=== PATIENT | female | born 1950 | race Caucasian/White ===

== ENCOUNTER 2023-11-27 09:58 | Outpatient (CLI) | payer OTHER, SELFPAY ==
--- NOTE | ~2023-11-27 | XR_ITS ---
Clinical Indication: Shortness of breath PA and lateral views of the chest: Comparison: None Findings: The lungs are clear, without evidence of focal consolidation or pleural effusion. Cardiome diastinal silhouette is within normal limits. Bones and soft tissues are unremarkable. Impression: Normal chest. Reviewed, dictated and finalized at [facility]. IAC TECHNOLOGIST Impression: Normal chest.
== END 2023-11-27 09:59 | disposition home or self-care (01) ==
PROVIDERS: PCP Family Medicine; Visit Provider Nurse Practitioner Family
DX: R06.02 Shortness of breath (principal)
CPT/HCPCS: 71046

== ENCOUNTER 2024-01-12 10:48 | Outpatient (CLI) | payer OTHER, SELFPAY ==
[2024-01-12 14:11] LABS: Alanine Aminotransferase 56 U/L (6-35); Albumin Level 4.4 g/dL (3.5-5.1); Alkaline Phosphatase 78 U/L (38-126); Anion Gap 4 mmol/L (8-16); Aspartate Amino Transferase 59 U/L (14-36); Bilirubin,Total 0.4 mg/dL (0.2-1.3); Blood Urea Nitrogen 28 mg/dL (7-17); Calcium 9.7 mg/dL (8.4-10.2); Carbon Dioxide 33 mmol/L (22-30); Chloride 99 mmol/L (98-107); Estimated Glomerular Filt Rate > 60; Glucose 169 mg/dL (65-110); Potassium 4.3 mmol/L (3.4-5.0); Sodium 136 mmol/L (137-145)
[2024-01-12 22:14] LABS: Hemoglobin A1C 8.6 % (<5.7)
== END 2024-01-12 10:49 | disposition home or self-care (01) ==
LOC: ANHGOSHLAB 10:50
PROVIDERS: PCP Family Medicine; Visit Provider Family Medicine
DX: E11.9 Type 2 diabetes mellitus without complications (principal); I10 Essential (primary) hypertension
CPT/HCPCS: 36415; 80053; 83036

== ENCOUNTER 2024-01-23 13:11 | Outpatient (CLI) | payer OTHER, SELFPAY ==
--- NOTE | ~2024-01-23 | XR_ITS ---
EXAMINATION: XR barium swallow DATE: 01/23/2024 14:00 INDICATION: Dysphagia. Choking on food. Hoarseness. TECHNIQUE: The patient drank thick barium, gas-producing crystals, and thin barium. Fluoroscopy of th e hypopharynx and esophagus was performed. Fluoroscopy exposure time was 0.4 minutes. The total numbe r of images was 263. The dose-area product was 1.631 Gy-cm^2. COMPARISON: None. FINDINGS: There is no mass or stricture of the esophagus. There is decreased primary and secondary es ophageal peristalsis. Abnormal tertiary waves were noted. There is no hiatal hernia. IMPRESSION: 1. Moderate esophageal dysmotility. Reviewed, dictated and finalized at location A.
== END 2024-01-23 13:12 | disposition home or self-care (01) ==
PROVIDERS: PCP Family Medicine; Visit Provider Family Medicine
DX: R13.19 Other dysphagia (principal); K22.4 Dyskinesia of esophagus
CPT/HCPCS: 74220

== ENCOUNTER 2024-02-10 09:49 | Outpatient (CLI) | payer OTHER, SELFPAY ==
--- NOTE | 2024-02-10 16:46 | WPDPFTINT ---
PFT Procedure Performed PFT Procedure Performed Spirometry with Pre/Post Bronchodilator Plethysmography (Lung Vol) Diffusing Cap (DLCO) Flow Vol Loop PFT Interpretation This is a pulmonary function test with pre and post-bronchodilator spirometry, plethysmography and diffusing capacity. The test was performed and results interpreted in accordance with the 2019 and 2005 ATS/ERS Task Force guidelines respectively using the Global Lung Function Initiative-2012 reference equations. Patient demonstrated good effort and cooperation. Reproducibility criteria were met. The quality of the pre bronchodilator spirometry maneuver was Grade A and post bronchodilator spirometry maneuver was Grade A. Findings: Spirometry: There is decreased maximal expiratory airflow at low lung volumes with concave expiratory flow tracing. The contour the inspiratory flow tracing is normal. The pre bronchodilator FVC is 1.95 L, 76% predicted. The pre bronchodilator FEV1 is 1.32 L, 66% predicted. The pre bronchodilator FEV1: FVC ratio is 68%. The post bronchodilator FVC is 2.13 L, representing a 9% increase. The post bronchodilator FEV1 is 1.56 L, representing an 18% increase. The post bronchodilator FEV1: FVC ratio 73%. The total lung capacity is 3.87 L, 82% predicted. The slow vital capacity is 2.20 L, 85% predicted. The functional residual capacity is 2.22 L, 82% predicted. The residual volume is 1.67 L, 76% predicted. Diffusing capacity: The diffusing capacity unadjusted for hemoglobin and carboxyhemoglobin is 15.6, 80% predicted. The diffusing capacity adjusted for alveolar volume is 4.09, 94% predicted. Impression: The slow vital capacity is greater than forced vital capacity with a mildly concave expiratory tracing a mildly decreased FEV1 with a normal FEV1: FVC ratio. This is suggestive of small airways disease. There is significant improvement after inhaling a single dose of albuterol. The lung volumes are normal. The diffusing capacity is normal. There are no prior studies for comparison
== END 2024-02-10 09:50 | disposition home or self-care (01) ==
LOC: ANHPFT 09:53
PROVIDERS: PCP Family Medicine; Visit Provider Family Medicine
DX: R06.02 Shortness of breath (principal)
CPT/HCPCS: 94060; 94726; 94729

== ENCOUNTER 2024-03-11 11:41 | Outpatient (CLI) | payer OTHER, SELFPAY ==
[2024-03-11 17:26] LABS: Anion Gap 7 mmol/L (4-12); Blood Urea Nitrogen 27 mg/dL (7-17); Calcium 9.5 mg/dL (8.4-10.2); Carbon Dioxide 34 mmol/L (22-30); Chloride 98 mmol/L (98-107); Estimated Glomerular Filt Rate > 60; Glucose 199 mg/dL (65-110); Potassium 3.5 mmol/L (3.4-5.0); Sodium 139 mmol/L (137-145)
[2024-03-11 18:22] LABS: Hemoglobin A1C 7.2 % (<5.7)
== END 2024-03-11 11:42 | disposition home or self-care (01) ==
LOC: ANHGOSHLAB 11:44
PROVIDERS: PCP Family Medicine
DX: R06.09 Other forms of dyspnea (principal); E87.70 Fluid overload, unspecified; Z79.899 Other long term (current) drug therapy
CPT/HCPCS: 36415; 80048; 83036

== ENCOUNTER 2024-09-06 12:42 | Outpatient (CLI) | payer OTHER, SELFPAY ==
--- NOTE | ~2024-09-06 | DEXA_ITS ---
Bone Density Report Name: MYNOR BRUNO Age: 73 Sex: Female Ethnicity: White Date of : 1950 Indication: postmenopausal; screening for osteoporosis; height loss; prior fracture; asthma or emphysema; hysterectomy; Referring Provider: JOE BANUELOS Study: Bone densitometry was performed. Exam Date: September 06, 2024 Accession number: [id number] Bone Density: Region BMD T-score Z-score Classification AP Spine(L1-L4) 1.411 3.3 5.6 Normal World Health Organization criteria for BMD impression classify patients as: Normal (T-score at or above -1.0), Osteopenia (T-score between -1.0 and -2.5), or Osteoporosis (T-score at or below -2.5). Clinical Information Provided by Patient: Has had a low trauma fracture Has the following medical conditions: Asthma or Emphysema, Hysterectomy Patient maximum height was 63.0 No regular weight bearing exercise Drinks caffeinated beverages Onset of menses at age 14 Number of children 1 Impression: The patient has normal bone mass. The patient has risk factors, including: previous fracture. Discussion: LOW RISK OF FRACTURE; BONE DENSITY IS WELL ABOVE THE MINIMUM DESIRABLE LEVEL AND ABOVE AVERAGE FOR AGE AND SEX AT ALL SKELETAL SITES TESTED. This person's bone density is above expected limits for age and sex. This is rarely clinically significant, but should be pursued if there are significant musculoskeletal complaints. The patient should follow a healthful lifestyle (good nutrition with adequate calcium and vitamin D, and appropriate weight-bearing exercise). Follow-Up: Consider repeating this study in 5 years or sooner if there is some new clinical indication. Reported by: ABENA on 09/06/2024 1:18:00 PM. Reviewed, dictated and finalized at location [facility]
== END 2024-09-06 12:43 | disposition home or self-care (01) ==
LOC: ANHIMG 12:42
PROVIDERS: PCP Family Medicine; Visit Provider Family Medicine
DX: Z78.0 Asymptomatic menopausal state (principal)
CPT/HCPCS: 77080

== ENCOUNTER 2024-11-15 14:42 | Outpatient (CLI) | payer MEDICARE, SELFPAY ==
--- NOTE | ~2024-11-15 | XR_ITS ---
EXAMINATION: XR cervical spine 4-5V DATE: 11/15/2024 15:08 INDICATION: Left shoulder and neck pain. TECHNIQUE: 6 views of cervical spine including flexion and extension views were obtained. COMPARISON: None. FINDINGS: There is 5 degrees levocurvature of cervicothoracic spine. There is kyphosis of cervical sp ine. Spine is hypomobile with flexion and extension. There is 2 mm retrolisthesis of C6 on C7. Verteb ral body heights are normal. There is severely decreased disc height at C3-C4, C4-C5, C5-C6, and C6-C 7 with interbody fusion at C4-C5 and C6-C7. There is multilevel facet joint osteoarthritis, severe on the right at C2-C3. There are laminectomies from C3 to C6. There is instrumentation of the laminecto mies from C4 to C6. There is mild central canal stenosis at C4-C5, C5-C6, and C6-C7 with posterior de compression. No prevertebral soft tissue swelling. IMPRESSION: 1. Severe cervical spondylosis. Reviewed, dictated and finalized at location A. [place] ROUTE SUPERVISOR
--- NOTE | ~2024-11-15 | XR_ITS ---
EXAMINATION: XR shoulder LT min 2V DATE: 11/15/2024 15:08 INDICATION: Left shoulder pain. TECHNIQUE: 4 views of left shoulder were obtained. COMPARISON: None. FINDINGS: Alignment is normal. No fracture. There is moderate osteoarthritis of glenohumeral joint an d acromioclavicular joint. There is calcific tendinitis of the rotator cuff. IMPRESSION: 1. Polyarticular osteoarthritis. 2. Calcific tendinitis of the rotator cuff. Reviewed, dictated and finalized at location A. E DIRECTOR
== END 2024-11-15 14:43 | disposition home or self-care (01) ==
LOC: GOSHIMG 14:43
PROVIDERS: PCP Family Medicine; Visit Provider Family Medicine
DX: M19.012 Primary osteoarthritis, left shoulder (principal); M75.32 Calcific tendinitis of left shoulder; M43.02 Spondylolysis, cervical region; Z91.81 History of falling
CPT/HCPCS: 72050; 73030

== ENCOUNTER 2025-03-11 14:53 | Outpatient (CLI) | payer MEDICARE, SELFPAY ==
--- OUTSIDE RECORDS SUMMARY | 2025-03-11 14:56 | XMS_ITS | Clinical Summary ---
Author Organization [facility] Address [address] [place] [address] Care Team Providers Care Clinical Dietetic Technician Name Role Phone Unavailable Primary Care Provider Unavailabl e Source Comments [facility],non-owned Affiliates and Associated Physician Practices is amultiple site organization consisting of ambulatory clinics and hospital sitesin [place], [place], [place]. This disclosure is being madepursuant to the Care Everywhere program and may not contain all information available regarding this patient. Last updated 18.[facility] Social History Tobacco Use Types Packs/Day Years Used Date Smoking Tobacco: Never Assessed Comments Unknown Sex and Gender Information Value Date Recorded Sex Assigned at Not on file Legal Sex Female 11:30 AM CDT Gender Identity Not on file Sexual Orientation Not on file Plan of Treatment Health Maintenance Due Date Last Done Comments BONE DENSITY TESTING 1950 COLOGUARD (AGES 45-75) - COL ON CA SCREENING 1950 COLON MONITORING 1950 COLONOSCOPY - COLON CA SCREENING 1950 CT COLONOGRAPHY - COLON CA SCREENING 1950 Colorectal Cancer Screening 1950 FIT - COLON CA SCREENING 1950 FLEX SIG - COLON CA SCREENING 1950 LIPID TESTING 1950 MAMMOGRAM 1950 HEPATITIS C SCREENING 10/03/1969 DTAP/TDAP/TD VACCINES (1 - Tdap) 1970 PNEUMOCOCCAL VACCINE 50+ (1 of 1 - PCV) 2001 ZOSTER VACCINE (1 of 2) 2001 COVID-19 VACCINE ( - 2023-2 5 season) 2024 DEPRESSION SCREENING 10/20/2024 MEDICARE AWV CALENDAR YEAR 2024 INFLUENZA VACCINE (Season Ended) 2025 Respiratory Syncytial Virus (RSV) Vaccine Pt: or over 60 yrs (1 - 1-dose 75+ series) 2026 HEPATITIS B VACCINE Aged Out No longe r eligible based on patient's age to complete this topic HIB VACCINE Aged Out No longer eligi ble based on patient's age to complete this topic HPV VACCINE Aged Out No longer eligi ble based on patient's age to complete this topic MENINGOCOCCAL (Group B) VACC INE SHARED DECISION-MAKING Aged Out No longer eligibl e based on patient's age to complete this topic MENINGOCOCCAL GROUPS A/C/Y/W VACCINE Aged Out No longer eligible b ased on patient's age to complete this topic Insurance [employer] MANAGED MEDICARE ADV
--- OUTSIDE RECORDS SUMMARY | 2025-03-11 14:56 | XMS_ITS | Encounter Summary ---
Author Organization [facility] Address [address] [place] [address] Care Team Providers Care Electric Bath Attendant Name Role Phone Unavailable Primary Care Provider Unavailabl e Encounter Details Date Type Department Care Team (Late st Contact Info) Description 05/07/2023 Lab Requisition [facility] - DermPath Lab [address] [place] [address] Gilma Perez DO [address] [place] [address] Social History Tobacco Use Types Packs/Day Years Used Date Smoking Tobacco: Never Assessed Comments Unknown Sex and Gender Information Value Date Recorded Sex Assigned at Not on file Legal Sex Female 11:30 AM CDT Gender Identity Not on file Sexual Orientation Not on file documented as of this encounter Plan of Treatment Not on file documented as of this encounter Procedures Procedure Name Priority Date/Time Associated Diagnosis Comments DERMATOPATHOLOGY Routine 05/07/2023 11:1 3 AM CDT documented in this encounter Results * DERMATOPATHOLOGY (05/07/2023 11:13 AM CDT) Case Report Dermatopathology Report Case: [id number] Authorizing Provider: Gilma Perez DO Collected: 05/07/2023 11:13 AM Ordering Location: [facility] Received: 05/08/2023 09:10 AM Pathologist: Yaa Arboleda MD Specimen: Skin, left inframammary 12:49 PM CDT DERMATOPATHOLOGY LABORATORY Final Diagnosis Specimen A. SKIN, left inframammary: BENIGN VERRUCOUS KERATOSIS, INFLAMED (L82.1) EPIDERMAL NECROSIS SUGGESTIVE OF EXCORIATION (L98.499) 12:49 PM CDT DERMATOPATHOLOGY LABORATORY at 1249 CDT Clinical History BVK-IR vs. SCC 3 12:49 PM CDT DERMATOPATHOLOGY LABORATORY Gross Description Specimen A: Received is one formalin filled container labeled with the patient's name and designated left inframammary. The specimen consists of a shave biopsy measuring [id number]. Jar 0. 3 12:49 PM CDT DERMATOPATHOLOGY LABORATORY Microscopic Description Specimen A. SKIN, left inframammary: Sections show hyperkeratosis, papillomatosis, hypergranulosis, and acanthosis. Inflammatory cells are present within the dermis. These histological findings can be seen in a verruca vulgaris or a seborrheic keratosis. The epidermis is focally necrotic and covered with a scale-crust. There is fibrin at the base. 3 12:49 PM CDT DERMATOPATHOLOGY LABORATORY Disclaimer An external and internal positive and negative controls are appropriate for the histochemical, immunohistochemical and immunofluorescence stain(s) in this case (if any), except where stated explicitly. The performance characteristics of the stain(s) cited in this report were developed and its performance characteristic determined by the Dermatopathology Laboratory at [facility], directed by Dr. Kushal Andrade. These tests need not be, and therefore are not, approved by the [place] Food and Drug Administration. The tests are used for clinical purposes. Billing Codes Specimen Charges Stain Charges 69618 1 3 12:49 PM CDT DERMATOPATHOLOGY LABORATORY Embedded Images 3 12:49 PM CDT DERMATOPATHOLOGY LABORATORY Pathology/Cytolo gy TISSUE SPECIMEN FROM SKIN / Unknown 05/07/2023 11:13 AM CDT 05/08/2023 9:10 AM CDT us Gilma Perez DO LAB - PATHOLOGY/CYTOLOGY ORDERABLES Final Result DERMATOPATHOLOGY LABORATORY [facility] - Department of Dermatology [address] [place] [address], [facility] [phone] documented in this encounter Visit Diagnoses Not on filedocumented in this encounter
[2025-03-11 18:47] LABS: Alanine Aminotransferase 70 U/L (6-35); Albumin Level 4.3 g/dL (3.5-5.1); Alkaline Phosphatase 66 U/L (38-126); Anion Gap 6 mmol/L (4-12); Aspartate Amino Transferase 78 U/L (14-36); Bilirubin,Total 0.2 mg/dL (0.2-1.3); Blood Urea Nitrogen 17 mg/dL (7-17); Calcium 9.3 mg/dL (8.4-10.2); Carbon Dioxide 33 mmol/L (22-30); Chloride 96 mmol/L (98-107); Estimated Glomerular Filt Rate > 60; Glucose 151 mg/dL (65-110); Potassium 3.7 mmol/L (3.4-5.0); Sodium 135 mmol/L (137-145)
== END 2025-03-11 14:54 | disposition home or self-care (01) ==
LOC: ANHGOSHLAB 14:54
PROVIDERS: PCP Family Medicine; Visit Provider Family Medicine
DX: E83.51 Hypocalcemia (principal); I10 Essential (primary) hypertension
CPT/HCPCS: 36415; 80053

== ENCOUNTER 2025-04-06 07:48 | Outpatient (CLI) | payer MEDICARE, SELFPAY ==
--- NOTE | ~2025-04-06 | MR_ITS ---
MRI of the abdomen: Clinical indication: Neoplasm of unspecified behavior of the digestive system. Technique: Coronal SSFSE ARC, WATER:coronal LAVA-FLEX, Coronal 2D FIESTA FatSat, Axial SSFSE BH ARC, Axial 3D DualEcho BH, Axial SSFSE-IR, Axial DWI b=500, Axial 2D FIESTA FatSat, pre and dynamic postco ntrast Axial LAVA ARC, postcontrast Coronal In and Opposed phase LAVA FLEX. Following intravenous adm inistration of 14 cc MultiHance gadolinium, T1-weighted fat-sat imaging was performed in the axial an d coronal planes. Findings: Gallbladder absent. The common bile duct is unremarkable. No filling defects are seen withi n the CBD. No evidence of intrahepatic biliary ductal dilatation. The pancreatic duct is normal in si ze. Diffuse signal loss in the liver on out of phase images relative to in phase images is compatible wit h diffuse fatty infiltration. No focal hepatic mass seen. Spleen, adrenals, kidneys appear normal. Se veral small cystic lesions are scattered in the pancreas, largest measuring 9 mm. The aorta and the p araaortic regions appear normal. Impression: Several small cystic pancreatic lesions, which could reflect small IPMNs. Consider follow-up exam in one year. Diffuse fatty infiltration of liver. Reviewed, dictated and finalized at location . Impression: Several small cystic pancreatic lesions, which could reflect small IPMNs. Consi solo follow-up exam in one year. Diffuse fatty infiltration of liver.
== END 2025-04-06 07:49 | disposition home or self-care (01) ==
PROVIDERS: PCP Family Medicine; Visit Provider Internal Medicine Gastroenterology
DX: K86.2 Cyst of pancreas (principal); K76.0 Fatty (change of) liver, not elsewhere classified; D49.0 Neoplasm of unspecified behavior of digestive system
CPT/HCPCS: 74183; 76376; A9577

== ENCOUNTER 2025-06-09 03:01 | Day surgery (SDC) | payer MEDICARE, SELFPAY ==
[2025-05-24 14:30] VITALS: BMI 29.8
[2025-06-09 08:13] VITALS: BP 161/60; PULSE 73; RESP 16; TEMP 36.4; O2SAT 96; BMI 29.8
[2025-06-09] MEDS: SIMETHICONE ORAL SUSPENSION 20 MG/0.3 ML 30 ML BOTTLE 1.8 ML PO (08:15)
[2025-06-09] MEDS: LACTATED RINGERS 1,000 ML 150 ML IV CONT (08:22)
--- NOTE | 2025-06-09 09:09 | WPDANESEPPF ---
Anes - Initial Pre Proc Eval Procedure: Operation Date: 06/09/25 09:30 Proposed Procedures p Esophagogastroduodenoscopy - Rustam Montoya MD Date/Time: 06/09/25 09:09 Surgeon: Rustam Montoya MD Pre Op Diagnosis: Dysphagia, unspecified Patient Data Age: 74 Gender: F Height: 1.57 m Weight: 74 kg Last Vital Signs Temp 36.4 C L 06/09/25 08:13 Pulse 73 06/09/25 08:13 Resp 16 06/09/25 08:13 BP 161/60 H 06/09/25 08:13 Pulse Ox 96 06/09/25 08:13 O2 Del Method Room Air 06/09/25 08:13 Allergies Allergy/AdvReac Type Severity Reaction Status Date / Time adhesive tape Allergy Mild Blister Verified 06/09/25 08:11 codeine Allergy Mild Hallucinati Verified 06/09/25 08:11 ng lisinopril Allergy Mild Hallucinati Verified 06/09/25 08:11 ng [id number]-KPS-BxD Reductase Allergy Mild Rash Verified 06/09/25 08:11 Inhibitor sulfa antibiotics Allergy Mild Abdominal Uncoded 06/09/25 08:11 Pain DIPHENHYDRAMINE HCL AdvReac Mild Itching Uncoded 06/09/25 08:11 Home Medications ?Medication ?Instructions ?Recorded ?Confirmed ?Type blood sugar diagnostic (FreeStyle #100 ea 12/15/23 03/11/25 Rx Lite Strips) lancets 33 gauge #100 ea 12/15/23 03/11/25 Rx furosemide 20 mg tablet 20 mg PO DAILY PRN edema 07/19/24 05/24/25 History glipizide 10 mg tablet 10 mg PO BID #180 tabs 07/29/24 06/09/25 Rx fluticasone 250 mcg-salmeterol 50 1 inh inhalation BID #180 ea 08/18/24 06/09/25 Rx mcg/dose blistr powdr for inhalation (Advair Diskus) albuterol sulfate 90 mcg/actuation 2 puff inhalation Q4H PRN 10/01/24 05/24/25 Rx aerosol inhaler shortness of breath or wheezing #25.5 grams potassium chloride 10 mEq 10 meq PO DAILY PRN with furosemide 11/15/24 05/24/25 History tablet,extended release duloxetine 20 mg capsule,delayed 20 mg PO DAILY #90 caps 01/07/25 06/09/25 Rx release levothyroxine 88 mcg tablet 88 mcg PO DAILY #90 tabs 03/10/25 06/09/25 Rx baclofen 10 mg tablet 10 mg PO BID #180 tabs 03/11/25 06/09/25 Rx metformin 500 mg tablet,extended 1,000 mg (2 x 500 mg) PO BID #360 03/11/25 06/09/25 Rx release 24 hr (Glucophage XR) tabs metoprolol succinate 100 mg 100 mg PO DAILY 03/11/25 06/09/25 History tablet,extended release 24 hr ezetimibe 10 mg tablet 10 mg PO DAILY #90 tabs 03/22/25 06/09/25 Rx omeprazole 20 mg capsule,delayed 20 mg PO DAILY #90 caps 04/08/25 06/09/25 Rx release alprazolam 0.5 mg tablet 0.5 mg PO QHS #90 tabs 05/09/25 06/09/25 Rx fluticasone propionate 50 2 spray intranasal BID #48 grams 05/19/25 06/09/25 Rx mcg/actuation nasal spray,suspension (Flonase Allergy Relief) aspirin 325 mg tablet,delayed 325 mg PO DAILY 05/24/25 06/09/25 History release candesartan 32 1 tablet PO DAILY #90 tabs 05/30/25 06/09/25 Rx mg-hydrochlorothiazide 12.5 mg tablet hydralazine 50 mg tablet 50 mg PO TID #270 tabs 06/07/25 06/09/25 Rx Laboratory Tests 06/09/25 08:28 POC Capillary Glucose 160 H mg/dl (65-105) Patient hx anesthesia problems: none Family hx anesthesia problems: none Results Review: All pre-operative results and documents have been reviewed as part of the pre-operative evaluation. [facility] [place] Past Medical History Medical History Lymphedema of both lower extremities History of atrial fibrillation (~2014) Asthmatic pulmonary eosinophilia CHF (congestive heart failure) Elevated LFTs Type 2 diabetes mellitus without complications Family history of colon cancer Diabetic neuropathy Carotid stenosis, bilateral Macular degeneration of both eyes Right foot drop Pedal edema Osteoarthritis Environmental allergies Hypothyroidism (acquired) Essential (primary) hypertension Hyperlipidemia Anxiety Surgical History Surgical History History of total right hip replacement (~2014) History of total left hip replacement (~2012) History of cholecystectomy (~2004) History of surgery on right wrist (~1981) repair of wrist tendon and ligament tears History of hysterectomy (~1980) History of cervical spinal surgery (~10/2017) History of lumbosacral spine surgery x 10/2017, 12/2017 Family History Family History Other Colon polyp Heart disease Dementia Hypertension Brain abscess due to Zeina species Social History Social History Smoking status: Never smoker Alcohol intake: never Substance use: never Substance use type: does not use Lack of Transportation: No Lack of Food: Never True Current Housing: I Have Housing Concerned About Future Housing: No Difficulty Paying Gas/Electric Bills: No Difficulty Paying for Meds: No Currently Unemployed: No Education: High School Diploma/GED Difficulty w/ Childcare or Family Care: No Occupation/Education: retired Gender identity (if verbalized by the patient): Female Agree to blood products: Yes Anes - Eval Final PreProcedure Day of Procedure 06/09/25 09:09 Patient weight: obese Heart: regular rate and rhythm Lungs: clear to auscultation Airway: Mallampati scale class II Neurological: alert and oriented Last oral intake: >/= 8 hours ASA classification: III Emergent: no Anesthetic plan: proceed Anesthesia type and monitoring: general GIVS and standard monitoring Results Review: All pre-operative results and documents have been reviewed as part of the pre-operative evaluation. Informed Consent: The patient's anesthetic plan and its attendant risks and benefits were discussed with the patient/family/POA. Questions were solicited and answers provided to the satisfaction of the patient/family/POA.
--- NOTE | 2025-06-09 09:17 | PM.IMHP ---
H&P: HPI History of Present Illness Date/Time: 06/09/25 09:17 Chief Complaint: Dysphagia Narrative: the patient has been having dysphagia to solids and liquids for over a year. A barium swallow done in January 2024 shows dysmotility and suspicion for achalasia. She is here for EGD. Review of Systems Review of Systems: All systems reviewed & are unremarkable except as noted in HPI and below PMFSH Past Medical History Medical History Lymphedema of both lower extremities History of atrial fibrillation (~2014) Asthmatic pulmonary eosinophilia CHF (congestive heart failure) Elevated LFTs Type 2 diabetes mellitus without complications Family history of colon cancer Diabetic neuropathy Carotid stenosis, bilateral Macular degeneration of both eyes Right foot drop Pedal edema Osteoarthritis Environmental allergies Hypothyroidism (acquired) Essential (primary) hypertension Hyperlipidemia Anxiety Surgical History Surgical History History of total right hip replacement (~2014) History of total left hip replacement (~2012) History of cholecystectomy (~2004) History of surgery on right wrist (~1981) repair of wrist tendon and ligament tears History of hysterectomy (~1980) History of cervical spinal surgery (~10/2017) History of lumbosacral spine surgery x 10/2017, 12/2017 Family History Family History Other Colon polyp Heart disease Dementia Hypertension Brain abscess due to Zeina species Social History Social History Smoking status: Never smoker Alcohol intake: never Substance use: never Substance use type: does not use Lack of Transportation: No Lack of Food: Never True Current Housing: I Have Housing Concerned About Future Housing: No Difficulty Paying Gas/Electric Bills: No Difficulty Paying for Meds: No Currently Unemployed: No Education: High School Diploma/GED Difficulty w/ Childcare or Family Care: No Occupation/Education: retired Gender identity (if verbalized by the patient): Female Agree to blood products: Yes Meds Home Medications and Allergies Home Medications ?Medication ?Instructions ?Recorded ?Confirmed ?Type blood sugar diagnostic (FreeStyle #100 ea 12/15/23 03/11/25 Rx Lite Strips) lancets 33 gauge #100 ea 12/15/23 03/11/25 Rx furosemide 20 mg tablet 20 mg PO DAILY PRN edema 07/19/24 05/24/25 History glipizide 10 mg tablet 10 mg PO BID #180 tabs 07/29/24 06/09/25 Rx fluticasone 250 mcg-salmeterol 50 1 inh inhalation BID #180 ea 08/18/24 06/09/25 Rx mcg/dose blistr powdr for inhalation (Advair Diskus) albuterol sulfate 90 mcg/actuation 2 puff inhalation Q4H PRN 10/01/24 05/24/25 Rx aerosol inhaler shortness of breath or wheezing #25.5 grams potassium chloride 10 mEq 10 meq PO DAILY PRN with furosemide 11/15/24 05/24/25 History tablet,extended release duloxetine 20 mg capsule,delayed 20 mg PO DAILY #90 caps 01/07/25 06/09/25 Rx release levothyroxine 88 mcg tablet 88 mcg PO DAILY #90 tabs 03/10/25 06/09/25 Rx baclofen 10 mg tablet 10 mg PO BID #180 tabs 03/11/25 06/09/25 Rx metformin 500 mg tablet,extended 1,000 mg (2 x 500 mg) PO BID #360 03/11/25 06/09/25 Rx release 24 hr (Glucophage XR) tabs metoprolol succinate 100 mg 100 mg PO DAILY 03/11/25 06/09/25 History tablet,extended release 24 hr ezetimibe 10 mg tablet 10 mg PO DAILY #90 tabs 03/22/25 06/09/25 Rx omeprazole 20 mg capsule,delayed 20 mg PO DAILY #90 caps 04/08/25 06/09/25 Rx release alprazolam 0.5 mg tablet 0.5 mg PO QHS #90 tabs 05/09/25 06/09/25 Rx fluticasone propionate 50 2 spray intranasal BID #48 grams 05/19/25 06/09/25 Rx mcg/actuation nasal spray,suspension (Flonase Allergy Relief) aspirin 325 mg tablet,delayed 325 mg PO DAILY 05/24/25 06/09/25 History release candesartan 32 1 tablet PO DAILY #90 tabs 05/30/25 06/09/25 Rx mg-hydrochlorothiazide 12.5 mg tablet hydralazine 50 mg tablet 50 mg PO TID #270 tabs 06/07/25 06/09/25 Rx Allergies Allergy/AdvReac Type Severity Reaction Status Date / Time adhesive tape Allergy Mild Blister Verified 06/09/25 08:11 codeine Allergy Mild Hallucinati Verified 06/09/25 08:11 ng lisinopril Allergy Mild Hallucinati Verified 06/09/25 08:11 ng Fluhhlh-ELY-KeR Reductase Allergy Mild Rash Verified 06/09/25 08:11 Inhibitor sulfa antibiotics Allergy Mild Abdominal Uncoded 06/09/25 08:11 Pain DIPHENHYDRAMINE HCL AdvReac Mild Itching Uncoded 06/09/25 08:11 Vital Signs Vital Signs - 24 hr 06/09/25 08:13 Temperature 97.5 F L Pulse Rate 73 Respiratory Rate 16 Blood Pressure 161/60 H Pulse Oximetry 96 Oxygen Delivery Room Air Exam Const: General: cooperative and healthy appearing Resp: Effort & Inspection: normal respiratory effort and able to speak in complete sentences Auscultation: clear to auscultation bilaterally Cardio: Rate: regular rate Rhythm: regular rhythm GI: Inspection: normal to inspection GI Palp: No No hepatosplenomegaly present Auscultation: normal bowel sounds Rectal Exam: deferred Skin: General skin exam: normal color Psych: Appearance: grossly normal Mental Status: mental status grossly normal Assessment and Plan Assessment and plan (1) Dysphagia: Code(s): R13.10 - Dysphagia, unspecified Status: Acute Assessment and Plan: The patient is deemed a good candidate for the procedure. Consent signed. Will proceed.
[2025-06-09] MEDS: BENZOCAINE (*SP) 60 ML SPRAY CAN (HURRICAINE) 1 SPRAY MUCOUS MEM (09:20)
--- NOTE | 2025-06-09 09:29 | S_PTH ---
PATIENT: Rosario Walton LOC: [facility] U#:[id number] AGE/SX: 74/F ROOM: RE06/09/[address]: Rustam Montoya MD : [id number] BED: DIS: 06/09/2025 SPEC #: [id number] RECD: 06/09/25 11:39 STATUS: AJIT REQ #: [id number] [place]ADE: 06/09/25 09:[address]: Rustam Montoya DEPT: [facility] Surgical RECD BY: Amaris Prakash ENTERED: 06/09/25 11:40 SP TYPE: Surgical OTHR DR: Silverio Hall MD Tissues: A - Esophageal Biopsy Procedures: Hematoxylin and Eosin Stain Gross and Microscopic Level 4
[2025-06-09 09:35] VITALS: BP 134/66; PULSE 65; RESP 29; O2SAT 98
[2025-06-09 09:45] VITALS: BP 144/74; PULSE 65; RESP 19; O2SAT 98
[2025-06-09 09:55] VITALS: BP 150/76; PULSE 64; RESP 18; O2SAT 98
== END 2025-06-09 10:08 | disposition home or self-care (01) ==
PROVIDERS: PCP Family Medicine; Visit Provider Internal Medicine Gastroenterology
PROC: 0DJ08ZZ Inspection of Upper Intestinal Tract, Via Natural or Artificial Opening Endoscopic (ICD-10-PCS; CPT 43239; principal; 2025-06-09 09:30)
DX: K21.00 Gastro-esophageal reflux disease with esophagitis, without bleeding (principal); K29.51 Unspecified chronic gastritis with bleeding; E78.5 Hyperlipidemia, unspecified; E03.9 Hypothyroidism, unspecified; E11.40 Type 2 diabetes mellitus with diabetic neuropathy, unspecified; F41.9 Anxiety disorder, unspecified; I11.9 Hypertensive heart disease without heart failure; I50.9 Heart failure, unspecified; I48.91 Unspecified atrial fibrillation; J82.83 Eosinophilic asthma; H35.30 Unspecified macular degeneration; M19.90 Unspecified osteoarthritis, unspecified site; E66.9 Obesity, unspecified; Z68.29 Body mass index [BMI] 29.0-29.9, adult; Z79.84 Long term (current) use of oral hypoglycemic drugs; Z79.51 Long term (current) use of inhaled steroids; Z79.82 Long term (current) use of aspirin; Z98.890 Other specified postprocedural states; Z90.49 Acquired absence of other specified parts of digestive tract; Z98.1 Arthrodesis status; Z86.79 Personal history of other diseases of the circulatory system; Z80.0 Family history of malignant neoplasm of digestive organs; Z83.719 Family history of colon polyps, unspecified; Z82.49 Family history of ischemic heart disease and other diseases of the circulatory system
CPT/HCPCS: 43239; 82948; 88305; J2003; J2704; J7120

== ENCOUNTER 2025-09-03 13:20 | Outpatient (CLI) | payer MEDICARE, SELFPAY ==
--- NOTE | ~2025-09-03 | MR_ITS ---
EXAMINATION: MR brain/brain stem wo con DATE: 09/03/2025 14:09 INDICATION: Headache, unspecified. TECHNIQUE: Magnetic resonance imaging (MRI) of the brain and brainstem was performed without intravenous contrast. COMPARISON: None. FINDINGS: There are scattered areas of nonspecific increased T2-weighted signal intensity in the cerebral white matter, which is within normal limits for the patient's age. There is no intracranial hemorrhage, acute infarction, or abnormal intracranial mass lesion. The ventricles are normal in size. There are likely changes of ocular lens replacement surgeries. The mastoid air cells are normal. The paranasal sinuses are clear. IMPRESSION: 1. Normal aging brain. Reviewed, dictated and finalized at location E. [facility] [employer] IMPRESSION: 1. Normal aging brain.
--- OUTSIDE RECORDS SUMMARY | 2025-09-03 13:23 | XMS_ITS | Clinical Summary ---
Author Organization [facility] Address [address] [place] [address] Care Team Providers Care Wildlife Biostation Research Ecologist Name Role Phone Unavailable Primary Care Provider Unavailabl e Source Comments [facility],non-owned Affiliates and Associated Physician Practices is amultiple site organization consisting of ambulatory clinics and hospital sitesin [place], [place], [place] and [place]. This disclosure is being madepursuant to the Care Everywhere program and may not contain all information available regarding this patient. Last updated 18.[facility] Encounters Date Type Department Care Team Description 06/17/2025 Telephone [facility] [address] [place] [address] Steve Gauthier, MIS Scheduling Outreach (Esophageal manometry) 06/16/2025 Telephone [facility] [address] [place] [address] Steve Gauthier, RN Scheduling Outreach (Esophageal manometry scheduling attempt x2) 06/13/2025 Telephone [facility] [address] [place] [address] Steve Gauthier RN Scheduling Outreach (Esophageal manometry scheduling attempt x1) 06/13/2025 Telephone [facility] [address] [place] [address] Steve Gauthier, RN Returned Call from Last 3 Months Social History Tobacco Use Types Packs/Day Years [...] 2001 ZOSTER VACCINE (1 of 2) 2001 DEPRESSION SCREENING 10/20/2024 MEDICARE AWV CALENDAR YEAR 2024 COVID-19 VACCINE (1 - 2023-2 5 season) 2025 INFLUENZA VACCINE (#1) 2025 Respiratory Syncytial Virus (RSV) Vaccine Pt: [...] patient's age to complete this topic Insurance [facility] MANAGED MEDICARE ADV [facility] MANAGED MEDICARE ADV SELF PAY NO INSURANCE Member Subscriber Plan / Payer (Ef fective for All Dates) Name:Rosario Walton Member ID:Not on file Relation to Subscriber:Not on file Name:ROSARIO WALTON Subscriber ID:Not on file (Home) Address: [address] [place] [id number] Payer ID:Not on file Group ID:Not on file Type:Self Pay Address: [place], [place]
--- OUTSIDE RECORDS SUMMARY | 2025-09-03 13:23 | XMS_ITS | Data Portability ---
Author Organization [facility] OFFICE Address [address] [place] [phone] Assessment No assessment recorded. Plan of Treatment Reminders Order Date Submit Date Provider Last Modified By Organization Details Last Modified Time Details Appointments None recorded . Lab None recorded . Referral None recorded . Procedures None recorded . Surgeries None recorded . Imaging electroc ardiogra m 2018 019 oalmousalli Not available 9 15:11:51 electroc ardiogra m 2018 019 AIDE Not available 9 18:33:34 electroc ardiogra m 2018 019 AIDE Not available 9 12:59:28 Medication Orders Repatha SureClic k 140 mg/mL subcutan eous pen injector 2018 019 [email or web address] [facility], [address] [place], [address], 1 12:28:44 Repatha SureClic k 140 mg/mL subcutan eous pen injector 2018 019 [facility], [address] [place], [address], 9 14:38:18 Repatha SureClic k 140 mg/mL subcutan eous pen injector 2018 019 [facility], [address] [place], [address], 03/12/201 9 10:41:44 Patient TargetsNo targets recorded. Patient Instructions Encounter Date Encounter Id Patient Instructions Last Modified By Organization Details Last Modified Time 12/29/2018 [id number] palpitations: care instructions [email or web address] Not available 12/29/2018 10:39:49 sleep apnea: care instructions oalmousalli Not available 12/29/2018 10:39:49 atrial fibrillation: care instructions [email or web address] Not available 12/29/2018 10:39:49 high cholesterol: care instructions [email or web address] Not available 12/29/2018 10:39:49 Weight loss 20 pounds Exercise advised Low cholesterol diet advised Low sodium diet advised. Not available 12/29/2018 10:18:04 This document was scribed by Madhavi MONROY Not available 12/29/2018 10:17:58 02/02/2019 [id number] palpitations: care instructions [email or web address] Not available 02/02/2019 15:11:51 sleep apnea: care instructions oalmousalli Not available 02/02/2019 15:11:51 atrial fibrillation: care instructions oalmousalli Not available 02/02/2019 15:11:51 high cholesterol: care instructions oalmousalli Not available 02/02/2019 15:11:51 Exercise advised Low cholesterol diet advised Low sodium diet advised. [email or web address] Not available 02/05/2019 21:41:00 08/03/2019 [id number] palpitations: care instructions mzabad Not available 08/03/2019 15:47:31 sleep apnea: care instructions mzabad Not available 08/03/2019 15:47:31 atrial fibrillation: care instructions mzabad Not available 08/03/2019 15:47:31 high cholesterol: care instructions mzabad Not available 08/03/2019 15:47:31 Weight loss 20 pounds Exercise advised Low cholesterol diet advised Low sodium diet advised Not available 08/03/2019 14:55:04 Scribed by Lilian Perez PA-C Not available 08/03/2019 14:55:11 09/07/2021 [id number] palpitations: care instructions oalmousalli Not available 09/07/2021 13:05:15 sleep apnea: care instructions oalmousalli Not available 09/07/2021 13:05:15 atrial fibrillation: care instructions oalmousalli Not available 09/07/2021 13:05:15 high cholesterol: care instructions oalmousalli Not available 09/07/2021 13:05:15 Exercise advised Low cholesterol diet advised Low sodium diet advised. [email or web address] Not available 09/07/2021 13:04:31 11/28/2021 [id number] palpitations: care instructions [email or web address] Not available 11/28/2021 14:09:36 high cholesterol: care instructions [email or web address] Not available 11/28/2021 14:09:36 leg and ankle edema: care instructions [email or web address] Not available 11/28/2021 14:09:36 Reason for Referral None Reported. Results Created Date Observation Date Name Description Value Unit Range Abnormal Flag Note LastModifiedBy Organization Detail LastModifiedTime 02/03/20 19 02/02/2019 elect rocodin diogr am Result EKG : Incomp lete R BBB. Low voltag e in chest leads. Poor R progre ssion in chest leads. Not Available Adonay Ying MD [address] [facility] [address], [place], [address], 02/02/2019 14:43:11 12/30/19 19 12/29/2018 elect alisa buenogr am No observ ation record ed. [email or web address] Not Available 2018 17:14:27 01/30/20 19 01/18/2019 CT, angio gram, chest , w/wo contr ast No observ ation record ed. Not Available 01/29 15:13:59 02/03/20 19 02/02/2019 elect alisa diogr am No observ ation record ed. [email or web address] Not Available 02/02 17:07:54 08/11/2008/03/2019 elect alisa buenogr am No observ ation record ed. [email or web address] Not Available 2018 10:55:35 08/17/20 19 08/05/2019 teresa r monit or No observ ation record ed. [email or web address] Not Available 2018 17:05:18 04/05/20 20 03/16/2020 US, carot id arter y No observ ation record ed. [email or web address] Not Available 2019 16:16:24 09/20/20 21 09/07/2021 elect rocar diogr am No observ ation record ed. [email or web address] Not Available 2020 11:12:34 09/25/2009/17/2021 US, echoc ardio gram No observ ation record ed. [email or web address] [facility] [address], [place], [address], 09/27/2021 12:46:44 10/01/2009/17/2021 US, echoc ardio gram No observ ation record ed. [email or web address] Not Available 2020 13:49:04 12/05/19 22 11/28/2021 elect rocar diogr am No observ ation record ed. [email or web address] Not Available 12/05 11:00:38 Result Notes None recorded. Problems Name Problem SNOMED Code Status Onset Date Resolution Date Notes Provider Name and Address Organization Details Recorded Time Menopause Active Barth [place] - [facility] 8 16:58:08 Degenerati ve disorder of macula 944767016 Active Barth [place] [facility] 8 16:58:08 Depressive disorder 90319438 Active Barth [place] [facility] 8 16:58:08 Non-organi c sleep disorder 437554701 Active Barth [place] [facility] 8 16:58:08 Atrial fibrillati on 05441974 Active Barth [place] [facility] 8 16:58:09 Benign hypertensi on 70297908 Active 2015 [facility] [place] [facility] 6 03:13:46 Hyperlipid emia 33934177 Active 2015 [place] [facility] 6 03:14:54 Diabetes mellitus 08705569 Active 2015 [place] [facility] 6 03:15:38 Transient ischemia 78542683 Active 2015 attacks(le ft side) Lary [place]al[place] [facility] 8 16:58:08 Hypothyroi dism 17081942 Active 2015 Med [place], [place] - [facility] 6 03:17:32 Anxiety 94819277 Active 2015 Lary [place]al[place] [facility] 8 16:58:09 History of depression 421702114 Active 2015 Lary [place] [facility] 8 16:58:08 Osteoarthr itis 081416737 Active 2015 prMacular degenerati on [place] [facility] 6 03:19:04 Palpitatio ns 62333062 Active 2015 Lary [place] [facility] 8 16:58:09 Pre-surger y evaluation Active 2015 Lary [place] [facility] 8 16:58:08 Obstructiv e sleep apnea syndrome 66443473 Active 2015 Lary Sarahkari [place] [facility] 8 16:58:09 Obesity 276919609 Active 2015 Lary [place] [facility] 8 16:58:08 Spinal stenosis in cervical region 67493621 Active 2016 Lary [place] [facility] 8 16:58:09 Dyspnea on exertion 33052114 Active 2017 Zackery [place] [facility] 8 16:54:18 Abdominal weakness 877983190 Active 2021 Mac Esqu[place] [facility] 2 14:05:56 Edema 589979560 Active 2021 Mac Esqu[place] [facility] 2 14:06:03 Problem Notes None recorded. Procedures Surgical History Date Name Laterality Status Provider Name and Address Organization Details Recorded Time Cholecystectomy completed Barth [place] - [facility] 05/20/2016 05:14:20 Hysterectomy completed Barth Mesto [place] - [facility] 05/20/2016 05:14:34 Imaging Results None recorded. Procedure Notes None recorded. Medical Equipment None Reported. Allergies Allergen ID Allergen Name Allergen Category Reaction Reaction Severity Criticality Documentation Date Start Date Code Code System Note Provider Name and Address Organization Details Recorded Time 6306 Bactrim medicatio n Not available Not available Not available 03/22/2018 95947 9 RxNorm Lary Smith[place] - [facility] 8 16:56:47 6307 codeine medicatio n Not available Not available Not available 03/22/2018 2670 RxNorm Lary [place] [facility] 8 16:56:47 6308 Product containin g 3-hydroxy -3-methyl glutaryl- coenzyme A reductase inhibitor (product) medicatio n other Not available Not available 03/22/2018 31018 009 SNOMED Lary [place]al[place] [facility] 8 16:56:47 6309 hydrochlo rothiazid e / lisinopri l medicatio n Not available Not available Not available 03/22/2018 43579 8 RxNorm Lary [place] [facility] 8 16:56:47 6310 duloxetin e medicatio n nausea Not available Not available 03/22/2018 56263 RxNorm Lary [place] [facility] 8 16:56:47 6311 Substance with sulfonami de structure and antibacte rial mechanism of action (substanc e) medicatio n Not available Not available Not available 03/22/2018 43289 8003 SNOMED Lary [place]al[place] [facility] 8 16:56:47 Medications Name Sig Start Date Stop Date Status Note LastModified by Organization Details LastModified Time accu-chek guide w/device kit active Not Available Not Available Not Available celecoxib 200 mg capsule 03/25 completed Not Available Not Available Not Available amoxicilli n 500 mg capsule active Not Available Not Available Not Available pioglitazo ne 15 mg tablet 03/25 completed Not Available Not Available Not Available fluconazol e 100 mg tablet 08/03 completed Not Available Not Available Not Available hydralazin e 10 mg tablet 12/29 completed Not Available Not Available Not Available venlafaxin e ER 75 mg capsule,ex tended release 24 hr 12/29 completed Not Available Not Available Not Available candesarta n 32 mg-hydroch lorothiazi de 12.5 mg tablet TAKE 1 TABLET BY MOUTH EVERY MORNING active Not Available Not Available No t Available gabapentin 600 mg tablet 03/25 completed Not Available Not Available Not Available doxycyclin e hyclate 100 mg capsule 08/03 completed Not Available Not Available Not Available paroxetine 10 mg tablet 03/25 completed Not Available Not Available Not Available clindamyci n HCl 300 mg capsule 03/25 completed Not Available Not Available Not Available trazodone 50 mg tablet active Not Available Not Available Not Available ketoconazo le 200 mg tablet 03/25 completed Not Available Not Available Not Available azithromyc in 250 mg tablet 12/29 completed Not Available Not Available Not Available fluconazol e 150 mg tablet 03/25 completed Not Available Not Available Not Available metoprolol succinate ER 50 mg tablet,ext ended release 24 hr TAKE 1 TABLET BY MOUTH EVERY DAY FOR HYPERTEN ROSALEE 12/29 completed Not Available Not Available Not Available bacitracin 500 unit/gram eye ointment 12/29 completed Not Available Not Available Not Available sucralfate 1 gram tablet 03/25 completed Not Available Not Available Not Available promethazi ne 12.5 mg tablet 03/25 completed Not Available Not Available Not Available ondansetro n HCl 4 mg tablet 03/25 completed Not Available Not Available Not Available clonazepam 0.5 mg tablet 03/25 completed Not Available Not Available Not Available metoprolol succinate ER 100 mg tablet,ext ended release 24 hr 1 tab, OD active Not Available Not Available No t Available venlafaxin e ER 150 mg capsule,ex tended release 24 hr TK 1 C PO QD active Not Available Not Available No t Available Accu-Chek Softclix Lancets active Not Available Not Available Not Available hydralazin e 25 mg tablet 12/29 completed Not Available Not Available Not Available amlodipine 2.5 mg tablet 12/29 completed Not Available Not Available Not Available potassium chloride ER 10 mEq tablet,ext ended release TK 1 T PO QD active Not Available Not Available No t Available clopidogre l 75 mg tablet TAKE 1 TABLET BY MOUTH DAILY 09/07 completed Not Available Not Available Not Available amlodipine 5 mg tablet 08/03 completed Not Available Not Available Not Available doxepin 10 mg capsule 03/25 completed Not Available Not Available Not Available ciprofloxa rita 500 mg tablet TK 1 T PO Q 12 H active pt no longer takes 021 nj Not Available Not Available Not Available tramadol 50 mg tablet 03/25 completed Not Available Not Available Not Available acetaminop hen 500 mg tablet Take 1 tablet as needed by oral route. active Not Available Not Available No t Available bupropion HCl SR 100 mg tablet,12 hr sustained- release TAKE 1 TABLET BY MOUTH TWICE DAILY 12/29 completed Not Available Not Available Not Available glimepirid e 2 mg tablet OD 11/28 completed pt no longer takes 021 nj Not Available Not Available Not Available glimepirid e 1 mg tablet TK 1 T PO QD 11/28 completed pt no longer takes 021 nj Not Available Not Available Not Available pantoprazo le 20 mg tablet,del ayed release TK 1 T PO QD UTD active pt no longer takes 021 nj Not Available Not Available Not Available levothyrox ine 75 mcg tablet TAKE 1 TABLET BY MOUTH EVERY DAY IN THE MORNING active Not Available Not Available No t Available meloxicam 7.5 mg tablet TAKE 1 TABLET BY MOUTH EVERY DAY IN THE MORNING NEEDED active Not Available Not Available No t Available bupropion HCl 100 mg tablet bid 03/25 completed Not Available Not Available Not Available levothyrox ine 88 mcg tablet active Not Available Not Available Not Available alprazolam 0.5 mg tablet TAKE 1 TABLET BY MOUTH THREE TIMES DAILY NEEDED active Not Available Not Available No t Available alprazolam 0.25 mg tablet 03/25 completed Not Available Not Available Not Available amitriptyl ine 25 mg tablet 1 Tab, OD 08/06 completed Not Available Not Available Not Available prednisolo ne acetate 1 % eye drops,susp ension 12/29 completed Not Available Not Available Not Available baclofen 10 mg tablet TAKE 1 TABLET BY MOUTH UP TO TWICE DAILY NEEDED FOR SPASMS active Not Available Not Available No t Available benzonatat e 100 mg capsule active pt no longer takes 021 nj Not Available Not Available Not Available cephalexin 500 mg capsule 03/25 completed Not Available Not Available Not Available paroxetine 20 mg tablet 03/25 completed Not Available Not Available Not Available oseltamivi r 75 mg capsule 12/29 completed Not Available Not Available Not Available metformin 1,000 mg tablet TK 1 T PO BID active Not Available Not Available No t Available tobramycin 0.3 % eye drops PRN active Not Available Not Available Not Available gabapentin 300 mg capsule Take 1 capsule( s) twice a day by oral route. 12/29 completed Not Available Not Available Not Available omeprazole 20 mg capsule,de layed release TAKE 1 CAPSULE BY MOUTH EVERY DAY DIRECTED active pt no longer takes 021 nj Not Available Not Available Not Available montelukas t 10 mg tablet TAKE 1 TABLET BY MOUTH EVERY DAY AT BEDTIME 11/28 completed Not Available Not Available Not Available hydralazin e 50 mg tablet 1 tab bid active Not Available Not Available No t Available mupirocin 2 % topical ointment APPLY A SMALL AMOUNT TO THE AFFECTED AREA BY TOPICAL ROUTE 3 TIMES PER DAY active Not Available Not Available No t Available furosemide 20 mg tablet TK 1 T PO QD active Not Available Not Available No t Available triamcinol one acetonide 0.1 % lotion APPLY TOPICALL Y TO THE AFFECTED AREA TWICE DAILY active Not Available Not Available No t Available ibuprofen 600 mg tablet 03/25 completed Not Available Not Available Not Available cefuroxime axetil 500 mg tablet 03/25 completed Not Available Not Available Not Available methylpred nisolone 4 mg tablets in a dose pack 03/25 completed Not Available Not Available Not Available losartan 50 mg-hydroch lorothiazi de 12.5 mg tablet QD 03/25 completed Not Available Not Available Not Available clotrimazo le 1 % topical cream 03/25 completed Not Available Not Available Not Available sertraline 50 mg tablet Take 1 tablet every day by oral route at bedtime. 03/25 completed Not Available Not Available Not Available amoxicilli n 875 mg-potassi um clavulanat e 125 mg tablet 03/25 completed Not Available Not Available Not Available Aspir-Earnestine 325 mg tablet,del ayed release Take every 24 hours by oral route. 11/28 completed pt no longer takes 021 nj Not Available Not Available Not Available oxycodone 5 mg tablet 03/25 completed Not Available Not Available Not Available neomycin-p olymyxin-h ydrocort 3.5 mg-10,000 unit/mL-1 % ear drops,susp ADMINIST ER 3 DROPS INTO EACH EAR THREE TIMES DAILY active pt no longer takes 021 nj Not Available Not Available Not Available ezetimibe 10 mg tablet TAKE 1 TABLET BY MOUTH EVERY DAY active Not Available Not Available No t Available cyclobenza josie 5 mg tablet 03/25 completed Not Available Not Available Not Available olmesartan 40 mg-hydroch lorothiazi de 12.5 mg tablet 08/03 completed Not Available Not Available Not Available cholestyra mine (with sugar) 4 gram oral powder active Not Available Not Available Not Available duloxetine 30 mg capsule,de layed release 03/25 completed Not Available Not Available Not Available duloxetine 60 mg capsule,de layed release 03/25 completed Not Available Not Available Not Available omega-3 acid ethyl esters 1 gram capsule Take 2 capsules twice a day by oral route. 11/28 completed pt no longer takes 021 nj Not Available Not Available Not Available Boostrix Tdap 2.5 Lf unit-8 mcg-5 Lf/0.5 mL intramuscu lar suspension 12/29 completed Not Available Not Available Not Available metformin ER 1,000 mg tablet,ext ended release 24 hr Take 1 tablet twice a day by oral route. 12/29 completed Not Available Not Available Not Available Lyrica 75 mg capsule 03/25 completed Not Available Not Available Not Available Lyrica 150 mg capsule Take 1 capsule twice a day by oral route, PRN 08/06 completed Not Available Not Available Not Available losartan 100 mg-hydroch lorothiazi de 12.5 mg tablet Take every 24 hours by oral route. 08/06 completed Not Available Not Available Not Available Zostavax (PF) 19,400 unit/0.65 mL subcutaneo us suspension 03/25 completed Not Available Not Available Not Available Janumet 50 mg-1,000 mg tablet 11/28 completed pt no longer takes 021 nj Not Available Not Available Not Available Twinrix (PF) 720 ORI unit-20 mcg/mL intramuscu lar syringe 03/25 completed Not Available Not Available Not Available Twinrix (PF) 720 ORI unit-20 mcg/mL intramuscu lar suspension 03/25 completed Not Available Not Available Not Available zinc oxide 40 % topical ointment APPLY EXTERNAL LY TO THE AFFECTED AREA EVERY DAY 12/29 completed Not Available Not Available Not Available Nucynta 50 mg tablet 03/25 completed Not Available Not Available Not Available Onglyza 5 mg tablet 03/25 completed Not Available Not Available Not Available Dexilant 60 mg capsule, delayed release 03/25 completed Not Available Not Available Not Available Nesina 25 mg tablet 03/25 completed Not Available Not Available Not Available Farxiga 5 mg tablet 08/03 completed Not Available Not Available Not Available Jardiance 10 mg tablet 12/29 completed Not Available Not Available Not Available Repatha SureClick 140 mg/mL subcutaneo us pen injector Inject 1 mL every 2 weeks by subcutan eous route. active Not Available Not Available No t Available Repatha Syringe [id number] 03/25 completed Not Available Not Available Not Available fluticason e prop.50 mcg spray,susp en-sod.chl oride 0.9% nasal spray kit Take by nasal route as needed. active Not Available Not Available No t Available Accu-Chek Guide test strips TAKE 1 TABLET BY MOUTH THREE TIMES DAILY active Not Available Not Available No t Available Shingrix (PF) 50 mcg/0.5 mL intramuscu lar suspension , kit 12/29 completed Not Available Not Available Not Available COVID-19 test specimen collection TEST DIRECTED TODAY active Not Available Not Available No t Available Vitals Date Recorded Body height Body mass index (BMI) Body weight Heart rate Oxygen saturation Oxygen saturation in Arterial blood by Pulse oximetry Systolic And Diastolic Provider Name and Address Organization Details Last Updated DateTime 2 160.02 cm 28.2 kg/m2 82549.1 9 g 68 /min 98 % 98 % 174/86 mm[Hg] Kristan [place] - [facility] 2 12:32:45 Date Recorded Body height Body mass index (BMI) Body weight Oxygen saturation Oxygen saturation in Arterial blood by Pulse oximetry Heart rate Systolic And Diastolic Provider Name and Address Organization Details Last Updated DateTime 9 160.02 cm 29.1 kg/m2 35050.1 5 g 97 % 97 % 77 /min 140/86 mm[Hg] ALE VALENTE [facility] 9 09:43:42 Date Recorded Body height Heart rate Oxygen saturation Oxygen saturation in Arterial blood by Pulse oximetry Body mass index (BMI) Body weight Systolic And Diastolic Provider Name and Address Organization Details Last Updated DateTime 9 160.02 cm 90 /min 95 % 95 % 29 kg/m2 69967.7 9 g 138/72 mm[Hg] ASTER Lux [facility] 9 14:38:18 Date Recorded Body height Body mass index (BMI) Body weight Heart rate Oxygen saturation Oxygen saturation in Arterial blood by Pulse oximetry Systolic And Diastolic Provider Name and Address Organization Details Last Updated DateTime 9 160.02 cm 29.2 kg/m2 61599.7 4 g 72 /min 96 % 96 % 120/70 mm[Hg] Everett Cortes [facility] 9 14:34:55 Date Recorded Body weight Oxygen saturation Oxygen saturation in Arterial blood by Pulse oximetry Heart rate Systolic And Diastolic Provider Name and Address Organization Details Last Updated DateTime 1 65073.5 1 g 97 % 97 % 67 /min 152/82 mm[Hg] MIMI KAY [facility] 1 12:31:26 Social History Question Answer Notes LastModified by Organizat ion Details LastModified Time Tobacco Smoking Status Never Smoker Not Available [facility] 08/22/2020 03:30:19 What Is Your Level Of Caffeine Consumption? Moderate [id number] Information not available 08/22/2020 Marital Status [email or web address] Informatio n not available 03/22/2018 What Was The Date Of Your Most Recent Tobacco Screening? 02/02/2019 [id number] Information not available 08/22/2020 How Many Years Have You Smoked Tobacco? 0 [id number] Information not available 08/22/2020 Sex: Unknown Functional Status None recorded. Mental Status None recorded. Family History Relationship Description Onset Age of this Age Resolved Age Notes LastModified by Organization Details LastModified Time Father Father 80's with colon Cancer , had apical aneury sm. hmesto Not available 05/20/2016 05:15:50 Mother Family history of Mother alive with problem colon resect ion [email or web address] Not available 05/20/2016 05:16:07 Medical History Condition Response Diabetes Y Hyperlipidemia Y Atrial Fibrillation Y Thyroid Disease Y Hypertension Y Depression Y Gynecological HistoryNo gynecological history recorded. Obstetrics History GPAL:G 0 P 0 0 0 0 Immunizations Vaccine Type Date Status Note Provider Nam e and Address Organization Details Recorded Time Td(adult) unspecified formulation 6 completed Barth Mesto null, [facility] 03/22/2018 16:58:50 Pneumococcal conjugate PCV 13 6 completed Barth Mesto null, [facility] 03/22/2018 16:58:50 Hep A, adult 7 completed Barth Mesto null, [facility] 03/22/2018 16:58:50 Hep A, adult 7 completed Barth [place] [facility] 03/22/2018 16:58:50 pneumococcal polysaccharide PPV23 7 completed Barth M[facility], [facility] 03/22/2018 16:58:50 Influenza, split virus, quadrivalent, preservative 5 completed Barth [place] [facility] 03/22/2018 16:58:50 zoster live 6 completed Barth Mesto null, [facility] 03/22/2018 16:58:50 Influenza, split virus, trivalent, preservative 6 completed Barth [place] [facility] 03/22/2018 16:58:50 Past Encounters Encounter ID Performer Location Encounter Start Date Encounter Closed Date Diagnosis/Indication Diagnosis SNOMED-CT Code Diagnosis ICD10 Code Diagnosis IMO Codes Diagnosis Note [id number] Zackery Del Castillo MD [facility] [address] [place] [address] 05/21/2016 13:58:23 05/21/2016 18:25:12 Benign hypertension [id number] I10 Patient's blood pressure is well-contr olled on present medical therapy. Patient is tolerating , without difficulty , the current medication s. I have not made changes to the current regimen. Patient was advised to eat a low-sodium diet (2 grams sodium or less daily). BP diary. Hyperlipidemia 91175005 E78.5 Good control. Continue Repatha. Pre-surger y evaluation [id number] Z01.818 Patient presents with progressiv e exertional dyspnea and fatigue with atypical features. Given the history, exam findings and high cardiac risk factors, I feel additional investigat ion is warranted. I have made arrangemen ts in the near future for a pharmacolo gic stress nuclear test due to reduced functional capacity or conduction abnormalit y. The procedure was discussed with the patient, and risks, benefits, and alternativ e options were explained. I have asked the patient to curtail exercise and activities until our investigat ion is complete. Studies that were recommende d for evaluation include: an echocardio gram to evaluate left ventricula r function and any structural heart disease or valvular abnormalit y, with follow-up for abnormal studies as directed. Obstructiv e sleep apnea syndrome [id number] G47.33 Pt had sleep study positive for THOMAS. Unable to tolerate CPAP or any face mask. Dental appliance attempted but could not be fitted. Dental appliance through another provider recommende d. Follow-up mild pulm. HTN on repeat echo. [id number] Zackery Del Castillo MD [facility] [address] [place] [address] 03/25/2018 15:33:21 03/27/2018 11:07:30 Benign hypertension [id number] I10 Patient's blood pressure is well-contr olled on present medical therapy. Patient is tolerating , without difficulty , the current medication s. I have not made changes to the current regimen. Patient is advised to maintain a blood pressure diary. Patient was advised to eat a low-sodium diet (2 grams sodium or less daily). BP diary. Hyperlipidemia 34040196 E78.5 Needs to keep LDL less than 70, and HDL more than 40 Will give FLP before next visit. Was on Repatha, due to statin intoleranc e from elevated LFTs, has been off for 1 year, was on Zetia but no longer taking due to feeling of confusion. Consider Repatha assistance program pending LDL. Obstructiv e sleep apnea syndrome 63696708 G47.33 Pt had sleep study positive for THOMAS. Unable to tolerate CPAP or any face mask. Dental appliance attempted but could not be fitted. Dental appliance through another provider recommende d. Follow-up mild pulm. HTN on repeat echo. Atrial fibrillation 4943 6004 I48.91 In NSR today. On Full Dose ASA. Palpitations 21029967 R0 0.2 Resolved. Diabetes mellitus 150224 09 E11.9 Discussed importance of tight glycemic control to minimize cardiovasc ular disease progressio n. Dyspnea on exertion 6084 5006 R06.09 Patient presents with exertional dyspnea which can be an anginal equivalent . Given the history, exam findings and high cardiac risk factors, I feel additional investigat ion is warranted. I have made arrangemen ts in the near future for an exercise stress nuclear test and an echocardio gram to evaluate for any ischemia or structural heart disease. The procedure was discussed with the patient, and risks, benefits, and alternativ e options were explained. Appropriat e labwork has not been performed recently, therefore I have made arrangemen ts for further testing: FLP. I have asked the patient to curtail exercise and activities until our investigat ion is complete. I have made no adjustment s to the present medical regimen. Transient ischemia 96933 009 I99.8 No recurrence . Continue ASA. Possible TIA 12/2017. Obtain echo to evaluate for structural /functiona l disease if not done at [facility]. Obtain carotid U/S if not done per PCP at [facility]. [id number] Zackery Del Castillo MD [facility] [address] [place] [address] 04/29/2018 10:52:39 05/01/2018 11:00:43 Benign hypertension [id number] I10 Patient's blood pressure is not well-contr olled on present medical therapy. Patient is tolerating , without difficulty , the current medication s. I have not made changes to the current regimen. Patient is advised to maintain a blood pressure diary. Patient was advised to eat a low-sodium diet (2 grams sodium or less daily). BP diary. Patient did not take BP med this AM. BP monitor -large. Hyperlipidemia 07203817 E78.5 Needs to keep LDL less than 70, and HDL more than 40 Will give FLP before next visit. Was on Repatha, due to statin intoleranc e from elevated LFTs, has been off for 1 year, was on Zetia but no longer taking due to feeling of confusion. Had LDL 04/09/18: LDL 146, TG 337. Continue fish oil as per retina specialist . Needs Repatha assistance program. Resume Repatha. Obstructiv e sleep apnea syndrome 27570101 G47.33 Pt had sleep study positive for THOMAS. Unable to tolerate CPAP or any face mask. Dental appliance attempted through [facility] but could not be fitted. Dental appliance through another provider recommende d, pending neck PT completed per patient preference . Atrial fibrillation 4943 6004 I48.91 In NSR today. Fell 2017 [address] on curb with dropped foot . In December fell 6 times and was hospitaliz ed twice. Fell again 04/27/18 when getting out of car. Walks with cane and walker. On Full Dose ASA. DIscussed with patient CHADS2-VAS c score of 6 with 9.7% stroke risk, but given frequent falls continue ASA 325 mg qd. COntinue metoprolol . Had normal TSH 3.25 04/09/18. Palpitations 62265342 R0 0.2 Resolved. Diabetes mellitus 834159 09 E11.9 Discussed importance of tight glycemic control to minimize cardiovasc ular disease progressio n. Dyspnea on exertion 6084 5006 R06.09 Stable. Had Lexiscan 04/20/18: negative for ischemia, LVEF 57%. Transient ischemia 90069 009 I99.8 Reports 15 min of slurred speech 04/27/2018. No recurrence . Continue ASA. Possible TIA 12/2017 with slurred speech and blurred vision. Had 04/28/18 ECHO: Study quality: Technicall y difficult. LV chamber size is normal. There is mild concentric LV hypertroph y. There is normal global systolic function and contractil ity. The estimated left ventricle ejection fraction is 60-65%(nor mal).[place] left atrial pressure with grade I diastolic dysfunctio n. Compared with echo 06/20/2016 , mild LVH is new. Obtain carotid U/S results 01/2018 per PCP at [facility]. Consider Plavix pending carotid U/S results. Needs neuro f/u. [id number] Adonay Ying MD [facility] [address] [place] [address] 12/29/2018 09:32:20 12/29/2018 10:41:44 Benign hypertension 51392599 I10 Slighty elevated today. Will monitor for now. BP diary. Hyperlipidemia 00383683 E78.5 Needs to keep LDL less than 70, and HDL more than 40 12/24/18 LDL 134. On Fish oil and Zetia. Was on Repatha, due to statin intoleranc e from elevated LFTs, has been off for 1 year, was on Zetia but no longer taking due to feeling of confusion. Needs Repatha assistance program. Resume Repatha. Obstructiv e sleep apnea syndrome 71836406 G47.33 Pt had sleep study positive for THOMAS. Unable to tolerate CPAP or any face mask. Dental appliance attempted through [facility] but could not be fitted. Dental appliance through another provider recommende d, pending neck PT completed per patient preference . 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 Remains in NSR today. Fell 2017 [address] tripped on curb with dropped foot . In December fell 6 times and was hospitaliz ed twice. Fell again 04/27/18 when getting out of car. Walks with cane and walker. On Full Dose ASA. DIscussed with patient CHADS2-VAS c score of 6 with 9.7% stroke risk, but given frequent falls continue ASA 325 mg qd. Continue metoprolol . Had normal TSH 3.25 04/09/18. Palpitations 14089177 R0 0.2 Resolved. Diabetes mellitus 419230 09 E11.9 Treatment and evaluation by primary care doctor. Discussed importance of adequate glycemic control to minimize cardiovasc ular disease progressio n. A1C goal of < 7% for type 2 DM Dyspnea on exertion 6084 5006 R06.09 Stable.Had Lexiscan 04/20/18: negative for ischemia, LVEF 57% Transient ischemia 18574 009 I99.8 Reports 15 min of slurred speech 04/27/2018. No recurrence but with dysphagia. On Plavix and 325 ASA due to her hx of PAF. . Continue ASA. Possible TIA 12/2017 with slurred speech and blurred vision. Had 04/28/18 ECHO: Study quality: Technicall y difficult. LV chamber size is normal. There is mild concentric LV hypertroph y. There is normal global systolic function and contractil ity. The estimated left ventricle ejection fraction is 60-65%(nor mal).[place] left atrial pressure with grade I diastolic dysfunctio n. Compared with echo 06/20/2016 , mild LVH is new. 01/14/18 US CAROTID: Mild to moderate atheroscle rosis in left greater than right carotid arteries. By the grayscale images and the peak systolic velocities , the findings are compatible with 16-49% stenosis in the left ICA and 0-15% stenosis in the right ICA. 01/14/18 MRI BRAIN: No mass ,mass effect, intracrani al hemorrhage , or evidence of acute ischemia. Mild global cerebral and cerebellar atrophy. Atypical chest pain 1025 06827 R07.89 Will arrange for cardiac CTA, he has high Pacolet Risk score. he would benefit from CT to look for any Coronary Artery Disease [id number] Adonay Ying MD [facility] [address] [place] [address] 02/02/2019 14:00:26 02/05/2019 21:41:09 Atypical chest pain 176299013 R07.89 Mild Coronary Artery Disease on CTA Transient ischemia 92532 009 I99.8 Reports 15 min of slurred speech 04/27/2018. No recurrence but with dysphagia. On Plavix and 325 ASA due to her hx of PAF. . Continue ASA. Possible TIA 12/2017 with slurred speech and blurred vision. Had 04/28/18 ECHO: Study quality: Technicall y difficult. LV chamber size is normal. There is mild concentric LV hypertroph y. There is normal global systolic function and contractil ity. The estimated left ventricle ejection fraction is 60-65%(nor mal).[place] left atrial pressure with grade I diastolic dysfunctio n. Compared with echo 06/20/2016 , mild LVH is new. 01/14/18 US CAROTID: Mild to moderate atheroscle rosis in left greater than right carotid arteries. By the grayscale images and the peak systolic velocities , the findings are compatible with 16-49% stenosis in the left ICA and 0-15% stenosis in the right ICA. 03/28/18 MRI BRAIN: No mass ,mass effect, intracrani al hemorrhage , or evidence of acute ischemia. Mild global cerebral and cerebellar atrophy. Benign hypertension 1072 5009 I10 Slighty elevated today. Will monitor for now. BP diary. Dyspnea on exertion 6084 5006 R06.09 Stable.Had Lexiscan 04/20/18: negative for ischemia, LVEF 57% Hyperlipidemia 48856257 E78.5 Needs to keep LDL less than 70, and HDL more than 40 12/24/18 LDL 134. On Fish oil and Zetia. Was on Repatha, due to statin intoleranc e from elevated LFTs, has been off for 1 year, was on Zetia but no longer taking due to feeling of confusion. Needs Repatha assistance program. Resume Repatha. 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 Remains in NSR today. Fell 2017 [address] tripped on curb with dropped foot . In December fell 6 times and was hospitaliz ed twice. Fell again 04/27/18 when getting out of car. Walks with cane and walker. On Full Dose ASA. DIscussed with patient CHADS2-VAS c score of 6 with 9.7% stroke risk, but given frequent falls continue ASA 325 mg qd. Continue metoprolol . Had normal TSH 3.25 04/09/18. Obstructiv e sleep apnea syndrome 48297300 G47.33 Pt had sleep study positive for THOMAS. Unable to tolerate CPAP or any face mask. Dental appliance attempted through [facility] but could not be fitted. Dental appliance through another provider recommende d, pending neck PT completed per patient preference . Palpitations 48541630 R0 0.2 Resolved. Diabetes mellitus 380393 09 E11.9 Treatment and evaluation by primary care doctor. Discussed importance of adequate glycemic control to minimize cardiovasc ular disease progressio n. A1C goal of < 7% for type 2 DM [id number] Adonay Ying MD [facility] [address] [place] [address] 08/03/2019 13:52:14 10/02/2019 19:38:11 Atypical chest pain 550263782 R07.89 She had 3 episodes of chest pain/short ness of breath with mixed typical/at ypical features (exertiona l but also pleuritic gets worse with deep breath). She had negative Sonali last year and more recently CTA with Mild Coronary Artery Disease.He r O2 sat is normal including ambulatory saturation .Will check holter to see if symptoms related to A fib (h/o A fib in 2014)Consi solo further work up if pain persists. Transient ischemia 85653 009 I99.8 Reports 15 min of slurred speech 04/27/2018. No recurrence but with dysphagia. On Plavix and 325 ASA due to her hx of PAF. . Continue ASA. Possible TIA 12/2017 with slurred speech and blurred vision. Had 04/28/18 ECHO: Study quality: Technicall y difficult. LV chamber size is normal. There is mild concentric LV hypertroph y. There is normal global systolic function and contractil ity. The estimated left ventricle ejection fraction is 60-65%(nor mal).[place] left atrial pressure with grade I diastolic dysfunctio n. Compared with echo 06/20/2016 , mild LVH is new. 01/14/18 US CAROTID: Mild to moderate atheroscle rosis in left greater than right carotid arteries. By the grayscale images and the peak systolic velocities , the findings are compatible with 16-49% stenosis in the left ICA and 0-15% stenosis in the right ICA. 01/14/18 MRI BRAIN: No mass ,mass effect, intracrani al hemorrhage , or evidence of acute ischemia. Mild global cerebral and cerebellar atrophy. Benign hypertension 1072 5009 I10 Well controlled . Dyspnea on exertion 6084 5006 R06.09 Stable.Had Lexiscan 04/20/18: negative for ischemia, LVEF 57% Hyperlipidemia 83747360 E78.5 Needs to keep LDL less than 70, and HDL more than 40 06/09/19: TC 168 ,TG 252 ,HDL 61,LDL 57. She has statin intoleranc e with elevated LFTs.Morgan nue Repatha. 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 Remains in NSR today. Fell 2017 [address] with dropped foot . In December fell 6 times and was hospitaliz ed twice. Fell again 04/27/18 when getting out of car. Walks with cane and walker. Last fall was 04/2019. On Full Dose ASA. DIscussed with patient CHADS2-VAS c score of 6 with 9.7% stroke risk, but given frequent falls continue ASA 325 mg qd. Continue metoprolol . Had normal TSH 3.25 04/09/18. Obstructiv e sleep apnea syndrome 69220590 G47.33 Pt had sleep study positive for THOMAS. Unable to tolerate CPAP or any face mask. Dental appliance attempted through [facility] but could not be fitted. Dental appliance through another provider recommende d, pending neck PT completed per patient preference . Palpitations 66655938 R0 0.2 Resolved. Diabetes mellitus 620815 09 E11.9 Treatment and evaluation by primary care doctor. Discussed importance of adequate glycemic control to minimize cardiovasc ular disease progressio n. 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 Remains in NSR today. On Full Dose ASA. Continue metoprolol . Had normal TSH 3.25 04/09/18. Benign hypertension 1072 5009 I10 Well controlled . Dyspnea on exertion 6084 5006 R06.09 Stable.Had Lexiscan 04/20/18: negative for ischemia, LVEF 57%Obtain echo to evaluate for structural /functiona l disease. Hyperlipidemia 27434156 E78.5 Needs to keep LDL less than 70, and HDL more than 40 06/09/19: TC 168 ,TG 252 ,HDL 61,LDL 57. She has statin intoleranc e with elevated LFTs.Morgan nue Repatha. Transient ischemia 82812 009 I99.8 325 ASA due to her hx of PAF. . Obstructiv e sleep apnea syndrome 26273972 G47.33 Pt had sleep study positive for THOMAS. Unable to tolerate CPAP or any face mask. Dental appliance attempted through [facility] but could not be fitted. Dental appliance through another provider recommende d, pending neck PT completed per patient preference . Palpitations 81343483 R0 0.2 Better now Diabetes mellitus 527565 09 E11.9 Treatment and evaluation by primary care doctor. Discussed importance of adequate glycemic control to minimize cardiovasc ular disease progressio n. A1C goal of < 7% for type 2 DM [id number] MD [facility] [address] [place] [address] 11/28/2021 12:05:22 11/28/2021 17:22:39 Benign hypertension 40292283 I10 Patient's blood pressure is well-contr olled on present medical therapy. Patient is tolerating , without difficulty , the current medication s. I have not made changes to the current regimen. Patient is advised to maintain a blood pressure diary. Cont low Na diet. Diabetes mellitus 465096 09 E11.9 Treatment and evaluation by primary care doctor. Discussed importance of adequate glycemic control to minimize cardiovasc ular disease progressio n. A1C goal of < 7% for type 2 DM Hyperlipidemia 18862582 E78.5 Palpitations 53794661 R0 0.2 resolved Edema 063085405 R60.9 pt with anasarca which is mild. Could be due to kidney dysfunctio n.Last ECHO showed normal LV systolic function and diastolic dysfunctio n.Advised to go to ER for evaluation but does not want to go due to financial issues. Advised to contact her PC.Labs ordered including BMP. CBC and urinalysis Health Concerns Section Related Observation LastModified by Organization Detai ls LastModified Time None Recorded Concern Status LastModified by Organization Details LastModified Time None Recorded Advance Directives Directive None Recorded Payers Insurance Date Sequence Insurance Name Policy Number Policy Hqaue Covered Member ID Haque Member ID Guarantor Name 09/07/2021 1 [place] Rosario Walton [id number] 11/28/2021 1 [facility] (MEDICARE REPLACEMENT/A DVANTAGE - HMO) [id number] Rosario Walton [id number] 07/28/2019 3 [place] Rosario Walton [id number] 11/28/2021 1 [facility] (MEDICARE REPLACEMENT/A DVANTAGE - O) [id number] Rosario Walton [id number] 07/28/2019 1 [place] Rosario Walton [id number] 09/07/[address] [place] [address] (MEDICARE SUPPLEMENT) PLAN G Rosario Walton [id number] Notes Date Note Type Note Provider Name and Address Organization Details Recorded Time 12/29/2018 text/html 12/29/17 CC : chest pain 68 year-old white woman with a PMH of paroxysmal atrial fibrillation, hyperlipidemia, hypertension, diabetes mellitus, hypothyroidism, depression presents today for follow-up. She was here last 8 months ago. Since then she has been doing fairly well. She is not very active and does not exercise regularly. Recently, she reports troubles swalling with chocking with pills and food. She was sent to Dr. Oquendo and she underwent an EGD on . She had some polyps removed and some tissues in her stomach with biopsy that was negative for malignancy. She reports intermittent dizziness and feeling off-balance when walking. She walks with a walker since her three spinal surgeries since 10/2017, s/p fall 10/17/2017. She had chest pain, No neck pain. No nausea and vomiting. No diaphoresis. No shortness of breath at rest. Dyspnea on exertion reported, stable. No fatigue.No orthopnea. No PND. Leg swelling reported. No palpitation. Dizziness reported. Unable to walk straight line since back surgeries. No syncope . No pre-syncope. No claudication. No major bleeding events. No side effects from medications. She reports being on statin medications in the past which elevated her liver enzymes previously due to history of CODY. She follows up with GI doctor. She has been on Repatha for the past year but now her insurance will not cover it. Her last Repatha injection was 1 year ago. She was on Zetia during the past year, but stopped taking the medication because it made her head foggy and seemed to be more forgetful and confused. Had Lexiscan 04/20/18: negative for ischemia, LVEF 57%. Had 04/28/18 ECHO: Study quality: Technically difficult. LV chamber size is normal. There is mild concentric LV hypertrophy. There is normal global systolic function and contractility. The estimated left ventricle ejection fraction is 60-65%(normal).Normal left atrial pressure with grade I diastolic dysfunction. Compared with echo 06/20/2016, mild LVH is new. Previously, she had 15 min of slurred speech 04/27/2018. No recurrence. Had 8 hours of slurred speech and blurred vision 12/2017, evaluated at [facility], with head CT negative for infarct per pt report. No recurrence. Results from this visit, or from the past: 12/24/18: Na 140 ,K 4.1, CL 101 ,CO2 33 , GLU 96, BUN 8 , CR 0.55, AST 21 ,ALT 24 12/24/18: TC 221 ,TG 182, HDL 55,LDL 134, EKG, 12/29/18: Incomplete R BBB. Low voltage in chest leads. Poor R progression in chest leads. shayne Ying MD [address] [place], [address], [facility] 12/29/2018 10:41:41 02/02/2019 text/html CC : chest pain 68 year-old white woman with a PMH of paroxysmal atrial fibrillation, hyperlipidemia, hypertension, diabetes mellitus, hypothyroidism, depression presents today for follow-up. She was here last 6 months ago. Since then she has been doing fairly well. She is not very active and does not exercise regularly. She had CCTA with mild Coronary Artery Disease Recently, she reports troubles swalling with chocking with pills and food. She was sent to Dr. Oquendo and she underwent an EGD on . She had some polyps removed and some tissues in her stomach with biopsy that was negative for malignancy. She reports intermittent dizziness and feeling off-balance when walking. She walks with a walker since her three spinal surgeries since 10/2017, s/p fall 10/17/2017. She had chest pain, No neck pain. No nausea and vomiting. No diaphoresis. No shortness of breath at rest. Dyspnea on exertion reported, stable. No fatigue.No orthopnea. No PND. Leg swelling reported. No palpitation. Dizziness reported. Unable to walk straight line since back surgeries. No syncope . No pre-syncope. No claudication. No major bleeding events. No side effects from medications. She reports being on statin medications in the past which elevated her liver enzymes previously due to history of CODY. She follows up with GI doctor. She has been on Repatha for the past year but now her insurance will not cover it. Her last Repatha injection was 1 year ago. She was on Zetia during the past year, but stopped taking the medication because it made her head foggy and seemed to be more forgetful and confused. Had Lexiscan 04/20/18: negative for ischemia, LVEF 57%. Had 04/28/18 ECHO: Study quality: Technically difficult. LV chamber size is normal. There is mild concentric LV hypertrophy. There is normal global systolic function and contractility. The estimated left ventricle ejection fraction is 60-65%(normal).Normal left atrial pressure with grade I diastolic dysfunction. Compared with echo 06/20/2016, mild LVH is new. Previously, she had 15 min of slurred speech 04/27/2018. No recurrence. Had 8 hours of slurred speech and blurred vision 12/2017, evaluated at [facility], with head CT negative for infarct per pt report. No recurrence. 02/02/19 *Had Cardiac CTA done in 01/18/19 showed Mild coronary artery disease . Results from this visit, or from the past: 12/24/18: Na 140 ,K 4.1, CL 101 ,CO2 33 , GLU 96, BUN 8 , CR 0.55, AST 21 ,ALT 24 12/24/18: TC 221 ,TG 182, HDL 55,LDL 134, EKG 02/02/19 : Incomplete R BBB. Low voltage in chest leads. Poor R progression in chest leads. EKG, 12/29/18: Incomplete R BBB. Low voltage in chest leads. Poor R progression in chest leads. [facility] Lexiscan Stress Test 06/20/16 : Negative Lexiscan stress test for ischemia. Normal LV systolic function. Abnormal stress test. Artifact noted. No previous study to compare. LVEF >60%. 04/28/18 ECHO: Study quality: Technically difficult. LV chamber size is normal. There is mild concentric LV hypertrophy. There is normal global systolic function and contractility. The estimated left ventricle ejection fraction is 60-65%(normal).Normal left atrial pressure with grade I diastolic dysfunction. Compared with echo 06/20/2016, mild LVH is new. 01/14/18 US CAROTID: Mild to moderate atherosclerosis in left greater than right carotid arteries. By the grayscale images and the peak systolic velocities, the findings are compatible with 16-49% stenosis in the left ICA and 0-15% stenosis in the right ICA. 01/18/19 CTA chest: Mild coronary artery disease. 01/14/18 MRI BRAIN: No mass ,mass effect, intracranial hemorrhage, or evidence of acute ischemia. Mild global cerebral and cerebellar atrophy. (MYLES) ankle brachial index 04-29-2016 Normal ankle- brachial index. No significant lower extremity peripheral arterial disease detected. Adonay Ying MD [address] [place], [address], [facility] 02/05/2019 21:41:07 08/03/2019 text/html 08/03/19CC : chest pain 68 year-old white woman with a PMH of paroxysmal atrial fibrillation, hyperlipidemia, hypertension, diabetes mellitus, hypothyroidism, mild CAD (01/2019), depression presents today for follow-up. She was here last 6 months ago. Up 1 lb. Since then she has been doing fairly well. She is not very active and does not exercise regularly. She reports having 4 days of chest discomfort last week, radiated to left shoulder blade; episodes lasted 5 minutes, occurred every time she stood to walk. No palpitations, dizziness or near-syncope. She wonders if these symptoms are related to her AFIB. Reports occasional right foot swelling resolved with one dose of Lasix she takes PRN. Heading to [place] for the next 2 months. She reports intermittent dizziness and feeling off-balance when walking. She walks with a walker since her three spinal surgeries since 10/2017, s/p fall 10/17/2017. No nausea and vomiting. No diaphoresis. No shortness of breath at rest. Dyspnea on exertion reported, stable. No fatigue.No orthopnea. No PND. Leg swelling reported. No palpitation. Dizziness reported. Unable to walk straight line since back surgeries. No syncope . No pre-syncope. No claudication. No major bleeding events. No side effects from medications. She reports being on statin medications in the past which elevated her liver enzymes previously due to history of CODY. She follows up with GI doctor. She has been on Repatha for the past year but now her insurance will not cover it. Her last Repatha injection was 1 year ago. She was on Zetia during the past year, but stopped taking the medication because it made her head foggy and seemed to be more forgetful and confused. Had Lexiscan 04/20/18: negative for ischemia, LVEF 57%. Had 04/28/18 ECHO: Study quality: Technically difficult. LV chamber size is normal. There is mild concentric LV hypertrophy. There is normal global systolic function and contractility. The estimated left ventricle ejection fraction is 60-65%(normal).Normal left atrial pressure with grade I diastolic dysfunction. Compared with echo 06/20/2016, mild LVH is new. Previously, she had 15 min of slurred speech 04/27/2018. No recurrence. Had 8 hours of slurred speech and blurred vision 12/2017, evaluated at [facility], with head CT negative for infarct per pt report. No recurrence. 02/02/19 *Had Cardiac CTA done in 01/18/19 showed Mild coronary artery disease . Results from this visit, or from the past: hemoglobin A1c, QN, blood 07-26-2019 07/26/19 : A1c 7.7 lipid panel, blood 06-09-2019 06/09/19: TC 168 ,TG 252 ,HDL 61,LDL 57, CMP, serum or plasma 12-24-2018 12/24/18: Na 140 ,K 4.1, CL 101 ,CO2 33 , GLU 96, BUN 8 , CR 0.55, AST 21 ,ALT 24 12/24/18: Na 140 ,K 4.1, CL 101 ,CO2 33 , GLU 96, BUN 8 , CR 0.55, AST 21 ,ALT 24 12/24/18: TC 221 ,TG 182, HDL 55,LDL 134, EKG, 08/03/19: INC, R BBB; Poor R progression in chest leads. mu EKG 02/02/19 : Incomplete R BBB. Low voltage in chest leads. Poor R progression in chest leads. EKG, 12/29/18: Incomplete R BBB. Low voltage in chest leads. Poor R progression in chest leads. [facility] Lexiscan Stress Test 06/20/16 : Negative Lexiscan stress test for ischemia. Normal LV systolic function. Abnormal stress test. Artifact noted. No previous study to compare. LVEF >60%. 04/28/18 ECHO: Study quality: Technically difficult. LV chamber size is normal. There is mild concentric LV hypertrophy. There is normal global systolic function and contractility. The estimated left ventricle ejection fraction is 60-65%(normal).Normal left atrial pressure with grade I diastolic dysfunction. Compared with echo 06/20/2016, mild LVH is new. 01/14/18 US CAROTID: Mild to moderate atherosclerosis in left greater than right carotid arteries. By the grayscale images and the peak systolic velocities, the findings are compatible with 16-49% stenosis in the left ICA and 0-15% stenosis in the right ICA. 01/18/19 CTA chest: Mild coronary artery disease. 01/14/18 MRI BRAIN: No mass ,mass effect, intracranial hemorrhage, or evidence of acute ischemia. Mild global cerebral and cerebellar atrophy. (MYLES) ankle brachial index 04-29-2016 Normal ankle- brachial index. No significant lower extremity peripheral arterial disease detected. Adonay Ying MD [address] [place], [address], [facility] 10/02/2019 19:38:09 09/07/2021 text/html 09/07/21CC : Cardiac follow up, [id number] year-old white woman with a PMH of paroxysmal atrial fibrillation, hyperlipidemia, hypertension, diabetes mellitus, hypothyroidism, mild CAD (01/2019), depression presents today for follow-up with carotid US to discuss the results. She was last seen in the clinic on 08/03/19 , since then she had few episodes of Palpitation Denies chest pain.Denies shortness of breath at rest. Has mild dyspnea on exertion.No orthopnea. No PNDs.Has some dizziness. Denies syncope or near syncope.No ankle or leg edema.No major bleeding events.No reported side effects from medications. Taking medications as prescribed with no missed doses.Denies snoring, daytime somnolence and AM headache.*Last LDL was 34 done on 12/06/19.Pt dose not takes any statins. LIPID 12/07/2019 TR 252 CH 138 HDL 54 LDL 34 *Had carotid UD done in 03/16/20 showed Antegrade flow noted in both vertebral arteries. Mild bilateral internal carotid artery stenosis with less than 50% diameter stenosis. She reports intermittent dizziness and feeling off-balance when walking. She walks with a walker since her three spinal surgeries since 10/2017, s/p fall 10/17/2017. *Had 04/28/18 ECHO: Study quality: Technically difficult. LV chamber size is normal. There is mild concentric LV hypertrophy. There is normal global systolic function and contractility. The estimated left ventricle ejection fraction is 60-65%(normal).Normal left atrial pressure with grade I diastolic dysfunction. Compared with echo 06/20/2016, mild LVH is new. Previously, she had 15 min of slurred speech 04/27/2018. No recurrence. *Had 8 hours of slurred speech and blurred vision 12/2017, evaluated at [facility], with head CT negative for infarct per pt report. No recurrence. *Had Cardiac CTA done in 01/18/19 showed Mild coronary artery disease . Results from this visit, or from the past: hemoglobin A1c, QN, blood 07-26-2019 07/26/19 : A1c 7.7 lipid panel, blood 06-09-2019 06/09/19: TC 168 ,TG 252 ,HDL 61,LDL 57, CMP, serum or plasma 12-24-2018 12/24/18: Na 140 ,K 4.1, CL 101 ,CO2 33 , GLU 96, BUN 8 , CR 0.55, AST 21 ,ALT 24 12/24/18: Na 140 ,K 4.1, CL 101 ,CO2 33 , GLU 96, BUN 8 , CR 0.55, AST 21 ,ALT 24 12/24/18: TC 221 ,TG 182, HDL 55,LDL 134, EKG, 08/03/19: INC, R BBB; Poor R progression in chest leads. mu EKG 02/02/19 : Incomplete R BBB. Low voltage in chest leads. Poor R progression in chest leads. EKG, 12/29/18: Incomplete R BBB. Low voltage in chest leads. Poor R progression in chest leads. [facility] Lexiscan Stress Test 06/20/16 : Negative Lexiscan stress test for ischemia. Normal LV systolic function. Abnormal stress test. Artifact noted. No previous study to compare. LVEF >60%. 04/28/18 ECHO: Study quality: Technically difficult. LV chamber size is normal. There is mild concentric LV hypertrophy. There is normal global systolic function and contractility. The estimated left ventricle ejection fraction is 60-65%(normal).Normal left atrial pressure with grade I diastolic dysfunction. Compared with echo 06/20/2016, mild LVH is new. 01/14/18 US CAROTID: Mild to moderate atherosclerosis in left greater than right carotid arteries. By the grayscale images and the peak systolic velocities, the findings are compatible with 16-49% stenosis in the left ICA and 0-15% stenosis in the right ICA. 01/18/19 CTA chest: Mild coronary artery disease. 01/14/18 MRI BRAIN: No mass ,mass effect, intracranial hemorrhage, or evidence of acute ischemia. Mild global cerebral and cerebellar atrophy. (MYLES) ankle brachial index 04-29-2016 Normal ankle- brachial index. No significant lower extremity peripheral arterial disease detected. Adonay Ying MD [address] [place], [address], [facility] 09/07/2021 13:05:47 11/28/2021 text/html 2CC : Cardiac follow up, Palpitation HPI: 71 year-old white woman with a PMH of paroxysmal atrial fibrillation, hyperlipidemia, hypertension, diabetes mellitus, hypothyroidism, mild CAD (01/2019), depression presents today for follow-upPt was seen last time by Dr. Ying about 3 months ago. Since then states that was admitted to hospital on [facility] due to dehydration. Has episodes of hurtin all over, has weakness, feels sleepy has for few weeks these symptoms gained significantly weight over last week and states that has cloudy urine. Call her PC who recommended her to be seen in our clinic. No CP, fever or chills. Does have SPENCER. Sometimes has swallowing problem. Has bad neuropathy. Denies chest pain.Denies shortness of breath at rest. Has mild dyspnea on exertion.No orthopnea. No PNDs.Has some dizziness. Denies syncope or near syncope.No ankle or leg edema.No major bleeding events.No reported side effects from medications. Taking medications as prescribed with no missed doses.Denies snoring, daytime somnolence and AM headache.*Last LDL was 34 done on 12/06/19.Pt dose not takes any statins. LIPID 12/07/2019 TR 252 CH 138 HDL 54 LDL 34 *Had carotid UD done in 03/16/20 showed Antegrade flow noted in both vertebral arteries. Mild bilateral internal carotid artery stenosis with less than 50% diameter stenosis. She reports intermittent dizziness and feeling off-balance when walking. She walks with a walker since her three spinal surgeries since 10/2017, s/p fall 10/17/2017. *Had 04/28/18 ECHO: Study quality: Technically difficult. LV chamber size is normal. There is mild concentric LV hypertrophy. There is normal global systolic function and contractility. The estimated left ventricle ejection fraction is 60-65%(normal).Normal left atrial pressure with grade I diastolic dysfunction. Compared with echo 06/20/2016, mild LVH is new. Previously, she had 15 min of slurred speech 04/27/2018. No recurrence. *Had 8 hours of slurred speech and blurred vision 12/2017, evaluated at [facility], with head CT negative for infarct per pt report. No recurrence. *Had Cardiac CTA done in 01/18/19 showed Mild coronary artery disease . Results from this visit, or from the past: hemoglobin A1c, QN, blood 07-26-2019 07/26/19 : A1c 7.7 lipid panel, blood 06-09-2019 06/09/19: TC 168 ,TG 252 ,HDL 61,LDL 57, CMP, serum or plasma 12-24-2018 12/24/18: Na 140 ,K 4.1, CL 101 ,CO2 33 , GLU 96, BUN 8 , CR 0.55, AST 21 ,ALT 24 12/24/18: Na 140 ,K 4.1, CL 101 ,CO2 33 , GLU 96, BUN 8 , CR 0.55, AST 21 ,ALT 24 12/24/18: TC 221 ,TG 182, HDL 55,LDL 134, EKG (11/28/21): NSR, IRBBB, NSST EKG, [id number] rhythm, P; normal, QRS; RSR' in V1, low voltage in precordial leads, ST-T; normal, conclusion: ECG without significant abnormalities. EKG, 08/03/19: INC, R BBB; Poor R progression in chest leads. EKG 02/02/19 : Incomplete R BBB. Low voltage in chest leads. Poor R progression in chest leads. EKG, 12/29/18: Incomplete R BBB. Low voltage in chest leads. Poor R progression in chest leads. [facility] Lexiscan Stress Test 06/20/16 : Negative Lexiscan stress test for ischemia. Normal LV systolic function. Abnormal stress test. Artifact noted. No previous study to compare. LVEF >60%. 09/17/2021 ECHO: Study quality: Technically difficult. Technical limitations - poor acoustic window. LV chamber size is normal. LV wall thickness is mildly increased. The estimated LVEF is 50-55% (normal). LV relaxation is impaired. The aortic valve is mildly calcified. There is mild aortic root calcification. There is mild tricuspid regurgitation. Mild elevation of estimated RV systolic pressure. Estimated RVSP systolic pressure is 38 mmHg. 04/28/18 ECHO: Study quality: Technically difficult. LV chamber size is normal. There is mild concentric LV hypertrophy. There is normal global systolic function and contractility. The estimated left ventricle ejection fraction is 60-65%(normal).Normal left atrial pressure with grade I diastolic dysfunction. Compared with echo 06/20/2016, mild LVH is new. 01/14/18 US CAROTID: Mild to moderate atherosclerosis in left greater than right carotid arteries. By the grayscale images and the peak systolic velocities, the findings are compatible with 16-49% stenosis in the left ICA and 0-15% stenosis in the right ICA. 01/18/19 CTA chest: Mild coronary artery disease. 01/14/18 MRI BRAIN: No mass ,mass effect, intracranial hemorrhage, or evidence of acute ischemia. Mild global cerebral and cerebellar atrophy. (MYLES) ankle brachial index 04-29-2016 Normal ankle- brachial index. No significant lower extremity peripheral arterial disease detected. [facility] 11/28/2021 14:10:46 OBGyn Episode No OBEpisode recorded.
--- OUTSIDE RECORDS SUMMARY | 2025-09-03 13:24 | XMS_ITS | Data Portability ---
Author Organization [facility], [employer] Address [address] [address] Care Team Providers Care Marine Engineering Consultant Name Role Phone ISAC JAMIL Primary Care Provider JULISA ELDER Coordinating Producer ENT [facility] Otolaryngologis t BLANCA DIMAS Training Director [phone] ROSALINO WALTERS Travel Rn Or Assessment Encounter Date Assessment Date Assessment LastModified by Organization Details LastModified Time 06/07/2019 06/07/2019 Patient presented for follow up. Studies ordered as below. Discussed plan with patient/careg iver, who expressed understanding . Follow up as noted below. Not available 06/07/2019 15:12:16 12/07/2019 12/07/2019 Patient presented for follow up. Studies ordered as below. Discussed plan with patient/careg iver, who expressed understanding . Follow up as noted below. Not available 12/07/2019 08:56:10 03/07/2020 03/07/2020 Patient presented for follow up. Studies ordered as below. Discussed plan with patient/careg iver, who expressed understanding . Follow up as noted below. Not available 03/07/2020 08:50:46 06/06/2020 06/06/2020 Patient presented for follow up. Studies ordered as below. Discussed plan with patient/careg iver, who expressed understanding . Follow up as noted below. Not available 06/06/2020 08:49:27 Plan of Treatment Reminders Order Date Submit Date Provider Last Modified By Organization Details Last Modified Time Details Appointments None recorded. Lab urinalysis , dipstick 2019 AIDE [facility] [employer], [facility], [address] [facility] [address], [place], [address], 0 09:41:09 HbA1c (hemoglobi n A1c), blood 2019 020 [email or web address] [employer] [facility], [address] [place] [address], [address], 0 09:42:03 TSH + free T4, serum 2019 [email or web address] [employer] [facility], [address] [place] [address], [address], 0 09:42:03 HbA1c (hemoglobi n A1c), blood 2019 020 [facility] [employer] [facility], [address] [place] [address], [address], 0 08:53:11 CMP, serum or plasma 2019 020 [employer] [employer] [facility], [address] [place] [address], [address], 0 09:43:18 lipid panel, serum 2019 020 [employer] [facility], [address] [place] [address], [address], 0 09:43:19 TSH + free T4, serum 2019 020 [place] 1 [employer] [facility], [address] [place] [address], [address], 0 08:53:11 vitamin D, 25-hydroxy , total, serum 2019 020 [employer] [facility], [address] [place] [address], [address], 0 10:43:28 CMP, serum or plasma 2019 020 [facility], [address] [place], [address], 0 10:43:26 CBC w/ auto diff 2019 020 [facility], [address] [place], [address], 0 10:43:26 HbA1c (hemoglobi n A1c), blood 2019 020 [place] [address] [facility], [address] [place], [address], 0 08:47:11 TSH + free T4, serum 2019 020 [place] [address] [facility], [address] [place], [address], 0 08:47:11 CMP, serum or plasma 2019 020 [facility], [address] [place], [address], 0 08:49:03 iron + TIBC + ferritin, serum 2019 020 [facility] 1 [facility], [address] [place], [address], 0 09:20:42 CBC w/ auto diff 2019 020 [facility], [address] [place], [address], 0 08:49:02 lipid panel, serum 2019 020 [facility], [address] [place], [address], 0 08:49:04 CMP, serum or plasma 2018 019 [facility], [address] [place], [address], 9 09:21:56 CBC w/ auto diff 2018 [facility], [address] [place], [address], 9 09:21:55 lipid panel, serum 2018 [facility]IDE [facility], [address] [place], [address], 9 09:21:58 magnesium, serum or plasma 2018 019 [email or web address] [facility], [address] [place], [address], 9 09:02:36 iron + TIBC + ferritin, serum 2018 [email or web address] [facility], [address] [place], [address], 9 09:02:36 vitamin D, 25-hydroxy , total, serum 2018 [email or web address], [address] [place], [address], 9 09:21:59 Referral dentist referral 2019 020 vicente 1 Not available 0 11:06:43 director of cardiopulmonary services referral 2018 019 [email or web address] Gamal Spaulding, [address] [facility] , [place] [address], [place], [address], 9 10:09:09 Procedures None recorded. Surgeries None recorded. Imaging MRI, pancreas, w/wo contrast - 6 months from 07/09/202019 020 [email or web address] [facility]), [address], [address], [place], [address], 0 09:42:27 US, duplex, carotid artery 2019 020 [email or web address] [employer], [facility], [address] , [address], [place], [address], 0 14:32:18 bone density 2018 019 AIDE [facility]STR, [employer], [address] , [address], [place], [address], 9 19:34:12 US, duplex, carotid artery [address] [facility] ([facility]), [address], [address], [place], [address], 9 09:45:17 Medication Orders baclofen 10 mg tablet 2019 020 [facility]29, [address] [place], [place], [id number], 0 09:32:54 clopidogre l 75 mg tablet 2019 020 [facility]32089, [address] [place], [place], [id number], 0 09:31:10 trazodone 50 mg tablet 2019 020 [facility]80708, [address] [place], [place], [id number], 0 09:31:10 Tylenol Extra Strength 500 mg tablet 2019 020 [facility]67718, [address] [place], [place], [id number], 0 09:29:32 Aspir-Earnestine 325 mg tablet,del ayed release 2019 [facility]52929, [address] [place], [place], [id number], 0 09:29:32 furosemide 20 mg tablet 2019 [facility] #15244, [address] [place], [place], [id number], 0 09:29:34 glimepirid e 1 mg tablet 2019 [facility] #73143, [address] [place], [place], [id number], 0 09:29:37 Repatha SureClick 140 mg/mL subcutaneo us pen injector 2019 [facility] #35906, [address] [place], [place], [id number], 0 09:29:32 Plavix 75 mg tablet 2019 [facility] #20128, [address] [place], [place], [id number], 0 09:29:33 potassium chloride ER 10 mEq tablet,ext ended release 2019 [facility] #37660, [address] [place], [place], [id number], 0 09:29:33 Cycloset 0.8 mg tablet 2019 [facility]22, [address] [place], [place], [id number], 0 16:21:29 glimepirid e 1 mg tablet 2019 020 [facility] #48173, [address] [place], [place], [id number], 0 09:20:41 doxycyclin e hyclate 100 mg capsule 2018 019 [facility] #67190, [address] [place], [place], [id number], 9 15:19:14 Patient Targets Encounter Date Encounter Id Patient Goals Patient Target Last Modified By Organization Details Last Modified Time 06/06/2020 [id number] adjunct faculty for medical terminology goal o f BMI 28 Not available Not available Not available [employer] terminology goal o f Blood Pressure 130/80 Not available Not available Not available half-way goal o f Heart Rate <100 bpm Not available Not available Not available half-way goal o f Pulse 80 bpm regular Not available Not available Not available [employer] terminology goal o f Hemoglobin A1C less than 7.0 Not available Not available Not available [employer] terminology goal o f Glucose, 2 Hour Postprandial less than 140 Not available Not available Not available [employer] faculty for medical terminology goal o f HDL greater than 40 Not available Not available Not available [employer] medical terminology goal o f TSH 0.4 - 4.0 Not available Not available Not available half-way goal o f LDL Direct less than 70 Not available Not available Not available adjunct faculty for medical terminology goal o f Fasting Glucose less than 100 Not available Not available Not available 06/06/2020 [id number] patient will notify MD if any leg swelling, shortness of breath or chest pain Notify MD if blood pressure is consistently greater than 140/90 Patient will notify MD if heart rate is greater than 100 bpm Patient will notify MD if experiencing any palpitations, dizziness, light headedness or fast heart rate Patient will do yearly lab work per MD orders to include TSH, MG and CBC Patient will have electrocardiogram (EKG) yearly Patient to get labwork (TSH) once per year Patient will notify MD if feeling down or avoiding social activity due to anxiety or depression Patient will notify MD immediately if having any suicidal or homicidal ideation Patient will notify MD if having any sleep disturbances Patient will report any unexplained weight loss or gain Patient will participate in an exercise program 3 times a week Patient will demonstrate alternative ways of dealing with negative thoughts or feelings Patient will identify at least 3 people that he/she can seek support and/or guidance Patient will exercise for 1/2 hour 3 times per week Patient will have an EKG performed once per year Patient will take one aspirin daily Patient will inform MD of any shortness of breath or chest pain with activity Patient will not smoke Patient will eat a low salt heart healthy diet Patient will monitor daily blood glucose as directed Patient will follow a diabetic diet Patient will get a diabetic eye exam yearly Patient will inspect their feet daily and notify MD of any skin breakdown Patient will have urine checked for protein yearly Patient will notify MD immediately if glucose is <70 with symptoms Patient will be on a cholesterol diet Patient will engage in a regular, safe exercise program Patient will monitor vital signs at least once/week Patient will monitor intake and output Patient will have labs drawn as per MD orders Patient will take medications as prescribed Notify MD if any fatigue, cold intolerance or palpitations Patient will use CPAP machine on a regular basis and notify MD of any difficulty using it or not using it for any reason. Notify MD of any unexplained loss of energy, daytime sleepiness, shortness of breath or leg swelling patient will exercise for 20 minutes 3 times per week Notify MD if you require OTC pain meds more than once or twice per week [facility] Not available 06/06/2020 11:28:04 Patient Instructions Encounter Date Encounter Id Patient Instructions Last Modified By Organization Details Last Modified Time 06/07/2019 [id number] learning about sleeping well [facility] Not available 06/07/2019 15:45:10 mammogram: about this test [facility] Not available 06/07/2019 15:45:10 arthritis: care instructions [facility] Not available 06/07/2019 15:45:10 osteoarthritis: care instructions [facility] Not available 06/07/2019 15:45:10 cervical spinal stenosis: care instructions [facility] Not available 06/07/2019 15:45:10 dizziness: care instructions [facility] Not available 06/07/2019 15:45:10 lumbar spinal stenosis: care instructions [facility] Not available 06/07/2019 15:45:10 atrial fibrillation: care instructions [facility] Not available 06/07/2019 15:45:10 tick bite: care instructions [facility] Not available 06/07/2019 15:45:09 high cholesterol : care instructions [facility] Not available 06/07/2019 15:45:09 carotid stenosis : care instructions [facility] Not available 06/07/2019 15:45:10 body mass index: care instructions [facility] Not available 06/07/2019 15:45:10 learning about healthy weight [facility] Not available 06/07/2019 15:45:10 hypothyroidism: care instructions [facility] Not available 06/07/2019 15:45:10 living will [facility] Not available 05/20 15:40:57 12/07/2019 [id number] mammogram: about this test [place] Not available 12/07/2019 09:20:34 anemia: care instructions [place] Not available 12/07/2019 09:20:33 high cholesterol : care instructions [place] Not available 12/07/2019 09:20:34 learning about sleeping well [facility] Not available 12/07/2019 09:23:00 carotid stenosis : care instructions [place] Not available 12/07/2019 09:20:33 atrial fibrillation: care instructions [place] Not available 12/07/2019 09:20:33 03/07/2020 [id number] arthritis: care instructions [place] Not available 03/07/2020 09:29:24 osteoarthritis: care instructions [place] Not available 03/07/2020 09:29:25 mammogram: about this test [place] Not available 03/07/2020 09:29:24 high cholesterol : care instructions [place] Not available 03/07/2020 09:29:24 carotid stenosis : care instructions [place] Not available 03/07/2020 09:29:24 hypothyroidism: care instructions [place] Not available 03/07/2020 09:29:24 hypokalemia: car e instructions [facility] Not available 03/07/2020 09:29:24 06/06/2020 [id number] mammogram: about this test [facility] Not available 06/06/2020 09:31:03 high cholesterol : care instructions [facility] Not available 06/06/2020 09:31:04 carotid stenosis : care instructions [facility] Not available 06/06/2020 09:31:04 atrial fibrillation: care instructions [facility] Not available 06/06/2020 09:31:04 hypothyroidism: care instructions [facility] Not available 06/06/2020 09:31:04 07/28/2020 [id number] mammogram: about this test [facility] Not available 07/28/2020 09:32:47 painful urinatio n (dysuria): care instructions [facility] Not available 07/28/2020 09:32:47 back care and preventing injuries: care instructions [facility] Not available 07/28/2020 09:32:47 getting back to normal after low back pain: care instructions [facility] Not available 07/28/2020 09:32:47 learning about relief for back pain [facility] Not available 07/28/2020 09:32:47 high cholesterol : care instructions [facility] Not available 07/28/2020 09:20:17 carotid stenosis : care instructions [facility]da Not available 07/28/2020 09:32:47 hypothyroidism: care instructions [facility] Not available 07/28/2020 09:20:17 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 6 Not Available [employer] [facility] [address] [place], [address], 09/28/2019 20:39:02 09/28/2009/28/2019 AST/S GOT (aspa rtate amino trans feras e), serum or plasm a HbA1C 7.2 % 4.0-5. 6 Not Available [employer] [facility] [address] [place], [address], 09/28/2019 20:39:02 06/09/20 19 06/09/2019 CBC w/ auto diff white blood cell count 7.2 thous and/u L 3.5-10 .0 Not Available Counts Include [address] [facility] [employer] [facility] [place] [address] [place], [address], 06/10/2019 09:21:55 06/09/2006/09/2019 CBC w/ auto diff red blood cell count 5.0 guzman on/uL 3.5-5. 5 Not Available [place] [address] [address] [place], [address], 06/10/2019 09:21:55 06/09/2006/09/2019 CBC w/ auto diff hemoglobin 12.9 g/dL 11.5-1 6.5 Not Available [place] [address] [place], [address], 06/10/2019 09:21:55 06/09/2006/09/2019 CBC w/ auto diff hematocrit 42 % 35-55 Not Available [place] [address] [address] [place], [address], 06/10/2019 09:21:55 06/09/2006/09/2019 CBC w/ auto diff MCH 26 pg 25-35 Not Available [place] [address] [place], [address], 06/10/2019 09:21:55 06/09/2006/09/2019 CBC w/ auto diff MCHC 31 g/dL 31-38 Not Available [place] [address] [place], [address], 06/10/2019 09:21:55 06/09/2006/09/2019 CBC w/ auto diff MCV 85 fL 75-100 Not Available [place] [address] [place], [address], 06/10/2019 09:21:55 06/09/2006/09/2019 CBC w/ auto diff RDW-CV 18 % 11-15 high Not Available [place] [address] [place], [address], 06/10/2019 09:21:55 06/09/20 19 06/09/2019 CBC w/ auto diff neutrophils% 37.9 % Not Available [place] [address] [address] [place], [address], 06/10/2019 09:21:55 06/09/20 19 06/09/2019 CBC w/ auto diff lymphocytes% 44.1 % Not Available [place] [address] [address] [place], [address], 06/10/2019 09:21:55 06/09/20 19 06/09/2019 CBC w/ auto diff monocytes% 10.2 % Not Available [place] [address] [address] [place], [address], 06/10/2019 09:21:55 06/09/20 19 06/09/2019 CBC w/ auto diff eosinophil % 6.5 % 0.0-7. 0 Not Available [place] [address] [address] [place], [address], 06/10/2019 09:21:55 06/09/20 19 06/09/2019 CBC w/ auto diff basophil % 1.2 % 0.0-3. 0 Not Available [place] [address] [address] [place], [address], 06/10/2019 09:21:55 06/09/20 19 06/09/2019 CBC w/ auto diff absolute neutrophils 2.7 cells /uL 1.5-7. 8 Not Available [place] [address] [address] [place], [address], 06/10/2019 09:21:55 06/09/20 19 06/09/2019 CBC w/ auto diff absolute lymphocytes 3.19 cells /uL 0.85-3 .90 Not Available [place] [address] [address] [place], [address], 06/10/2019 09:21:55 06/09/2006/09/2019 CBC w/ auto diff absolute monocytes 0.7 cells /uL 0.2-1. 0 Not Available [place] [address] [place], [address], 06/10/2019 09:21:55 06/09/2006/09/2019 CBC w/ auto diff absolute eosinophils 0.5 cells /uL 0.0-0. 5 Not Available [place] [address] [place], [address], 06/10/2019 09:21:55 06/09/2006/09/2019 CBC w/ auto diff absolute basophils 0.1 cells /uL 0.0-0. 2 Not Available [place] [address] [place], [address], 06/10/2019 09:21:55 06/09/2006/09/2019 CBC w/ auto diff platelet count 366 thous and/u L 100-40 0 Testi ng Perfo rmed at: [facility], [address], [address] [place] [address] Phone : [phone] Fax: Not Available [place] [address] [place], [address], 06/10/2019 09:21:55 06/09/2006/09/2019 CMP, serum or plasm a glucose 140 mg/dL 74-99 high Not Available [place] [address] [address] [place], [address], 06/10/2019 09:21:56 06/09/2006/09/2019 CMP, serum or plasm a urea nitrogen, blood (BUN) 12 mg/dL 8-23 Not Available [place] [address] [address] [place], [address], 06/10/2019 09:21:56 06/09/20 19 06/09/2019 CMP, serum or plasm a total bilirubin 0.3 mg/dL 0.0-1. 2 Not Available [place] [address] [address], [address], 06/10/2019 09:21:56 06/09/2006/09/2019 CMP, serum or plasm a total protein 6.7 g/dL 6.6-8. 7 Not Available [place] [address] [place], [address], 06/10/2019 09:21:56 06/09/2006/09/2019 CMP, serum or plasm a alanine aminotransfe rase (ALT) 41 U/L 0-33 high Not Available [place] [address] [place] [place], [address], 06/10/2019 09:21:56 06/09/2006/09/2019 CMP, serum or plasm a alkaline phosphatase 72 U/L 40-130 Not Available [place] [address] [address] [place], [address], 06/10/2019 09:21:56 06/09/2006/09/2019 CMP, serum or plasm a aspartate aminotransfe rase (AST) 30 U/L 0-32 Not Available [place] [address] [address] [place], [address], 06/10/2019 09:21:56 06/09/2006/09/2019 CMP, serum or plasm a calcium 9.7 mg/dL 8.6-10 .2 Not Available [place] [address] [place] [place], [address], 06/10/2019 09:21:56 06/09/2006/09/2019 CMP, serum or plasm a albumin 4.2 g/dL 3.5-5. 2 Not Available [place] [address] [address] [place], [address], 06/10/2019 09:21:56 06/09/2006/09/2019 CMP, serum or plasm a CO2 31 mmol/ L 23-31 Not Available [place] [address] [address] [place], [address], 06/10/2019 09:21:56 06/09/2006/09/2019 CMP, serum or plasm a creatinine, serum 0.5 mg/dL 0.5-0. 9 Not Available [place] [address] [address] [place], [address], 06/10/2019 09:21:56 06/09/2006/09/2019 CMP, serum or plasm a sodium, serum 140 mmol/ L 136-14 5 Not Available [place] [address] [address] [place], [address], 06/10/2019 09:21:56 06/09/2006/09/2019 CMP, serum or plasm a potassium, serum 4.5 mmol/ L 3.5-5. 1 Not Available [place] [address] [place], [address], 06/10/2019 09:21:56 06/09/2006/09/2019 CMP, serum or plasm a chloride, serum 97 mmol/ L 98-107 low Not Available [place] [address] [address] [place], [address], 06/10/2019 09:21:56 06/09/2006/09/2019 CMP, serum or plasm a eGFR 140 >59 Persi stent reduc tion for 3 month s or more in an eGFR <60 mL/mi n/1.7 3 m2 defin es CKD. Patie nts with eGFR value s>/=6 0 mL/mi n/1.7 3 m2 may also have CKD if evide nce of persi stent protu nisherry a is prese nt. Addit ional infor julianna stout may be found at www.k doqi. org. Not Available [place] [address] [place], [address], 06/10/2019 09:21:56 06/09/2006/09/2019 inder tin, serum or plasm a ferritin 25 NG/mL 13-150 Not Available [facility] [address] [place], [address], 06/10/2019 09:21:57 06/09/2006/09/2019 iron panel , serum or plasm a transferrin 372 mg/dL 200-36 0 high Not Available [place] [address] [address] [place], [address], 06/10/2019 09:21:57 06/09/2006/09/2019 iron panel , serum or plasm a iron 101 ug/dL 25-156 Not Available [place] [address] [address] [place], [address], 06/10/2019 09:21:57 06/09/2006/09/2019 iron panel , serum or plasm a % transferrin saturation 19.39 20.00- 50.00 low Not Available [place] [address] [address] [place], [address], 06/10/2019 09:21:57 06/09/2006/09/2019 iron panel , serum or plasm a TIBC 521 ug/dL 250-45 0 high Not Available [place] [address] [place], [address], 06/10/2019 09:21:57 06/09/2006/09/2019 lipid panel , serum trigylceride s 252 mg/dL 0-150 high Not Available [place] [address] [place], [address], 06/10/2019 09:21:58 06/09/2006/09/2019 lipid panel , serum cholesterol 168 mg/dL 0-200 Not Available [place] [address] [place], [address], 06/10/2019 09:21:58 06/09/2006/09/2019 lipid panel , serum uhdl 61 mg/dL 45-65 Not Available [place] [address] [place], [address], 06/10/2019 09:21:58 06/09/2006/09/2019 lipid panel , serum LDL, calculated 57 mg/dL 0-100 Not Available [place] [address] [place], [address], 06/10/2019 09:21:58 06/09/20 19 06/09/2019 lipid panel , serum LDL/HDL ratio 1 mg/dL 0-5 Not Available [place] [address] [place], [address], 06/10/2019 09:21:58 06/09/2006/09/2019 lipid panel , serum VLDL 50.4 mg/dL 5.0-40 .0 high Not Available [place] [address] [place], [address], 06/10/2019 09:21:58 06/09/2006/09/2019 lipid panel , serum cholesterol/ HDL ratio 2.75 0.00-5 .00 Not Available [place] [address] [place], [address], 06/10/2019 09:21:58 06/09/2006/09/2019 magne sium, QN, serum or plasm a magnesium 1.7 mg/dL 1.6-2. 4 Not Available [place] [address] [place], [address], 06/10/2019 09:21:58 06/09/2006/09/2019 vitam in D, 25-hy droxy , total , serum vitamin D 32.1 NG/mL 30.0-9 6.0 Defic ient: <=20 ng/mL Insuf ficie nt: 21-29 ng/mL Suffi cient : >=30 ng/mL Not Available [place] [address] [place], [address], 06/10/2019 09:21:59 06/09/2006/09/2019 LDL, direc t, serum dldl 84 mg/dL 0-100 Not Available Counts Include [address] [facility] [place] [address] [place], [address], 06/11/2019 14:20:12 07/26/20 19 07/26/2019 ALT (kourtney ine amino trans feras e), serum or plasm a alanine aminotransfe rase (ALT) 43 U/L 0-33 high Not Available Counts Include [facility] [facility] [place] [address] Peggy Mccalle [place], [address], 07/27/2019 09:18:14 07/26/2007/26/2019 AST/S GOT (aspa rtate amino trans feras e), serum or plasm a aspartate aminotransfe rase (AST) 31 U/L 0-32 Testi ng Perfo rmed at: [facility] [address], [address] [place] [address] Phone : [phone] Fax: Not Available [facility] [place] [address] Toby Mccall [place], [address], 07/27/2019 09:18:15 07/26/2007/26/2019 hemog lobin A1c, QN, blood HGBA1C 7.7 % 4.0-5. 6 high Not Available [facility] [place] [address] Toby Mccall [place], [address], 07/27/2019 09:18:15 09/28/20 19 09/28/2019 HbA1c (hemo globi n A1c), blood HbA1C 7.2 % 4.0-5. 6 Not Available [facility] [address] [address], [place], [address], 09/28/2019 13:06:06 12/07/19 20 12/07/2019 CBC w/ auto diff white blood cell count 5.5 thous and/u L 3.5-10 .0 Not Available [facility] [place] [address] Peggy MccallHARINDER sm[place], [address], 12/08/2019 08:49:02 12/07/19 20 12/07/2019 CBC w/ auto diff red blood cell count 4.5 guzman on/uL 3.5-5. 5 Not Available [place] [address] Rajwinder Chappell [place], [address], 12/08/2019 08:49:02 12/07/19 20 12/07/2019 CBC w/ auto diff hemoglobin 12.9 g/dL 11.5-1 6.5 Not Available [place] [address] Rajwinder Chappell [place], [address], 12/08/2019 08:49:02 12/07/19 20 12/07/2019 CBC w/ auto diff hematocrit 41 % 35-55 Not Available [place] [address] [place], [address], 12/08/2019 08:49:02 12/07/19 20 12/07/2019 CBC w/ auto diff MCH 29 pg 25-35 Not Available [place] [address] [place], [address], 12/08/2019 08:49:02 12/07/19 20 12/07/2019 CBC w/ auto diff MCHC 32 g/dL 31-38 Not Available [place] [address] Rajwinder Chappell [place], [address], 12/08/2019 08:49:02 12/07/19 20 12/07/2019 CBC w/ auto diff MCV 91 fL 75-100 Not Available [place] [address] [place], [address], 12/08/2019 08:49:02 12/07/19 20 12/07/2019 CBC w/ auto diff RDW-CV 16 % 11-15 high Not Available [place] [address] [place], [address], 12/08/2019 08:49:02 12/07/19 20 12/07/2019 CBC w/ auto diff neutrophils% 34.2 % Not Available [facility] [place] [address] Rajwinder Chappell [place], [address], 12/08/2019 08:49:02 12/07/19 20 12/07/2019 CBC w/ auto diff lymphocytes% 43.4 % Not Available [facility] [place] [address] Rajwinder Chappell [place], [address], 12/08/2019 08:49:02 12/07/19 20 12/07/2019 CBC w/ auto diff monocytes% 11.9 % Not Available [facility] [place] [address] Rajwinder Chappell [place], [address], 12/08/2019 08:49:02 12/07/1912/07/2019 CBC w/ auto diff eosinophil % 8.9 % 0.0-7. 0 high Not Available Counts Include [address] [facility] [place] [address] [place], [address], 12/08/2019 08:49:02 12/07/19 20 12/07/2019 CBC w/ auto diff basophil % 1.4 % 0.0-3. 0 Not Available Counts Include [address] [facility] [place] [address] [place], [address], 12/08/2019 08:49:02 12/07/19 20 12/07/2019 CBC w/ auto diff absolute neutrophils 1.9 cells /uL 1.5-7. 8 Not Available [facility] [place] [address] [place], [address], 12/08/2019 08:49:02 12/07/19 20 12/07/2019 CBC w/ auto diff absolute lymphocytes 2.40 cells /uL 0.85-3 .90 Not Available Counts Include [address] [facility] [place] [address] [place], [address], 12/08/2019 08:49:02 12/07/19 20 12/07/2019 CBC w/ auto diff absolute monocytes 0.7 cells /uL 0.2-1. 0 Not Available [facility] [place] [address] [place], [address], 12/08/2019 08:49:02 12/07/19 20 12/07/2019 CBC w/ auto diff absolute eosinophils 0.5 cells /uL 0.0-0. 5 Not Available [place] [address] [place], [address], 12/08/2019 08:49:02 12/07/19 20 12/07/2019 CBC w/ auto diff absolute basophils 0.1 cells /uL 0.0-0. 2 Not Available [place] [address] Rajwinder Chappell [place], [address], 12/08/2019 08:49:02 12/07/19 20 12/07/2019 CBC w/ auto diff platelet count 290 thous and/u L 100-40 0 Testi ng Perfo rmed at: [facility] [address], [address] [place] [address] Phone : [phone] Fax: Not Available [place] [address] Rajwinder Chappell [place], [address], 12/08/2019 08:49:02 12/07/19 20 12/07/2019 CMP, serum or plasm a glucose 122 mg/dL 74-99 high Not Available [place] [address] [place], [address], 12/08/2019 08:49:03 12/07/1912/07/2019 CMP, serum or plasm a urea nitrogen, blood (BUN) 9 mg/dL 8-23 Not Available [place] [address] Rajwinder Chappell [place], [address], 12/08/2019 08:49:03 12/07/19 20 12/07/2019 CMP, serum or plasm a total bilirubin 0.2 mg/dL 0.0-1. 2 Not Available [place] [address] Rajwinder Chappell [place], [address], 12/08/2019 08:49:03 12/07/19 20 12/07/2019 CMP, serum or plasm a total protein 6.8 g/dL 6.6-8. 7 Not Available [facility] [place] [address] Toby MccallHARINDER, [address], 12/08/2019 08:49:03 12/07/19 20 12/07/2019 CMP, serum or plasm a alanine aminotransfe rase (ALT) 30 U/L 0-33 Not Available [facility] [place] [address] Rajwinder MccalltteHARINDER, [address], 12/08/2019 08:49:03 12/07/1912/07/2019 CMP, serum or plasm a alkaline phosphatase 68 U/L 40-130 Not Available [facility] [place] [address] Rajwinder Chappell [place], [address], 12/08/2019 08:49:03 12/07/1912/07/2019 CMP, serum or plasm a aspartate aminotransfe rase (AST) 27 U/L 0-32 Not Available [facility] [place] [address] Rajwinder Chappell [place], [address], 12/08/2019 08:49:03 12/07/1912/07/2019 CMP, serum or plasm a calcium 9.5 mg/dL 8.6-10 .2 Not Available [facility] [place] [address] Rajwinder Chappell [place], [address], 12/08/2019 08:49:03 12/07/1912/07/2019 CMP, serum or plasm a albumin 4.5 g/dL 3.5-5. 2 Not Available [facility] [place] [address] Rajwinder Chappell [place], [address], 12/08/2019 08:49:03 12/07/1912/07/2019 CMP, serum or plasm a CO2 32 mmol/ L 23-31 high Not Available [facility] [place] [address] Rajwinder Chappell [place], [address], 12/08/2019 08:49:03 12/07/19 20 12/07/2019 CMP, serum or plasm a creatinine, serum 0.4 mg/dL 0.5-0. 9 low Not Available [facility] [place] [address] [place], [address], 12/08/2019 08:49:03 12/07/19 20 12/07/2019 CMP, serum or plasm a sodium, serum 139 mmol/ L 136-14 5 Not Available [facility] [place] [address] [place], [address], 12/08/2019 08:49:03 12/07/19 20 12/07/2019 CMP, serum or plasm a potassium, serum 4.7 mmol/ L 3.5-5. 1 Not Available [facility] [place] [address] [place], [address], 12/08/2019 08:49:03 12/07/19 20 12/07/2019 CMP, serum or plasm a chloride, serum 95 mmol/ L 98-107 low Not Available [facility] [place] [address] [place], [address], 12/08/2019 08:49:03 12/07/19 20 12/07/2019 CMP, serum or plasm a eGFR 151 >59 Persi stent reduc tion for 3 month s or more in an eGFR <60 mL/mi n/1.7 3 m2 defin es CKD. Patie nts with eGFR value s>/=6 0 mL/mi n/1.7 3 m2 may also have CKD if evide nce of persi stent protu niuri a is prese nt. Addit ional infor matchristy n may be found at www.k doqi. org. Not Available [facility] [place] [address] [place], [address], 12/08/2019 08:49:03 12/07/19 20 12/07/2019 inder tin, serum or plasm a ferritin 31 NG/mL 13-150 Not Available [facility] [place] [address] [place], [address], 12/08/2019 08:49:03 12/07/19 20 12/07/2019 iron panel , serum or plasm a transferrin 323 mg/dL 200-36 0 Not Available [place] [address] Rajwinder Chappell [place], [address], 12/08/2019 08:49:03 12/07/1912/07/2019 iron panel , serum or plasm a iron 100 ug/dL 25-156 Not Available [place] [address] Rajwinder Chappell [place], [address], 12/08/2019 08:49:03 12/07/1912/07/2019 iron panel , serum or plasm a % transferrin saturation 22.11 20.00- 50.00 Not Available [place] [address] [place], [address], 12/08/2019 08:49:03 12/07/1912/07/2019 iron panel , serum or plasm a TIBC 452 ug/dL 250-45 0 high Not Available [place] [address] [place], [address], 12/08/2019 08:49:03 12/07/1912/07/2019 lipid panel , serum trigylceride s 252 mg/dL 0-150 high Not Available [place] [address] [place], [address], 12/08/2019 08:49:04 12/07/1912/07/2019 lipid panel , serum cholesterol 138 mg/dL 0-200 Not Available [place] [address] [place], [address], 12/08/2019 08:49:04 12/07/1912/07/2019 lipid panel , serum uhdl 54 mg/dL 45-65 Not Available [place] [address] [place], [address], 12/08/2019 08:49:04 12/07/1909 1212/07/2019 lipid panel , serum LDL, calculated 34 mg/dL 0-100 Not Available [place] [address] [place], [address], 12/08/2019 08:49:04 12/07/19 20 12/07/2019 lipid panel , serum LDL/HDL ratio 1 mg/dL 0-5 Not Available [place] [address] [place], [address], 12/08/2019 08:49:04 12/07/19 20 12/07/2019 lipid panel , serum VLDL 50.4 mg/dL 5.0-40 .0 high Not Available [place] [address] [place], [address], 12/08/2019 08:49:04 12/07/19 20 12/07/2019 lipid panel , serum cholesterol/ HDL ratio 2.56 0.00-5 .00 Not Available [place] [address] [place], [address], 12/08/2019 08:49:04 03/07/20 20 03/07/2020 hemog lobin A1c, QN, blood HGBA1C 7.8 % 4.0-6. 0 high Testi ng Perfo rmed at: [facility] [address], [address] [place] [address] Phone : Fax: Not Available [place] [address] [place], [address], 03/08/2020 10:43:25 03/07/20 20 03/07/2020 CBC w/ auto diff white blood cell count 7.0 thous and/u L 3.5-10 .0 Not Available [place] [address] [place], [address], 03/08/2020 10:43:26 03/07/20 20 03/07/2020 CBC w/ auto diff red blood cell count 4.5 guzman on/uL 3.5-5. 5 Not Available [place] [address] Rajwinder MccallHARINDER [place], [address], 03/08/2020 10:43:26 03/07/20 20 03/07/2020 CBC w/ auto diff hemoglobin 13.4 g/dL 11.5-1 6.5 Not Available [place] [address] Toby MccallHARIND[place], [address], 03/08/2020 10:43:26 03/07/20 20 03/07/2020 CBC w/ auto diff hematocrit 42 % 35-55 Not Available [place] [address] Rajwinder Chappell [place], [address], 03/08/2020 10:43:26 03/07/20 20 03/07/2020 CBC w/ auto diff MCH 30 pg 25-35 Not Available [place] [address] Rajwinder Chappell [place], [address], 03/08/2020 10:43:26 03/07/20 20 03/07/2020 CBC w/ auto diff MCHC 32 g/dL 31-38 Not Available [place] [address] Rajwinder Chappell [place], [address], 03/08/2020 10:43:26 03/07/20 20 03/07/2020 CBC w/ auto diff MCV 94 fL 75-100 Not Available [place] [address] Rajwinder Chappell [place], [address], 03/08/2020 10:43:26 03/07/20 20 03/07/2020 CBC w/ auto diff RDW-CV 15 % 11-15 Not Available [place] [address] Rajwinder Chappell [place], [address], 03/08/2020 10:43:26 03/07/20 20 03/07/2020 CBC w/ auto diff neutrophils% 41.0 % Not Available [place] [address] Rajwinder Chappell [place], [address], 03/08/2020 10:43:26 03/07/20 20 03/07/2020 CBC w/ auto diff lymphocytes% 36.7 % Not Available [facility] [place] [address] Rajwinder Chappell [place], [address], 03/08/2020 10:43:26 03/07/20 20 03/07/2020 CBC w/ auto diff monocytes% 12.6 % Not Available [facility] [place] [address] Rajwinder Chappell [place], [address], 03/08/2020 10:43:26 03/07/20 20 03/07/2020 CBC w/ auto diff eosinophil % 8.5 % 0.0-7. 0 high Not Available Counts Include [address] [facility] [place] [address] Rajwinder Chappell [place], [address], 03/08/2020 10:43:26 03/07/20 20 03/07/2020 CBC w/ auto diff basophil % 1.1 % 0.0-3. 0 Not Available Counts Include [address] [place] [address] Rajwinder Chappell [place], [address], 03/08/2020 10:43:26 03/07/20 20 03/07/2020 CBC w/ auto diff absolute neutrophils 2.9 cells /uL 1.5-7. 8 Not Available [facility] [place] [address] Rajwinder Chappell [place], [address], 03/08/2020 10:43:26 03/07/20 20 03/07/2020 CBC w/ auto diff absolute lymphocytes 2.56 cells /uL 0.85-3 .90 Not Available [facility] [place] [address] Rajwinder Chappell [place], [address], 03/08/2020 10:43:26 03/07/20 20 03/07/2020 CBC w/ auto diff absolute monocytes 0.9 cells /uL 0.2-1. 0 Not Available [facility] [place] [address] Rajwinder Chappell [place], [address], 03/08/2020 10:43:26 03/07/20 20 03/07/2020 CBC w/ auto diff absolute eosinophils 0.6 cells /uL 0.0-0. 5 high Not Available [place] [address] [place], [address], 03/08/2020 10:43:26 03/07/20 20 03/07/2020 CBC w/ auto diff absolute basophils 0.1 cells /uL 0.0-0. 2 Not Available [place] [address] [place], [address], 03/08/2020 10:43:26 03/07/20 20 03/07/2020 CBC w/ auto diff platelet count 286 thous and/u L 100-40 0 Testi ng Perfo rmed at: [facility] [address], [address] [place] [address] Phone : Fax: Not Available [place] [address] [place], [address], 03/08/2020 10:43:26 03/07/20 20 03/07/2020 CMP, serum or plasm a glucose 143 mg/dL 74-99 high Not Available [place] [address] [place], [address], 03/08/2020 10:43:26 03/07/20 20 03/07/2020 CMP, serum or plasm a urea nitrogen, blood (BUN) 10 mg/dL 8-23 Not Available [place] [address] [place], [address], 03/08/2020 10:43:26 03/07/20 20 03/07/2020 CMP, serum or plasm a total bilirubin 0.2 mg/dL 0.0-1. 2 Not Available [place] [address] [place], [address], 03/08/2020 10:43:26 03/07/20 20 03/07/2020 CMP, serum or plasm a total protein 6.9 g/dL 6.6-8. 7 Not Available [facility] [place] [address] [place], [address], 03/08/2020 10:43:26 03/07/20 20 03/07/2020 CMP, serum or plasm a alanine aminotransfe rase (ALT) 51 U/L 0-33 high Not Available [facility] [place] [address] [place], [address], 03/08/2020 10:43:26 03/07/20 20 03/07/2020 CMP, serum or plasm a alkaline phosphatase 81 U/L 40-130 Not Available [facility] [place] [address] [place], [address], 03/08/2020 10:43:26 03/07/20 20 03/07/2020 CMP, serum or plasm a aspartate aminotransfe rase (AST) 31 U/L 0-32 Not Available [facility] [place] [address] [place], [address], 03/08/2020 10:43:26 03/07/20 20 03/07/2020 CMP, serum or plasm a calcium 9.2 mg/dL 8.6-10 .2 Not Available Counts Include [address] [facility] [place] [address] Rajwinder Chappell, [place], [address], 03/08/2020 10:43:26 03/07/20 20 03/07/2020 CMP, serum or plasm a albumin 4.3 g/dL 3.5-5. 2 Not Available [facility] [place] [address] [place], [address], 03/08/2020 10:43:26 03/07/20 20 03/07/2020 CMP, serum or plasm a CO2 31 mmol/ L 23-31 Not Available [facility] [place] [address] [place], [address], 03/08/2020 10:43:26 03/07/20 20 03/07/2020 CMP, serum or plasm a creatinine, serum 0.5 mg/dL 0.5-0. 9 Not Available [facility] [place] [address] [place], [address], 03/08/2020 10:43:26 03/07/2003/07/2020 CMP, serum or plasm a sodium, serum 141 mmol/ L 136-14 5 Not Available [facility] [place] [address] [place], [address], 03/08/2020 10:43:26 03/07/2003/07/2020 CMP, serum or plasm a potassium, serum 4.4 mmol/ L 3.5-5. 1 Not Available [facility] [place] [address] [place], [address], 03/08/2020 10:43:26 03/07/20 20 03/07/2020 CMP, serum or plasm a chloride, serum 98 mmol/ L 98-107 Not Available [facility] [place] [address] [place], [address], 03/08/2020 10:43:26 03/07/2003/07/2020 CMP, serum or plasm a eGFR 147 >59 Persi stent reduc tion for 3 month s or more in an eGFR <60 mL/mi n/1.7 3 m2 defin es CKD. Patie nts with eGFR value s>/=6 0 mL/mi n/1.7 3 m2 may also have CKD if evide nce of persi stent protu niuri a is prese nt. Addit ional infor julianna stout may be found at www.k doqi. org. Not Available [facility] [place] [address] [place], [address], 03/08/2020 10:43:26 03/07/2003/07/2020 T4, free, serum FT4 1.47 NG/dL 0.93-1 .70 Not Available [facility] [place] [address] [place], [address], 03/08/2020 10:43:27 03/07/20 20 03/07/2020 TSH, serum or plasm a TSH 2.65 ??IU/ mL 0.27-4 .20 Not Available [place] [address] [place], [address], 03/08/2020 10:43:27 03/07/20 20 03/07/2020 vitam in D, 25-hy droxy , total , serum vitamin D 55.3 NG/mL 30.0-9 6.0 Defic ient: <=20 ng/mL Insuf ficie nt: 21-29 ng/mL Suffi cient : >=30 ng/mL Not Available [place] [address] [place], [address], 03/08/2020 10:43:28 06/06/20 20 06/06/2020 hemog lobin A1c, QN, blood HGBA1C 8.6 % 4.0-6. 0 high Testi ng Perfo rmed at: [facility] [address] [place] [address], [address] [place] [address] Phone : [phone] Fax: Not Available [place] [address] [place], [address], 06/07/2020 09:43:17 06/06/20 20 06/06/2020 CMP, serum or plasm a glucose 194 mg/dL 74-99 high Not Available [place] [address] [place], [address], 06/07/2020 09:43:18 06/06/20 20 06/06/2020 CMP, serum or plasm a urea nitrogen, blood (BUN) 8 mg/dL 8-23 Not Available [place] [address] [place], [address], 06/07/2020 09:43:18 06/06/20 20 06/06/2020 CMP, serum or plasm a total bilirubin 0.3 mg/dL 0.0-1. 2 Not Available [place] [address] [place], [address], 06/07/2020 09:43:18 06/06/20 20 06/06/2020 CMP, serum or plasm a total protein 7.0 g/dL 6.6-8. 7 Not Available [facility] [place] [address] [place], [address], 06/07/2020 09:43:18 06/06/20 20 06/06/2020 CMP, serum or plasm a alanine aminotransfe rase (ALT) 68 U/L 0-33 high Not Available [facility] [place] [address] [place], [address], 06/07/2020 09:43:18 06/06/2006/06/2020 CMP, serum or plasm a alkaline phosphatase 81 U/L 40-130 Not Available [facility] [place] [address] Tob[place] M[place]allHAR[place], [address], 06/07/2020 09:43:18 06/06/20 20 06/06/2020 CMP, serum or plasm a aspartate aminotransfe rase (AST) 50 U/L 0-32 high Not Available [facility] [place] [address] Toby Mccall [place], [address], 06/07/2020 09:43:18 06/06/2006/06/2020 CMP, serum or plasm a calcium 9.6 mg/dL 8.6-10 .2 Not Available [facility] [place] [address] Tob[place] Mccall [place], [address], 06/07/2020 09:43:18 06/06/2006/06/2020 CMP, serum or plasm a albumin 4.5 g/dL 3.5-5. 2 Not Available [facility] [place] [address] Tob[place]allH[place], [address], 06/07/2020 09:43:18 06/06/20 20 06/06/2020 CMP, serum or plasm a CO2 31 mmol/ L 23-31 Not Available [facility] [place] [address] [place], [address], 06/07/2020 09:43:18 06/06/2006/06/2020 CMP, serum or plasm a creatinine, serum 0.5 mg/dL 0.5-0. 9 Not Available [facility] [place] [address] Rajwinder Chappell [place], [address], 06/07/2020 09:43:18 06/06/2006/06/2020 CMP, serum or plasm a sodium, serum 139 mmol/ L 136-14 5 Not Available [facility] [place] [address] Rajwinder Chappell [place], [address], 06/07/2020 09:43:18 06/06/2006/06/2020 CMP, serum or plasm a potassium, serum 4.2 mmol/ L 3.5-5. 1 Not Available [facility] [place] [address] [place], [address], 06/07/2020 09:43:18 06/06/2006/06/2020 CMP, serum or plasm a chloride, serum 98 mmol/ L 98-107 Not Available [facility] [place] [address] Rajwinder Chappell [place], [address], 06/07/2020 09:43:18 06/06/2006/06/2020 CMP, serum or plasm a eGFR 133 >59 Persi stent reduc tion for 3 month s or more in an eGFR <60 mL/mi n/1.7 3 m2 defin es CKD. Patie nts with eGFR value s>/=6 0 mL/mi n/1.7 3 m2 may also have CKD if evide nce of persi stent protu nisherry a is prese nt. Addit ional infor julianna stout may be found at www.k doqi. org. Not Available [facility] [place] [address] [place], [address], 06/07/2020 09:43:18 06/06/2006/06/2020 T4, free, serum FT4 1.27 NG/dL 0.93-1 .70 Not Available [facility] [place] [address] [address] [place], [address], 06/07/2020 09:43:19 06/06/20 20 06/06/2020 lipid panel , serum trigylceride s 250 mg/dL 0-150 high Not Available Counts Include [address] [facility] [place] [address] [address] [place], [address], 06/07/2020 09:43:19 06/06/20 20 06/06/2020 lipid panel , serum cholesterol 189 mg/dL 0-200 Not Available Counts Include [address] [facility] [place] [address] [place], [address], 06/07/2020 09:43:19 06/06/20 20 06/06/2020 lipid panel , serum uhdl 61 mg/dL 45-65 Not Available Counts Include [address] [facility] [place] [address] [place], [address], 06/07/2020 09:43:19 06/06/20 20 06/06/2020 lipid panel , serum LDL, calculated 78 mg/dL 0-100 Not Available Counts Include [address] [facility] [place] [address] [place], [address], 06/07/2020 09:43:19 06/06/2006/06/2020 lipid panel , serum LDL/HDL ratio 1 mg/dL 0-5 Not Available Counts Include [address] [facility] [place] [address] [place], [address], 06/07/2020 09:43:19 06/06/20 20 06/06/2020 lipid panel , serum VLDL 50.0 mg/dL 5.0-40 .0 high Not Available [facility] [place] [address] [place], [address], 06/07/2020 09:43:19 06/06/20 20 06/06/2020 lipid panel , serum cholesterol/ HDL ratio 3.10 0.00-5 .00 Not Available [facility] [place] [address] [place], [address], 06/07/2020 09:43:19 06/06/20 20 06/06/2020 TSH, serum or plasm a TSH 5.56 ??IU/ mL 0.27-4 .20 high Not Available [place] [address] [place], [address], 06/07/2020 09:43:20 07/12/20 20 07/13/2020 amyla se, serum or plasm a amylase 46 U/L 21-101 normal Not Available [place] [address] [place], [address], 07/13/2020 10:30:21 07/12/20 20 07/13/2020 lipas e, serum or plasm a lipase 49 U/L 7-60 normal Not Available [place] [address] [place], [address], 07/13/2020 10:30:21 07/28/20 20 07/28/2020 hemog lobin A1c, QN, blood HGBA1C 7.5 % 4.0-6. 0 high Testi ng Perfo rmed at: [facility], [place] [address], [address] [place] [address] Phone : [phone] Fax: Not Available [address] [place], [address], 07/31/2020 11:43:32 07/28/2007/28/2020 T4, free, serum FT4 1.51 NG/dL 0.93-1 .70 Not Available [place] [address] [place], [address], 07/31/2020 11:43:33 07/28/20 20 07/28/2020 TSH, serum or plasm a TSH 2.26 ??IU/ mL 0.27-4 .20 Not Available [place] [address] [place], [address], 07/31/2020 11:43:33 08/01/2008/01/2020 urina lysis , dipst ick Leukocytes Negati ve Not Available [address] [place], [place], [address], 07/28/2020 09:23:56 08/01/2008/01/2020 urina lysis , dipst ick Nitrite negati ve Not Available [address] [place], [place], [address], 07/28/2020 09:23:56 08/01/2008/01/2020 urina lysis , dipst ick Urobilinogen .2 Not Available [address] [place], [place], [address], 07/28/2020 09:23:56 08/01/2008/01/2020 urina lysis , dipst ick Protein Negati ve Not Available [address] [place], [place], [address], 07/28/2020 09:23:56 08/01/2008/01/2020 urina lysis , dipst ick pH 6.0 Not Available [address] [place], [place], [address], 07/28/2020 09:23:56 08/01/2008/01/2020 urina lysis , dipst ick Blood Negati ve Not Available [address] [place], [place], [address], 07/28/2020 09:23:56 08/01/2008/01/2020 urina lysis , dipst ick Specific [place] 1.020 Not Available [place] [address] [place], [place], [address], 07/28/2020 09:23:56 08/01/2008/01/2020 urina lysis , dipst ick Ketone Negati ve Not Available [address] [place], [place], [address], 07/28/2020 09:23:56 08/01/2008/01/2020 urina lysis , dipst ick Bilirubin Negati ve Not Available [address] [place], [place], [address], 07/28/2020 09:23:56 08/01/2008/01/2020 urina lysis , dipst ick Glucose Negati ve Not Available [address] [place], [place], [address], 07/28/2020 09:23:56 08/01/2008/01/2020 urina lysis , dipst ick Appearance Clear Not Available [address] [place], [place], [address], 07/28/2020 09:23:56 08/01/2008/01/2020 urina lysis , dipst ick Color Yellow Not Available [address] [place], [place], [address], 07/28/2020 09:23:56 11/29/1911/29/2021 HbA1c (hemo globi n A1c), blood HbA1C 7.7 % 4-5.6 Not Available [facility] [address], [place], [address], 12/04/2021 11:46:56 11/29/1911/29/2021 BMP, serum or plasm a HbA1C 7.7 % 4-5.6 Not Available [facility] [address], [place], [address], 12/03/2021 17:14:24 06/07/20 01/18/2019 CT, angio gram, chest , w/ contr ast No observ ation record ed. [facility] [place] [address] [facility] [address], [place], [address], 12/07/2019 09:08:36 06/07/20 19 US, echoc ardio gram No observ ation record ed. [facility] [place] [address] [facility] [address], [place], [address], 12/07/2019 09:08:36 06/07/20 19 cardi ac stres s test No observ ation record ed. [facility] [place] [address] [facility] [address], [place], [address], 12/07/2019 09:08:37 06/10/20 19 06/09/2019 bone densi ty No observ ation record ed. [facility] Not Available 2019 09:08:35 06/14/20 19 01/09/2019 US, carot id arter y No observ ation record ed. [facility] ([facility]) [address], [place], [address], 12/07/2019 09:08:35 03/06/20 20 elect alisa perry am No observ ation record ed. [address], [place], [address], 03/07/2020 09:16:17 04/06/2003/16/2020 US, cali x, carot id arter y No observ ation record ed. [facility], [address], [place], [address], 06/06/2020 09:16:54 04/06/2003/16/2020 US, cali x, carot id arter y No observ ation record ed. [facility], [place] [id number], [place], [address], 06/06/2020 09:16:54 05/05/20 20 05/05/2020 MAMMO , scree aisha, bilat eral No observ ation record ed. [facility] [address] [facility] , [place], [address], 06/06/2020 09:16:53 07/06/20 20 07/06/2020 CT, abdom en + pelvi s, w/ contr ast No observ ation record ed. [facility] Not Available 2019 09:15:27 09/27/20 21 09/17/2021 US, echo ardio gram No observ ation record ed. [facility] [address] [facility] [address], [place], [address], 09/27/2021 20:10:34 Result Notes None recorded. 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 Not Available [facility] 0 20:45:32 Menopause Active Not Available [facility] 0 20:45:32 Non-organ ic sleep disorder 272296975 Completed 12/07/2019 Isac Jamil MD [address] [facility] [address], [place], [address] , [facility] 0 09:21:07 Osteoarth ritis 822273811 Active Not Available [facility] 0 20:45:32 Body mass index 30+ - obesity 533287199 Completed 201506/07/2019 Isac Jamil MD [address], [place], [address] , [facility] 9 15:33:24 Spinal stenosis in cervical region 35151929 Active 2016 Not Available [facility] 0 20:45:32 Spinal stenosis of lumbar region 83528384 Active 2017 Not Available [facility] 0 20:45:32 Headache 25200191 Active 2017 Not Available [facility] 0 20:45:32 Carotid artery stenosis 16785036 Active 2017 Not Available [facility] 0 20:45:32 Mixed anxiety and depressiv e disorder 405053667 Active 2017 Not Available [facility] 0 20:45:32 Gastroeso phageal reflux disease without esophagit is 958937151 Active 2018 Not Available [facility] 0 20:45:32 Coronary arteriosc lerosis 01635219 Active [address] 01/18/19 Not Available [facility] 0 20:45:32 Obstructi ve sleep apnea of adult 37606596771 03 Active 2019 Not Available [facility] 0 20:45:32 Hypokalem ia 56689670 Active 2019 Not Available [facility] 0 20:45:32 Uncontrol led type 2 diabetes mellitus 063802219 Active 2019 Not Available [facility] 0 20:45:32 Cyst of pancreas 47225077 Active 2019 Isac Jamil MD [address], [place], [address] , [facility] 0 09:17:23 Neoplasm of pancreas 185759571 Active 2019 Isac Jamil MD [address], [place], [address] , [facility] 0 09:20:34 Problem Notes None recorded. Procedures Surgical History Date Name Laterality Status Provider Name and Address Organization Details Recorded Time 09/07/20 20 Colonoscopy completed MD Chao Aveyr [address], [place], [address], [facility] 09/08/2020 12:01:02 07/28/20 Diabetic Foot Exam completed MD Chao Avery [address], [place], [address], [facility] 07/28/2020 09:31:36 06/06/20 Diabetic Foot Exam completed MD Chao [address], [place], [address], [facility] 06/06/2020 09:30:28 03/07/20 Diabetic Foot Exam completed MD Chao Avery [address], [place], [address], [facility] 03/07/2020 09:17:36 12/07/19 Diabetic Foot Exam completed MD Ch[address], [place], [address], [facility] 12/07/2019 09:14:14 04/15/20 Diabetic Foot Exam completed MD Chao Avery [address], [place], [address], [facility] 04/15/2019 14:33:35 10/14/20 18 Diabetic Foot Exam completed MD Chao [address], [place], [address], [facility] 10/14/2018 14:19:37 07/14/20 18 Diabetic Foot Exam completed MD Chao Avery [address], [place], [address], [facility] 07/14/2018 14:38:01 06/10/20 17 Date of Last Mammogram completed Dayanna Briseno [facility] 01/13/2018 10:06:12 11/19/19 17 Date of Last Colonoscopy completed Dayanna Briseno [facility] 05/13/2018 14:10:08 03/10/20 15 Colonoscopy completed Dayanna Briseno [facility] 04/09/2016 11:14:49 Cholecystectomy completed Dayanna Briseno [facility] 04/09/2016 11:14:58 Total Hysterectomy completed Dayanna Briseno [facility] 04/09/2016 11:15:03 Orthopedic Surgery completed Isac Jamil MD [address] [facility] [address], [place], [address], [facility] 11/12/2017 20:31:47 Imaging Results None recorded. Procedure Notes None recorded. Medical Equipment None Reported. Allergies Allergen ID Allergen Name Allergen Category Reaction Reaction Severity Criticality Documentation Date Start Date Code Code System Note Provider Name and Address Organization Details Recorded Time 2374 Bactrim medicatio n Not available Not available Not available 04/09/2016 63805 9 [facility] 11:14[facility]17 2375 Substance with sulfonami de structure and antibacte rial mechanism of action (substanc e) medicatio n Not available Not available Not available 04/09/2016 87879 8003 [facility]ED [facility] 6 11:14:24 2376 hydrochlo rothiazid e / lisinopri l medicatio n Not available Not available Not available 04/09/2016 19751 8 [facility] 6 11:14:29 3124 codeine medicatio n Not available Not available Not available 05/14/2016 2670 RxNorm Priscilla Neisz [facility] 6 13:25:01 5178 Product containin g 3-hydroxy -3-methyl glutaryl- coenzyme A reductase inhibitor (product) medicatio n other Not available Not available 01/13/2017 47953 009 SNOMED eleva stephanie liver funct ion Isac Jamil MD [address] [facility] [address], [place], [address], [facility] 7 14:42:18 6256 duloxetin e medicatio n nausea Not available Not available 07/24/2017 43395 RxNorm Isac Jamil MD [address] [facility] [address] [place], [place], [address], [facility] 7 14:59:51 8179 Farxiga medicatio n Not available Not available Not available 04/15/2019 12296 72 RxNorm funga l infec tion Isac Jamil MD [address] [facility] [address] [place], [place], [address], [facility] 9 14:31:48 Medications Name Sig Start Date Stop Date Status Note LastModified by Organization Details LastModified Time Prescriptio n - Prior Authorizati on Request 12/25 completed Not Available Not Available Not Available celecoxib 200 mg capsule 10/01 completed Not Available Not Available Not Available amoxicillin 500 mg capsule 05/14 completed Not Available Not Available Not Available pioglitazon e 15 mg tablet Take 1 tablet every day by oral route. 04/19 completed Not Available Not Available Not Available fluconazole 100 mg tablet Take 1 tablet every day by oral route. 04/15 completed Not Available Not Available Not Available hydralazine 10 mg tablet Take 1 tablet 3 times a day by oral route as needed. 09/18 completed Not Available Not Available Not Available venlafaxine ER 75 mg capsule,ext ended release 24 hr Take 1 capsule every day by oral route. 01/13 completed Not Available Not Available Not Available candesartan 32 mg-hydrochl orothiazide 12.5 mg tablet TAKE 1 TABLET BY MOUTH EVERY DAY IN THE MORNING active Not Available Not Available No t Available gabapentin 600 mg tablet 05/13 completed Not Available Not Available Not Available doxycycline hyclate 100 mg capsule Take 1 capsule twice a day by oral route. 09/05 completed Not Available Not Available Not Available paroxetine 10 mg tablet 04/09 completed Not Available Not Available Not Available atorvastati n 20 mg tablet 04/09 completed Not Available Not Available Not Available clindamycin HCl 300 mg capsule Take 1 capsule every 8 hours by oral route. 12/10 completed Not Available Not Available Not Available trazodone 50 mg tablet TK 1 T PO QD HS active Not Available Not Available No t Available ketoconazol e 200 mg tablet Take 1 tablet every day by oral route. 05/28 completed Not Available Not Available Not Available azithromyci n 250 mg tablet TAKE 2 TABLETS (500 MG) BY ORAL ROUTE ONCE DAILY FOR 1 DAY THEN 1 TABLET (250 MG) BY ORAL ROUTE ONCE DAILY FOR 4 DAYS 09/28 completed Not Available Not Available Not Available fluconazole 150 mg tablet Take 1 tablet every day by oral route. 08/05 completed Not Available Not Available Not Available benzonatate 200 mg capsule Take 1 capsule 3 times a day by oral route. 04/03 completed Not Available Not Available Not Available metoprolol succinate ER 50 mg tablet,exte nded release 24 hr TAKE 1.5 TABLET BY MOUTH EVERY DAY FOR HIGH BLOOD PRESSURE 11/04 completed Not Available Not Available Not Available bacitracin 500 unit/gram eye ointment 04/09 completed Not Available Not Available Not Available sucralfate 1 gram tablet 04/09 completed Not Available Not Available Not Available promethazin e 12.5 mg tablet 12/10 completed Not Available Not Available Not Available ondansetron HCl 4 mg tablet TK 1 T PO TID PRN 08/03 completed Not Available Not Available Not Available clonazepam 0.5 mg tablet Take 1 tablet 3 times a day by oral route. 08/15 completed Not Available Not Available Not Available metoprolol succinate ER 100 mg tablet,exte nded release 24 hr TK 1 T PO QAM active Not Available Not Available No t Available venlafaxine ER 150 mg capsule,ext ended release 24 hr TK 1 C PO QD active Not Available Not Available No t Available clotrimazol e 1 % vaginal cream Insert 1 applicato rful every day by vaginal route. 04/15 completed Not Available Not Available Not Available hydralazine 25 mg tablet Take 1 tablet 3 times a day by oral route. 01/13 completed Not Available Not Available Not Available amlodipine 2.5 mg tablet TAKE 1 TABLET BY MOUTH EVERY DAY IN THE MORNING active Not Available Not Available No t Available potassium chloride ER 10 mEq tablet,exte nded release TAKE 1 TABLET BY MOUTH EVERY DAY active Not Available Not Available No t Available clopidogrel 75 mg tablet TAKE 1 TABLET BY MOUTH EVERY DAY active Not Available Not Available No t Available amlodipine 5 mg tablet TAKE 1 TABLET BY MOUTH EVERY DAY 04/15 completed Not Available Not Available Not Available doxepin 10 mg capsule 04/09 completed Not Available Not Available Not Available ciprofloxac in 500 mg tablet TK 1 T PO Q 12 H 10/01 completed Not Available Not Available Not Available Tamiflu 75 mg capsule Take 1 capsule twice a day by oral route. 12/25 completed Not Available Not Available Not Available tramadol 50 mg tablet TAKE 1 TABLET BY MOUTH THREE TIMES DAILY 07/22 completed Not Available Not Available Not Available zinc oxide 20 % topical ointment Apply 1 applicati on every day by topical route. 10/27 completed Not Available Not Available Not Available acetaminoph en 500 mg tablet TK 1 T PO Q 8 HOURS AROUND THE CLOCK 2020 active Not Available Not Available Not Avai lable bupropion HCl SR 100 mg tablet,12 hr sustained-r elease TAKE 1 TABLET BY MOUTH TWICE DAILY 07/14 completed Not Available Not Available Not Available glimepiride 2 mg tablet TAKE 1 TABLET BY MOUTH EVERY DAY IN THE MORNING active Not Available Not Available No t Available glimepiride 1 mg tablet TAKE 1 TABLET BY MOUTH EVERY DAY active Not Available Not Available No t Available pantoprazol e 20 mg tablet,uyen yed release TK 1 T PO QD UTD active Not Available Not Available No t Available levothyroxi ne 75 mcg tablet TAKE 1 TABLET BY MOUTH EVERY DAY IN THE MORNING active Not Available Not Available No t Available meloxicam 7.5 mg tablet TAKE 1 TABLET BY MOUTH EVERY DAY IN THE MORNING PRN active Not Available Not Available No t Available Tessalon Perles 100 mg capsule Take 1 capsule 3 times a day by oral route. 10/14 completed Not Available Not Available Not Available bupropion HCl 100 mg tablet 05/13 completed Not Available Not Available Not Available levothyroxi ne 88 mcg tablet TK 1 T PO QD IN THE MORNING active Not Available Not Available No t Available alprazolam 0.5 mg tablet TAKE 1 TABLET BY MOUTH THREE TIMES DAILY NEEDED active Not Available Not Available No t Available alprazolam 0.25 mg tablet Take 1 tablet 3 times a day by oral route as needed. 07/15 completed Not Available Not Available Not Available amitriptyli ne 25 mg tablet 1 PO QHS 01/13 completed Not Available Not Available Not Available prednisolon e acetate 1 % eye drops,suspe nsion 04/12 completed Not Available Not Available Not Available baclofen 10 mg tablet TAKE 1 TABLET BY MOUTH TWICE DAILY FOR 15 DAYS NEEDED active Not Available Not Available No t Available cephalexin 500 mg capsule Take 1 capsule every 8 hours by oral route. 08/05 completed Not Available Not Available Not Available paroxetine 20 mg tablet 04/09 completed Not Available Not Available Not Available metformin 1,000 mg tablet TK 1 T PO BID active Not Available Not Available No t Available tobramycin 0.3 % eye drops 05/13 completed Not Available Not Available Not Available ranitidine 150 mg tablet Take 1 tablet twice a day by oral route for 90 days. 12/07 completed Not Available Not Available Not Available telmisartan 80 mg-hydrochl orothiazide 12.5 mg tablet Take 1 tablet every day by oral route in the morning. 04/19 completed Not Available Not Available Not Available gabapentin 300 mg capsule TAKE 1 CAPSULE BY MOUTH TWICE DAILY 09/21 completed Not Available Not Available Not Available omeprazole 20 mg capsule,del ayed release TAKE 1 CAPSULE BY MOUTH EVERY DAY DIRECTED active Not Available Not Available No t Available montelukast 10 mg tablet TAKE 1 TABLET BY MOUTH EVERY DAY FOR ALLERGIES 01/15 completed Not Available Not Available Not Available hydralazine 50 mg tablet TK 1 T PO BID active Not Available Not Available No t Available mupirocin 2 % topical ointment Apply 2 applicati ons every day by topical route. active Not Available Not Available No t Available furosemide 20 mg tablet TAKE 1 TABLET BY MOUTH EVERY DAY active Not Available Not Available No t Available triamcinolo ne acetonide 0.1 % lotion APPLY TO SORES BID PRN active Not Available Not Available No t Available ibuprofen 600 mg tablet 01/05 completed Not Available Not Available Not Available Omnicef 300 mg capsule Take 1 capsule every 12 hours by oral route. 05/13 completed Not Available Not Available Not Available cefuroxime axetil 500 mg tablet 09/17 completed Not Available Not Available Not Available methylpredn isolone 4 mg tablets in a dose pack 04/12 completed Not Available Not Available Not Available losartan 50 mg-hydrochl orothiazide 12.5 mg tablet 05/13 completed Not Available Not Available Not Available fluticasone propionate 50 mcg/actuati on nasal spray,suspe nsion Hasty 1 spray every day by intranasa l route. 2018 active Not Available Not Available Not Avai lable clotrimazol e 1 % topical cream APPLY EXTERNALL Y TO THE AFFECTED AND SURROUNDI NG AREAS TWICE DAILY IN THE MORNING AND IN THE EVENING 11/24 completed Not Available Not Available Not Available sertraline 50 mg tablet Take 1 tablet every day by oral route at bedtime. 05/13 completed Not Available Not Available Not Available diazepam 5 mg tablet 10/15 completed Not Available Not Available Not Available amoxicillin 875 mg-potassiu m clavulanate 125 mg tablet Take 1 tablet every 12 hours by oral route. 01/06 completed Not Available Not Available Not Available Aspir-Earnestine 325 mg tablet,uyen yed release Take 1 tablet every day by oral route. 2019 active Not Available Not Available Not Avai lable oxycodone 5 mg tablet Take 1 tablet every 6 hours by oral route. 05/13 completed Not Available Not Available Not Available neomycin-po lymyxin-hyd rocort 3.5 mg-10,000 unit/mL-1 % ear drops,susp ADMINISTE R 3 DROPS INTO EACH EAR THREE TIMES DAILY active Not Available Not Available No t Available ezetimibe 10 mg tablet TK 1 T PO QD active Not Available Not Available No t Available cyclobenzap rine 5 mg tablet 05/13 completed Not Available Not Available Not Available olmesartan 40 mg-hydrochl orothiazide 12.5 mg tablet Take 1 tablet every day by oral route in the morning. 12/06 completed Not Available Not Available Not Available nitrofurant oin monohydrate /macrocryst als 100 mg capsule Take 1 capsule every 12 hours by oral route. 08/03 completed Not Available Not Available Not Available duloxetine 30 mg capsule,del ayed release Take 1 capsule(s ) every day by oral route. 07/15 completed Not Available Not Available Not Available duloxetine 60 mg capsule,del ayed release Take 1 capsule every day by oral route. 07/24 completed Not Available Not Available Not Available Mucinex DM 30 mg-600 mg tablet,exte nded release 12 hr Take 1 tablet every 12 hours by oral route. 09/22 completed Not Available Not Available Not Available omega-3 acid ethyl esters 1 gram capsule TAKE 2 CAPSULES BY MOUTH TWICE DAILY 05/13 completed Not Available Not Available Not Available Boostrix Tdap 2.5 Lf unit-8 mcg-5 Lf/0.5 mL intramuscul ar suspension 07/10 completed Not Available Not Available Not Available Lyrica 75 mg capsule TAKE 1 CAPSULE BY MOUTH TWICE DAILY active Not Available Not Available No t Available Lyrica 150 mg capsule TAKE ONE CAPSULE BY MOUTH TWICE DAILY 09/21 completed Not Available Not Available Not Available losartan 100 mg-hydrochl orothiazide 12.5 mg tablet TAKE 1 TABLET BY MOUTH EVERY DAY IN THE MORNING 04/15 completed Not Available Not Available Not Available Plavix 07/03 completed Not Available Not Available Not Available valsartan 320 mg-hydrochl orothiazide 12.5 mg tablet Take 1 tablet every day by oral route in the morning. 12/09 completed Not Available Not Available Not Available Zostavax (PF) 19,400 unit/0.65 mL subcutaneou s suspension 07/10 completed Not Available Not Available Not Available Januvia 100 mg tablet 04/15 completed Not Available Not Available Not Available Janumet 50 mg-1,000 mg tablet active Not Available Not Available Not Available Twinrix (PF) 720 ORI unit-20 mcg/mL intramuscul ar syringe 09/30 completed Not Available Not Available Not Available Twinrix (PF) 720 ORI unit-20 mcg/mL intramuscul ar suspension 09/30 completed Not Available Not Available Not Available Voltaren 1 % topical gel APPLY 2 GRAMS TO THE AFFECTED AREA(S) BY TOPICAL ROUTE 4 TIMES PER DAY 2020 active Not Available Not Available Not Avai lable zinc oxide 40 % topical ointment APPLY EXTERNALL Y TO THE AFFECTED AREA EVERY DAY 05/13 completed Not Available Not Available Not Available Nucynta 50 mg tablet 05/13 completed Not Available Not Available Not Available Onglyza 5 mg tablet 04/09 completed Not Available Not Available Not Available Dexilant 60 mg capsule, delayed release 07/10 completed Not Available Not Available Not Available Xifaxan 550 mg tablet 12/09 completed Not Available Not Available Not Available Butrans 10 mcg/hour transdermal patch Apply 1 patch every week by transderm al route. 01/16 completed Not Available Not Available Not Available Cycloset 0.8 mg tablet TAKE 1 TABLET BY MOUTH EVERY DAY 12/18 completed Not Available Not Available Not Available Tradjenta 5 mg tablet Take 1 tablet every day by oral route. 06/07 completed Not Available Not Available Not Available Nucynta ER 100 mg tablet,exte nded release Take 1 tablet every 12 hours by oral route. 10/15 completed Not Available Not Available Not Available Nucynta ER 50 mg tablet,exte nded release TAKE 1 TABLET BY MOUTH THREE TIMES DAILY NEEDED 10/17 completed Not Available Not Available Not Available Vascepa 1 gram capsule Take 1 capsule twice a day by oral route. 11/24 completed Not Available Not Available Not Available Nesina 25 mg tablet 04/09 completed Not Available Not Available Not Available Invokana 100 mg tablet Take 1 tablet every day by oral route. 01/15 completed Not Available Not Available Not Available Farxiga 10 mg tablet Take 1 tablet every day by oral route. 04/15 completed Not Available Not Available Not Available Farxiga 5 mg tablet Take 1 tablet every day by oral route in the morning. 03/12 completed Not Available Not Available Not Available Jardiance 10 mg tablet Take 1 tablet every day by oral route in the morning. 01/13 completed Not Available Not Available Not Available True Metrix Glucose Test Strip TEST THREE TIMES DAILY active Not Available Not Available No t Available oxycodone ER 10 mg tablet,amando h resistant,e xtended release 12 hr Take 1 tablet every 12 hours by oral route. 08/05/ 2016 09/21 /2016 completed Not Available Not Available Not Available Praluent Pen 75 mg/mL subcutaneou s pen injector 01/16 completed Not Available Not Available Not Available Repatha SureClick 140 mg/mL subcutaneou s pen injector active Not Available Not Available Not Available Aspercreme (lidocaine HCl) 4 % topical Apply 1 applicati on every day by topical route. 07/10 completed Not Available Not Available Not Available Shingrix (PF) 50 mcg/0.5 mL intramuscul ar suspension, kit 12/25 completed Not Available Not Available Not Available Bydureon BCise 2 mg/0.85 mL subcutaneou s auto-inject or Inject 2 mg every week by subcutane ous route for 90 days. 07/28 completed Not Available Not Available Not Available Fluzone High-Dose 2018- (PF) 180 mcg/0.5 mL intramuscul ar syringe ADM 0.5ML IM UTD 05/21 completed Not Available Not Available Not Available Fluzone High-Dose Quad 2019- (PF) 240 mcg/0.7 mL IM syringe ADM 0.7ML IM UTD 07/05 completed Not Available Not Available Not Available Vitals Date Recorded Body height Respiratory rate Body mass index (BMI) Body weight Body temperature Heart rate Systolic And Diastolic Provider Name and Address Organization Details Last Updated DateTime 0 160.02 cm 18 /min 29.1 kg/m2 28000.1 5 g 96.6 [degF] 58 /min 135/67 mm[Hg] Sarabjit Sneed [facility] 0 09:00:41 Date Recorded Heart rate Systolic And Diastolic Provider Name and Address Organization Details Last Updated DateTime 03/07/2020 67 /min 133/82 mm[Hg] Isac Jamil MD [address], [place], [address], [facility] 03/07/2020 09:28:25 Date Recorded Body height Respiratory rate Body temperature Body mass index (BMI) Body weight Provider Name and Address Organization Details Last Updated DateTime 0 160.02 cm 18 /min 97.3 [degF] 29.6 kg/m2 50173.9 3 g [facility] 08:54[facility]39 Date Recorded Systolic And Diastolic Provider Name and Address Organization Details Last Updated DateTime 06/06/2020 148/72 mm[Hg] Isac Jamil MD [address], [place], [address], [facility] 06/06/2020 09:29:18 Date Recorded Body height Heart rate Respiratory rate Body temperature Body mass index (BMI) Body weight Provider Name and Address Organization Details Last Updated DateTime 0 160.02 cm 66 /min 18 /min 97.7 [degF] 28.9 kg/m2 60440.5 6 g Sarabjit Crclaudia [facility] 0 08:55:54 Date Recorded Body height Respiratory rate Body temperature Body mass index (BMI) Body weight Provider Name and Address Organization Details Last Updated DateTime 9 160.02 cm 18 /min 98.1 [degF] 28.3 kg/m2 61248.7 8 g Sarabjit Crclaudia [facility] 9 15:19:41 Date Recorded Body height Heart rate Respiratory rate Body temperature Body mass index (BMI) Body weight Systolic And Diastolic Provider Name and Address Organization Details Last Updated DateTime 0 160.02 cm 60 /min 18 /min 97.5 [degF] 28.7 kg/m2 11064.9 6 g 123/61 mm[Hg] Faye Stock [facility] 0 09:08:02 Social History Question Answer Notes LastModified by Organizat ion Details LastModified Time Tobacco Smoking Status Never Smoker Dayanna ellington [facility] 04/09/2016 11:14:35 Do You Have An Advance Directive? No [email or web address] Information n ot available 05/13/2018 In The 14 Days Before Symptom Onset, Have You Had Close Contact With A Laboratory-confirm ed COVID-19 While That Case Was Ill? No Information n ot available 03/07/2020 In The 14 Days Before Symptom Onset, Have You Had Close Contact With A Person Who Is Under Investigation For COVID-19 While That Person Was Ill? No Information not available 03/07/2020 Have You Been To An Area Known To Be High Risk For COVID-19? No Information not available 03/07/2020 Which Illicit Or Recreational Drugs Have You Used? No [facility] Information not available 12/11/2017 Live Alone Or With Others? Alone [email or web address] Information not available 04/09/2016 Marital Status Single [facility] Informatio n not available 12/11/2017 What Was The Date Of Your Most Recent Tobacco Screening? 04/15/2019 Information not available 05/12/2019 Sex: Unknown Functional Status Question Answer Note LastModified by Organization D etails LastModified Time What is your level of alcohol consumption? None [email or web address] Information not available 04/09/2016 Are you currently employed? No [facility] Information not available 12/11/2017 Are you able to care for yourself independently? Yes [facility] Information not available 12/11/2017 Mental Status None recorded. Family History Relationship Description Onset Age of this Age Resolved Age Notes LastModified by Organization Details LastModified Time Father Coronary arterioscler osis 85 [email or web address] Not available 2015 11:15:24 Father Malignant neoplasm of colon [email or web address] Not available 2015 11:15:29 Medical History Condition Response Coronary Artery Disease N Other N Gout N Kidney Stones N Blood Diseases N Hyperthyroidism N Blood Transfusion N Breast Cancer N COPD N Depression Y Lung Disease N Hypothyroidism Y Defects or Inherited Disease N Developmental or Behavioral Disorders N Breast Problem N Difficulty Swallowing N Anesthesia Complications N Meniere's disease N Anxiety Disorder N Muscle, Joint, or Bone Problems N Obesity N Vision or Eye Problems N Arthritis N Polyps N Infertility N Mental Disorder N Cancer N Varicosities N Stroke N Endometriosis N Bladder or Kidney Problems N High Cholesterol Y Liver Disease N Fibromyalgia N Headaches N Kidney Disease N Allergies/Hayfever N Heart Problems N Ear or Hearing Problems N Hospitalizations N Thyroid Problems N GI Problems N ADD/ADHD N Skin Problems N Eating Disorder N Anemia N MRSA exposure N Constipation N Mental Illness N Ovarian Cancer N Diabetes N Bedwetting N Seizures/Epilepsy N Tuberculosis N AIDS/HIV N Congestive Heart Failure (CHF) N Eczema N Diverticulitis N Abuse/Domestic Violence N Asthma N Reflux/GERD N Hepatitis N Heart Disease N Pulmonary Embolism N Pre-Eclampsia N Hypertension Y Chronic Ear Infections N Osteoporosis N Chicken Pox N Autism Spectrum Disorder (ASD) N Thrombophilias N Gynecological History Statement/Question Response Date of Last Mammogram 06/10/2017 Date of Last Colonoscopy 11/19/2016 Obstetrics History GPAL:G 0 P 0 0 0 0 Immunizations Vaccine Type Date Status Note Provider Nam e and Address Organization Details Recorded Time Influenza, split virus, quadrivalent, preservative 8 completed MD Chao Avery [address], [place], [address], [facility] 06/22/2020 10:48:05 Influenza, split virus, quadrivalent, preservative 5 completed MD Chao Avery [address], [place], [address], [facility] 06/22/2020 10:48:05 zoster recombinant 9 completed MD Chao Avery [address], [place], [address], [facility] 06/22/2020 10:48:05 Influenza, high-dose, trivalent, PF 9 completed MD Chao Avery [address], [place], [address], [facility] 06/22/2020 10:48:05 Influenza, high-dose, quadrivalent, PF 0 completed MD [address], [place], [address], [facility] 06/22/2020 10:48:05 Td(adult) unspecified formulation 6 completed MD [address], [place], [address], [facility] 06/22/2020 10:48:05 zoster live 6 completed MD Chao Avery [address], [place], [address], [facility] 06/22/2020 10:48:05 Influenza, split virus, trivalent, preservative 6 completed Not Available [facility] 11/06/2019 02:27:19 Pneumococcal conjugate PCV 13 6 completed MD Chao Avery [facility] [address], [place], [address], [facility] 06/22/2020 10:48:05 Hep A, adult 7 completed MD Chao Avery [facility] [address], [place], [address], [facility] 06/22/2020 10:48:05 Hep A, adult 7 completed MD Chao Avery [address], [place], [address], [facility] 06/22/2020 10:48:05 pneumococcal polysaccharide PPV23 7 completed MD Chao Avery [facility] [address], [place], [address], [facility] 06/22/2020 10:48:05 Past Encounters Encounter ID Performer Location Encounter Start Date Encounter Closed Date Diagnosis/Indication Diagnosis SNOMED-CT Code Diagnosis ICD10 Code Diagnosis IMO Codes Diagnosis Note [id number] Isac Jamil MD [facility], [address] [place] [address] 04/09/2016 13:20:40 04/09/2016 14:41:56 Benign hypertension 32759519 I10 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 Depressive disorder 3548 9007 F32.9 Osteoarthritis 370893308 M19.90 Hypothyroidism 92303263 E03.9 Atrial fibrillation 4943 6004 I48.91 Hyperlipidemia 20070223 E78.5 Diabetes mellitus 085230 09 E11.69 Screening mammography 24 651097 Z12.31 Menopause present 262936 006 N95.1 Cramp in lower limb 4499 18654 R25.2 Screening for malignant neoplasm of cervix 198634423 Z12.4 Active or passive immunization 226636953 Z23 [id number] MD [facility], [place] [address] [address] [place] [address] 05/24/2016 09:49:58 05/24/2016 11:01:11 Osteoarthritis 610919327 M19.90 Lumbago with sciatica 20 6682022 M54.41 seeing pain management Diabetes mellitus 877136 09 E11.69 BG TID ,fax 2 weeks Increased liver function 01548387 R94.5 seeing GI on reg basis Candidiasis of skin 4988 3006 B37.2 [id number] Isac Jamil MD [facility], [address] [place] [address] [place] [address] 06/07/2016 08:42:54 06/07/2016 09:38:44 Cat bite - wound 316136001 W55.01XD [id number] Isac Jamil MD [facility], [address] [place] [address] 07/10/2016 13:23:42 07/10/2016 14:52:36 Benign hypertension 18699693 I10 Hypothyroidism 76248932 E03.9 Hyperlipidemia 46528267 E78.5 Diabetes mellitus 984959 09 E11.69 BG TID ,fax 2 weeks 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 Pressure i njury of buttock 544688782 L89.301 Lumbago with sciatica 20 2626930 M54.41 seeing pain management Active or passive immunization 555413449 Z23 Allergic r hinitis caused by pollen 71503754 J30.1 Screening for malignant neoplasm of cervix 548709663 Z12.4 [id number] Isac Jamil MD [facility], [place] [address] [address] [place] [address] 08/07/2016 09:38:36 08/07/2016 10:23:07 Pressure ulcer 113467575 L89.90 keep pressure off , cont' clinda , F/U 4 weeks Lumbago with sciatica 20 5771990 M54.41 seeing pain management Screening for malignant neoplasm of cervix 717321769 Z12.4 [id number] Isac Jamil MD [facility], [place] [address] [address] [place] [address] 10/15/2016 14:03:41 10/15/2016 14:36:22 Disorder of hair AND/OR hair follicle 76587219 L73.9 Benign hypertension 1072 5009 I10 Atrial fibrillation 4943 6004 I48.91 Hyperlipidemia 89859137 E78.5 Diabetes mellitus 446825 09 E11.69 BG TID ,fax 2 weeks Active or passive immunization 147521384 Z23 Lumbago with sciatica 20 6781450 M54.41 seeing pain management [id number] Isac Jamil MD [facility], [place] [address] [place] [address] 01/13/2017 13:53:23 01/13/2017 14:59:58 Diabetes mellitus 47257679 E11.69 BG TID ,fax 2 weeks Hyperlipidemia 16638980 E78.5 Hypothyroidism 82446688 E03.9 Benign hypertension 1072 5009 I10 BP 2 weeks Osteoarthritis 710460938 M19.90 Liver enzy mes level above reference range 490581272 R74.8 2ry to statin , sees GI every 6 months Active or passive immunization 985560594 Z23 [id number] Isac Jamil MD [facility], [facility] [address] [place] [address] 07/15/2017 15:00:42 07/15/2017 15:58:14 Benign hypertension 24099433 I10 BP 2 weeks Hypothyroidism 64913226 E03.9 Atrial fibrillation 4943 6004 I48.91 Diabetes mellitus 394175 09 E11.69 BG TID ,fax 2 weeks Mixed anxi ety and depressive disorder 562286991 F41.8 Osteoarthritis 602167375 M19.90 Hyperlipidemia 27002713 E78.5 Active or passive immunization 706790907 Z23 [id number] Isac Jamil MD [facility], [place] [address] [place] [address] 04/14/2017 14:36:54 04/14/2017 15:47:16 Umbilical hernia 143886423 K42.9 education , surg if a prob Infection by Taenia [id number] 2007 B68.9 Benign hypertension 1072 5009 I10 BP 2 weeks Non-organi c sleep disorder 513762554 F51.9 Hypothyroidism 45706044 E03.9 Diabetes mellitus 695385 09 E11.69 BG TID ,fax 2 weeks Hypokalemia 24168142 E87 .6 Lumbago with sciatica 20 6620807 M54.41 seeing pain management [id number] Isac Jamil MD [facility], [place] [address] [address] [place] [address] 07/30/2017 09:56:41 07/30/2017 11:12:45 Epigastric pain 29610618 R10.13 Dyspnea 739853267 R06.02 Gastroesop hageal reflux disease without esophagitis 257777152 K21.9 Eruption 946342419 R21 [id number] Isac Jamil MD [facility], [place] [address] [address] [place] [address] 08/15/2017 11:13:23 08/15/2017 11:47:33 Headache 26892746 R51 High lipas e level in serum 144842528 R74.8 [id number] Isac Jamil MD [facility], [place] [address] [address] [place] [address] [place] [address] 09/30/2017 12:23:54 09/30/2017 13:35:26 Benign hypertension 87230257 I10 BP 2 weeks Diabetes mellitus 435035 09 E11.69 Hypothyroidism 46863320 E03.9 Spinal atul nosis in cervical region 50325518 M48.02 Spinal atul nosis of lumbar region 44607233 M48.061 Osteoarthritis 890581871 M19.90 Hyperlipidemia 47464728 E78.5 statin intol , , her LDL need more than 50 % reduction High lipas e level in serum 359791774 R74.8 [id number] Isac Jamil MD [facility], [place] [address] [address] [place] [address] 12/11/2017 13:40:05 12/11/2017 14:38:51 Benign hypertension 44214650 I10 increase losartan //BP 2 weeks Cough 96354446 R05 Diabetes mellitus 746866 09 E11.69 Spinal atul nosis in cervical region 42209563 M48.02 Spinal atul nosis of lumbar region 48289714 M48.061 pain management for poss epidural [id number] Isac Jamil MD [facility], [address] [place] [address] [place] [address] 01/05/2018 14:54:13 01/05/2018 16:04:42 Spinal stenosis of lumbar region 38070440 M48.061 seeing neurosurg AMincrease Lyrica 150 BID , decrease neurontin to 300 BID Recurrent falls 32895698 [address] -ve Lumbago with sciatica 20 8180318 M54.41 seeing pain management [id number] Isac Jamil MD [employer], [address] [place] [address] 01/13/2018 09:41:45 01/13/2018 11:06:02 Slurred speech 908041016 R47.81 has a lot of meds can do that , could be hypoglycem ia , but pt is going for L spine surgery , we need to R/O carotid stenosis and OR CVA , will check MRI and Carotid U/S Diabetes mellitus 970422 09 E11.69 education about hypoglycem ia , decreased amaryl Spinal atul nosis of lumbar region 73878242 M48.061 seeing neurosurg [id number] Isac Jamil MD [facility], [address] [place] [address] [place] [address] 02/11/2018 13:29:54 02/11/2018 14:37:55 Benign hypertension 58802515 I10 increase losartan //BP 2 weeks Hypokalemia 10469306 E87 .6 Diabetes mellitus 231038 09 E11.69 education about hypoglycem ia , decreased amaryl Hyperlipidemia 68619189 E78.5 statin intol , , her LDL need more than 50 % reduction Spinal stenosis 16317648 M48.00 form for transporta tion done Screening mammography 24 576676 Z12.31 last mammogram 06/10/17 Screening for malignant neoplasm of colon 737123794 Z12.11 last C scope 10/2016 [id number] Isac Jamil MD [facility], [address] [place] [address] [place] [address] 05/13/2018 13:30:18 05/13/2018 14:57:27 Adult health examination 158523027 Z00.01 Benign hypertension 1072 5009 I10 //BP 2 weeks Non-organi c sleep disorder 653095620 F51.9 Osteoarthritis 898429041 M19.90 Hypothyroidism 41335082 E03.9 last TSH 04/09/18 Atrial fibrillation 4943 6004 I48.91 now SR , ASA , high risk for fall Hyperlipidemia 88501540 E78.5 statin intol , , her LDL need more than 50 % reduction , will try repatha Diabetes mellitus 571987 09 E11.69 education about hypoglycem ia , last A1c 04/09/18 Spinal atul nosis in cervical region 00375616 M48.02 S/P C spine 10/2017 Spinal atul nosis of lumbar region 66792239 M48.061 S/P 2 L spine surg 10/2017 and 12/2017 Screening mammography 24 874405 Z12.31 last mammogram 06/10/17 Headache 40332375 R51 seen neurology , started amitriptyl ine 25 qhs Screening for malignant neoplasm of cervix 634671949 Z12.4 Carotid ar aleena stenosis 36355900 I65.29 high risk fall , cardiology recommend plavix , pt refuse plavix Screening for malignant neoplasm of colon 072324758 Z12.11 last C scope 10/2016 Tick bite 07032286 S00.9 6XD 2 weeks ago [id number] Isac Jamil MD [employer] [address] [facility] [place] [address] [place] [address] 07/14/2018 13:33:21 07/14/2018 14:42:42 Dysuria 16995572 R30.0 Mixed anxi ety and depressive disorder 371176563 F41.8 Diabetes mellitus 510969 09 E11.69 education about hypoglycem ia , last A1c 04/09/18 Low back pain 489304643 M54.5 Atrial fibrillation 4943 6004 I48.91 now SR , ASA , high risk for fall Screening mammography 24 193367 Z12.31 last mammogram 06/10/17 , per pt had one 2017 Screening for malignant neoplasm of cervix 627835836 Z12.4 Screening for malignant neoplasm of colon 284684816 Z12.11 last C scope 10/2016 Abnormal z inc level in blood 935441379 R79.0 D/C any zinc OTC Hyperlipidemia 15437393 E78.5 statin intol , insurance did not cover PCK9 , on zetia [id number] Isac Jamil MD [facility], [place] [address] [address] [place] [address] 10/14/2018 13:51:17 10/14/2018 14:32:30 Benign hypertension 15632722 I10 increase hydralazin e and metoprolol //BP 2 weeks Hypothyroidism 50611958 E03.9 last TSH 04/09/18 Atrial fibrillation 4943 6004 I48.91 now SR , ASA , high risk for fall Diabetes mellitus 240794 09 E11.69 education about hypoglycem ia , last A1c 07/14/18 Screening mammography 24 012124 Z12.31 last mammogram 06/10/17 , per pt had one 2017 Screening for malignant neoplasm of colon 666268262 Z12.11 last C scope 10/2016 Active or passive immunization 624694740 Z23 [id number] Isca Jamil MD [facility], [place] [address] [address] [place] [address] 12/23/2018 13:33:41 12/23/2018 14:27:51 Atypical chest pain 972677047 R07.89 recent EGD , Muscle pain 60073521 M79 .10 Influenza- like illness 15740959 B34.9 [id number] ASHER SOLORZANO APN [facility], [address] [place] [address] 01/13/2019 13:35:47 01/13/2019 14:14:54 Atypical chest pain 821062300 R07.89 recent EGD ,cardiac CTA planned through Dr. Jerry - 01/18/19 Standard c hest X-ray abnormal 861918564 R93.89 lingular opacity in LLL - nonspecifi c - 12/23/18ling ular and left basilar atelectasi s noted on CTA chest 10/16/19no symptoms - Influenza- like symptoms 109676109 R68.89 completed z helen and tamiflu -symptoms resolved - Diabetes mellitus 510684 09 E11.9 A1C 7.7 10/14/18ja rdiance and farxiga too expensive Carotid ar aleena stenosis 16165304 I65.29 Atrial fibrillation 4943 6004 I48.91 Hyperlipidemia 84733078 E78.00 intolerant of statins -was on repatha -- although cost was unaffordab le -Dr. Jerry has entered pt into assistance program- awaiting approval [id number] Isac Jamil MD [employer], [employer] [address] [place] [address] 04/15/2019 13:38:55 04/15/2019 14:50:52 Low back pain 063834945 M54.5 Benign hypertension 1072 5009 I10 change to telmisarta n //BP 2 weeks Atrial fibrillation 4943 6004 I48.91 now SR , ASA , high risk for fall Hyperlipidemia 59352541 E78.5 statin intol , on repatha since 02/23/19 , on zetialast LDL 12/24/18 Diabetes mellitus 032091 09 E11.69 education about hypoglycem ia , last A1c 01/13/19 Hypothyroidism 43879620 E03.9 last TSH 10/14/18 Screening mammography 24 061242 Z12.31 last mammogram 06/10/17 , per pt had one 2017 Screening for malignant neoplasm of cervix 234879973 Z12.4 pt refuse PAP Screening for malignant neoplasm of colon 367278619 Z12.11 last C scope 10/2016 Active or passive immunization 716594376 Z23 per pt had shingrix Gastroesop hageal reflux disease without esophagitis 550080399 K21.9 [id number] Isac Jamil MD [employer], [facility] [address] [facility] [address] [place] [address] 06/07/2019 15:02:21 06/07/2019 15:48:49 Adult health examination 296002852 Z00.01 Benign hypertension 1072 5009 I10 change telmisarta n to candesarta n //BP 2 weeks Non-organi c sleep disorder 173215111 F51.9 education , Hypothyroidism 72696320 E03.9 last TSH 04/15/19 Osteoarthritis 855188432 M19.90 stable Atrial fibrillation 4943 6004 I48.91 now SR , ASA , high risk for fall Hyperlipidemia 41659491 E78.5 statin intol , on repatha since 02/23/19 , on zetialast LDL 12/24/18 was above goal Carotid ar aleena stenosis 92649283 I65.29 high risk fall , cardiology recommend plavix , pt refuse plavix Diabetes mellitus 159548 09 E11.69 education about hypoglycem ia , last A1c 04/15/19 Spinal atul nosis in cervical region 96897613 M48.02 S/P C spine 10/2017 Spinal atul nosis of lumbar region 21175533 M48.061 S/P 2 L spine surg 10/2017 and 12/2017 Menopause 376291716 Z78. 0 Gastroesop hageal reflux disease without esophagitis 781209350 K21.9 education Mixed anxi ety and depressive disorder 471828171 F41.8 NO SI,NO HI Cramp in lower limb 4499 98475 R25.2 Dizziness 497133060 R42 gone now , prob dehydratio n Body mass index 25-29 - overweight 267017895 Z68.28 education Screening mammography 24 721923 Z12.31 last mammogram 05/04/19 Screening for malignant neoplasm of cervix 425809616 Z12.4 pt refuse PAP Screening for malignant neoplasm of colon 664317093 Z12.11 last C scope 10/2016 Active or passive immunization 011013227 Z23 per pt had shingrix Tick bite 31039672 S00.9 6XD 2 weeks ago [id number] Isac Jamil MD [facility] [employer], [employer] [facility] [address] [place] [address] 12/07/2019 08:44:22 12/07/2019 09:28:24 Benign hypertension 15854444 I10 //BP 2 weeks Atrial fibrillation 4943 6004 I48.91 now SR , ASA , high risk for fall Coronary arteriosclerosis 35331705 I25.10 Diabetes mellitus 405556 09 E11.69 education about hypoglycem ia , last A1c 09/28/19la st ophth 12/02/19dec rease glimepirid e to 1 mg , restart cycloset Mixed anxi ety and depressive disorder 587286585 F41.8 NO SI,NO HI Anemia 853654409 D64.9 Hyperlipidemia 10536112 E78.5 statin intol , on repatha since 02/23/19 , on zetialast LDL 06/09/19 was @ goal Screening mammography 24 142019 Z12.31 last mammogram 05/04/19 Screening for malignant neoplasm of cervix 177462990 Z12.4 pt refuse PAP Screening for malignant neoplasm of colon 054155216 Z12.11 last C scope 10/2016 Active or passive immunization 325787619 Z23 per pt had shingrix Carotid ar aleena stenosis 81363300 I65.29 high risk fall , cardiology recommend plavix , pt refuse plavix Obstructiv e sleep apnea of adult 7494916493 103 G47.33 education , intol to CPAP [id number] Isac Jamil MD [employer], [employer] [address] [place] [address] ,[address] [address] 03/07/2020 08:39:39 03/07/2020 09:31:40 Benign hypertension 67891645 I10 //BP 2 weeks Carotid ar aleena stenosis 72796253 I65.29 high risk fall , cardiology recommend plavix , Diabetes mellitus 147709 09 E11.69 education about hypoglycem ia , last A1c 09/28/19la st ophth 12/02/19dec rease glimepirid e to 1 mg ,try tradjenta Hyperlipidemia 75552228 E78.5 statin intol , on repatha since 02/23/19 , on zetialast LDL 12/07/19 was @ goal Hypothyroidism 67868463 E03.9 last TSH 04/15/19 Menopause 951302547 Z78. 0 last DEXA 06/09/19 Mixed anxi ety and depressive disorder 070130796 F41.8 NO SI,NO HI Obstructiv e sleep apnea of adult 5262434789 103 G47.33 education , intol to CPAP Screening mammography 24 442670 Z12.31 last mammogram 05/04/19 Screening for malignant neoplasm of cervix 602516839 Z12.4 pt refuse PAP Screening for malignant neoplasm of colon 257393649 Z12.11 last C scope 05/02/16 , good for 5 years Active or passive immunization 988849971 Z23 per pt had shingrix Osteoarthritis 774645763 M19.90 stable Hypokalemia 18618492 E87 .6 [id number] Isac Jamil MD [facility], [facility] [address] [place] [address] 06/06/2020 08:46:45 06/06/2020 09:33:44 Benign hypertension [id number] I10 //BP 2 weeks Diabetes mellitus 968532 09 E11.69 education about hypoglycem ia , last A1c 03/07/20las t ophth 12/02/19 Hyperlipidemia 12377416 E78.5 statin intol , on repatha since 02/23/19 , on zetialast LDL 12/07/19 was @ goal Hypothyroidism 83675976 E03.9 last TSH 03/07/20 Mixed anxi ety and depressive disorder 196394713 F41.8 NO SI,NO HIadd trazodone Menopause 294195546 Z78. 0 last DEXA 06/09/19 Obstructiv e sleep apnea of adult 7524681549 103 G47.33 education , intol to CPAP Carotid ar aleena stenosis 48810888 I65.29 last US 03/16/20 Atrial fibrillation 4943 6004 I48.91 now SR , ASA , high risk for fall Screening mammography 24 563877 Z12.31 last mammogram 05/05/20 Screening for malignant neoplasm of cervix 339701968 Z12.4 pt refuse PAP Screening for malignant neoplasm of colon 393972639 Z12.11 last C scope 05/02/16 , good for 5 years Active or passive immunization 249460101 Z23 per pt had shingrix [id number] Isac Jamil MD [employer] [employer] [address] [place] [address] 07/28/2020 08:40:11 07/28/2020 09:36:03 Benign hypertension 08637518 I10 //BP 2 weeks Diabetes mellitus 150807 09 E11.69 education about hypoglycem ia , last A1c 06/06/20las t ophth 12/02/19 Hyperlipidemia 70744326 E78.5 statin intol , on repatha since 02/23/19 , on zetialast LDL 07/06/20 was @ goal Hypothyroidism 33766801 E03.9 last TSH 03/07/20 Mixed anxi ety and depressive disorder 309375979 F41.8 NO SI,NO HIadd trazodone Obstructiv e sleep apnea of adult 2331398247 103 G47.33 education , intol to CPAP Neoplasm of pancreas [address] abd 07/06/20 , recheck MRI 6 months Screening mammography 24 514476 Z12.31 last mammogram 05/05/20 Screening for malignant neoplasm of cervix 801077672 Z12.4 pt refuse PAP Screening for malignant neoplasm of colon 081080931 Z12.11 last C scope 05/02/16 , good for 5 years Active or passive immunization 282880750 Z23 per pt had shingrix Dysuria 23856934 R30.0 Carotid ar aleena stenosis 33645170 I65.29 last US 03/16/20 Low back pain 177005914 M54.5 Health Concerns Section Related Observation LastModified by Organization Detai ls LastModified Time None Recorded Concern Status LastModified by Organization Details LastModified Time None Recorded Advance Directives Directive N: Payers Insurance Date Sequence Insurance Name Policy Number Policy Haque Covered Member ID Haque Member ID Guarantor Name 11/26/2021 1 [place] Rosario Walton [id number] Rosario Walton 08/01/2020 2 [employer] Rosario Walton [id number] Rosario Walton Notes Date Note Type Note Provider Name and Address Organization Details Recorded Time 06/07/2019 text/html Medicare Annual Wellness VisitReported by PatientSocial/Behavio ral HistoryFor diet and nutrition, patient reportshealthy diet. For fracture risk, patient reportsno history of fractures,no recent explained fracture,no sudden unexplained fractures, andno previous musculoskeletal injuries. For physical activity, patient reportsrecent increase in physical activity,good physical condition, anddiscussed exercise habits.Mental Status:For depression risk, patient reportsnever feels sad, empty, or tearful,no loss of interest in activities,no significant changes in weight,no sleep disturbances or insomnia,no agitation,no loss of energy,no feelings of worthlessness or guilt,no thoughts of suicide,no history of depression, andno history of mood disorders. For orientation, patient reportsno disorientation to time,no disorientation to date, andno disorientation to place. For concentration and memory, patient reportsno decreased concentrating ability,no memory lapses or loss, anddoes not forget words. For speech/motor difficulties, patient reportsno speech difficulties,no difficulty expressing formulated concepts,no difficulty with fine manipulative tasks,no difficulty writing/copying,no slowed reaction time, anddoes not knock things over when trying to pick them up.Functional AbilityFor hearing, patient reportsno loss of hearing. For vision, patient reportsno vision problems. For activities of daily living, patient reportsable to bathe with limited or no assistance,able to contol urination and bowels,able to dress with limited or no assistance,able to feed self with limited or no assistance,able to get out of chair or bed with limited or no assistance,able to groom with limited or no assistance, andable to toilet with limited or no assistance. For instrumental activities of daily living, patient reportsable to do house work with limited or no assistance,able to grocery shop with limited or no assistance,able to manage medications with limited or no assistance,able to manage money with limited or no assistance,able to prepare meals with limited or no assistance, andable to use the phone with limited or no assistance. For falls risk assessment, patient reportsno frequent falls while walking,no fall in the past year,no dizziness/vertigo, andfall(s) since last visit2. For home safety, patient reportsno vision or hearing loss while driving. Hypertension F/UReported by PatientHPIFor medications, patient reportstaking medications as directedandno side effects from medication. For lifestyle, patient reportsregular exercise,limiting/jose carlos iding salt, andcompliant with low salt diet. For associated symptoms, patient reportsno dizziness,no lightheadedness,no chest pain,no shortness of breath,no palpitations,no edema,no calf pain with exertion, andno headache. had 2 falls since last visit after cleaning basement @ her househad leg swelling , got better after 4 days of lasix had tick bit 2 weeks ago ]still have droop feet Isac Jamil MD [address], [place], [address], [facility] 06/07/2019 15:47:38 12/07/2019 text/html Hypertension F/UReported by PatientHPIFor medications, patient reportstaking medications as directedandno side effects from medication. For lifestyle, patient reportsregular exercise,limiting/jose carlos iding salt, andcompliant with low salt diet. For associated symptoms, patient reportsno dizziness,no lightheadedness,no chest pain,no shortness of breath,no palpitations,no edema,no calf pain with exertion, andno headache. hypoglycemia on and off MD Chao Avery [address], [place], [address], [facility] 12/07/2019 09:26:10 03/07/2020 text/html Hypertension F/UReported by PatientHPIFor medications, patient reportstaking medications as directedandno side effects from medication. For lifestyle, patient reportsregular exercise,limiting/jose carlos iding salt, andcompliant with low salt diet. For associated symptoms, patient reportsno dizziness,no lightheadedness,no chest pain,no shortness of breath,no palpitations,no edema,no calf pain with exertion, andno headache. MD Chao Avery [address], [facility] [address], [facility] 03/07/2020 09:29:55 06/06/2020 text/html Hypertension F/UReported by PatientHPIFor medications, patient reportstaking medications as directedandno side effects from medication. For lifestyle, patient reportsregular exercise,limiting/jose carlos iding salt, andcompliant with low salt diet. For associated symptoms, patient reportsno dizziness,no lightheadedness,no chest pain,no shortness of breath,no palpitations,no edema,no calf pain with exertion, andno headache. MD Chao Avery [address], [place], [address], [facility] 06/06/2020 11:28:14 07/28/2020 text/html Hypertension F/UReported by PatientHPIFor medications, patient reportstaking medications as directedandno side effects from medication. For lifestyle, patient reportsregular exercise,limiting/jose carlos iding salt, andcompliant with low salt diet. For associated symptoms, patient reportsno dizziness,no lightheadedness,no chest pain,no shortness of breath,no palpitations,no edema,no calf pain with exertion, andno headache. Isac Jamil MD [address], [place], [address], [facility] 07/28/2020 09:33:12 OBGyn Episode No OBEpisode recorded.
== END 2025-09-03 13:21 | disposition home or self-care (01) ==
PROVIDERS: PCP Family Medicine; Visit Provider Family Medicine
DX: R51.9 Headache, unspecified (principal); G89.29 Other chronic pain; R42 Dizziness and giddiness
CPT/HCPCS: 70551